=== PATIENT | female | born 1960 ===

== ENCOUNTER → 2020-07-29 09:43 | Outpatient (BNVA) | payer MEDICAID, SELFPAY | PROVIDERS: PCP Nurse Practitioner Family; Visit Provider Student in an Organized Health Care Education/Training Program | DX: Z76.89 Persons encountering health services in other specified circumstances (principal) ==

== ENCOUNTER → 2021-05-09 09:44 | Outpatient (BNV) | payer MEDICARE, MEDICAID, SELFPAY | PROVIDERS: PCP General Practice; Visit Provider Internal Medicine Medical Oncology | DX: D64.9 Anemia, unspecified (principal) | CPT/HCPCS: 99212; 99213; 99214 ==

== ENCOUNTER → 2021-10-28 10:26 | Outpatient (BNVA) | payer MEDICARE, MEDICAID, SELFPAY | PROVIDERS: PCP General Practice; Visit Provider Nurse Practitioner Family | DX: M47.816 Spondylosis without myelopathy or radiculopathy, lumbar region (principal); M79.7 Fibromyalgia | CPT/HCPCS: 99212 ==

== ENCOUNTER → 2022-11-17 10:52 | Outpatient (BNVA) | payer MEDICARE, MEDICAID, SELFPAY | PROVIDERS: PCP General Practice; Visit Provider Nurse Practitioner Family | DX: M79.7 Fibromyalgia (principal); M47.816 Spondylosis without myelopathy or radiculopathy, lumbar region | CPT/HCPCS: 36415; 80053; 85025; 99212 ==

== ENCOUNTER 2022-11-17 11:46 | Outpatient (REF) | payer MEDICARE, MEDICAID, SELFPAY ==
[2022-11-17 13:10] LABS: MANUAL DIFF FLAG NO
[2022-11-17 13:15] LABS: Basophils Absolute Auto 0.1 X10*3/uL (0.0-0.2); Basophils Percent Auto 0.9 % (0-2); Eosinophils Absolute Auto 0.2 X10*3/uL (0.0-0.4); Hematocrit 34.9 % (37.0-47.0); Hemoglobin 10.8 g/dl (12.0-16.0); Imm Gran Abs Auto 0.05 X10*3/uL (0.00-0.03); Imm Gran Pct Auto 0.5 % (0.0-0.4); Lymphocytes Absolute Auto 2.7 X10*3/uL (1.2-4.9); Lymphocytes Percent Auto 25.1 % (20-40); Mean Corpuscular HGB Conc 30.9 g/dl (31.0-35.0); Mean Corpuscular Hemoglobin 25.8 pg (27.0-33.0); Mean Corpuscular Volume 83.5 fL (80.0-98.0); Monocytes Absolute Auto 0.7 X10*3/uL (0.1-1.2); Monocytes Percent Auto 6.7 % (2-11); Neutrophils Percent Auto 64.8 % (45-73); Platelet Count 326 X10*3/uL (160-400); Red Blood Count 4.18 X10*6/uL (4.20-5.50); Red Cell Distribution Width 12.2 % (11.0-16.0); White Blood Count 10.8 X10*3/uL (4.8-10.8)
[2022-11-17 13:52] LABS: Alanine Aminotransferase 25 U/L (0-31); Albumin Level 4.3 g/dL (3.5-5.0); Alkaline Phosphatase 77 U/L (39-117); Anion Gap 10 (12-20); Aspartate Amino Transferase 19 U/L (5-31); Bilirubin Total 0.4 mg/dL (0.0-1.0); Blood Urea Nitrogen 14 mg/dL (9-16); Calcium 9.9 mg/dL (8.4-10.2); Carbon Dioxide 31 mmol/L (22-29); Chloride 103 mmol/L (96-108); Estimated Glomerular Filt Rate > 60; Glucose Random 102 mg/dL (60-115); Potassium 4.2 mmol/L (3.3-5.1); Sodium 140 mmol/L (135-145); Total Protein 7.5 g/dL (6.5-8.0)
== END 2022-11-17 11:47 | disposition home or self-care (01) ==
LOC: HO.10HDL 11:46
PROVIDERS: Visit Provider Nurse Practitioner Family
DX: Z13.89 Encounter for screening for other disorder (principal)
CPT/HCPCS: 36415; 80053; 85025

== ENCOUNTER 2023-03-14 10:58 | Outpatient (AMB) | payer MEDICARE, MEDICAID, SELFPAY ==
--- NOTE | 2023-03-14 11:06 | A.OFFVIS_ITS ---
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 Personnel Quality Assurance Auditor Required: Yes Personnel Quality Assurance Auditor Language: Online Marketing Manager Name: Emilia [id number] [employer] Ipad Accompanied by: Self / Same As Patient Allergies aspirin [ASA] Allergy (Intermediate, Verified 03/14/23 11:09) Rash doxycycline [DOXYCYCLINE] Allergy (Intermediate, Verified 03/14/23 11:09) CHEST PAIN, RASH Medication List - Last Reconciled 03/14/23 by Salo Delgado MD ascorbic acid (vitamin C) (Vitamin C) 1 tab PO DAILY cholecalciferol (vitamin D3) (Vitamin D3) 1 cap PO DAILY dietary supplement 675 caps PO DAILY dietary supplement 790 caps PO DAILY ferrous sulfate 1 tab PO BID ibuprofen 1 tab PO TID PRN lisinopril-hydrochlorothiazide 20-25 mg 1 tab PO DAILY omeprazole 20 mg PO DAILY HPI HPI Comments History of Present Illness Details [age] year female who is referred to us for palpitations. She has background history of iron deficiency anemia and has been on iron supplements and vitamin-C. She has been experiencing palpitations specially when she is going up stairs. She also gets some shortness of breath. No chest discomfort. She is saying that she get these symptoms approximately 2 to 3 times a week. Today she climbed up couple of flights of stairs to reach the office and had palpitations. Blood pressure control is good. She has known history hypertension is currently taking lisinopril and hydrochlorothiazide combination. She has not had any TSH testing in the last couple of years. has dementia and also underwent bypass surgery and she is under lot of stress too. [facility] Medical History Fibromyalgia Hair loss Lumbar spondylosis Surgical History History of lumpectomy of left breast Hx of carpal tunnel repair Hx of cholecystectomy Family History Mother HTN (hypertension) Brother Prostate cancer Daughter Diabetes Asthma HTN (hypertension) Social History Household Members: Spouse and Children Housing: House Are you a primary pet care technician to a significant other at home: No Do you presently have visiting nurse or other home services: No Alcohol intake: never Patient Tobacco Use Status: Never used Tobacco service: No Current occupational status: disabled Review of Systems Const Denies chills, Denies daytime sleepiness, Denies fatigue, Denies fever(s), Denies frequent falls, Denies night sweats, Denies snoring, Denies weakness, Denies weight gain and Denies weight loss Eyes Denies loss of vision ENT Denies dizziness and Denies hearing loss Card Denies chest pain, Denies chest pain with activity, Denies syncope, Denies rapid heart rate, Denies edema, Denies claudication, Denies leg edema, Denies lightheadedness, Denies palpitations, Denies dyspnea, Denies dyspnea on exertion and Denies orthopnea Resp Denies cough, Denies excessive phlegm production, Denies dyspnea, Denies dyspnea on exertion, Denies snoring and Denies wheezing GI Denies abdominal pain, Denies hematochezia, Denies change in bowel habits, Denies change in stool character, Denies heartburn, Denies nausea and Denies vomiting Denies hematuria, Denies urinary frequency and Denies dysuria Musc Denies arthralgias, Denies muscle weakness, Denies numbness and Denies tingling Skin/Breast Denies nail changes and Denies rash Neuro Denies Abnormal speech present, Denies dizziness, Denies syncope, Denies frequent falls, Denies loss of vision, Denies memory loss, Denies numbness, Denies tingling and Denies weakness Psych Denies depression and Denies memory loss Endo Denies fatigue and Denies palpitations Aller/Immun Denies wheezing Physical Exam Vital Signs: Last Vital Signs Pulse 62 03/14/23 11:07 BP 124/74 03/14/23 11:07 BMI result Body Mass Index 34.5 GENERAL APPEARANCE: in no acute distress, pleasant. NECK: no carotid bruit, no jugular venous distention. SKIN: no suspicious lesions, warm and dry. HEART: no murmurs, regular rate and rhythm. LUNGS: clear to auscultation bilaterally. ABDOMEN: soft, nontender. EXTREMITIES: no edema. PERIPHERAL PULSES: equal. NEUROLOGIC: No gross deficits, AAO X 3 Neuro Speech: No Abnormal speech present Office Procedures EKG Details: Normal sinus rhythm 62 beats per minute, left axis deviation, left ventricular hypertrophy, QTC 432 milliseconds. [id number], Complete Assessment & Plan Assessment & Plan (1) Palpitations: Code(s): R00.2 - Palpitations (2) Essential hypertension: Code(s): I10 - Essential (primary) hypertension Plan Pleasant 62 year female with hypertension and palpitations. Blood pressure control is good on the current regimen. She should have once a year basic metabolic panel and fasting lipid panel. She has iron deficiency anemia and has been on iron supplements and vitamin-C. Palpitations can be related to anemia, other possibilities are significant stress in her life due to her 's illness. She has not had any TSH monitoring recently. We will check for hyperthyroidism. I will arrange a 7 day Holter monitor for her. We will also inject echocardiogram to rule out any structural heart issues. Follow-up with us in few months. Thank you for allowing me to participate in the care of your patient. Please feel free to contact me if you have any questions. Orders: Orders CA echo transthoracic complete Today R00.2 - Palpitations TSH reflex Free T4 Today R00.2 - Palpitations ECG 7 day holter monitor Today R00.2 - Palpitations Coding Level of Care Code New Pt Level 4 (85844) Diagnoses Palpitations R00.2 Essential hypertension I10 CPT Codes EKG - CPT: 47627-[id number], Complete ([id number])
[2023-03-14 11:07] VITALS: BP 124/74; PULSE 62; BMI 34.5
== END 2023-03-14 11:30 | disposition home or self-care (01) ==
LOC: HO.HCSM 10:58
PROVIDERS: PCP General Practice; Visit Provider Internal Medicine Cardiovascular Disease
DX: R00.2 Palpitations (principal); I10 Essential (primary) hypertension
CPT/HCPCS: 93010; 99204

== ENCOUNTER → 2023-03-14 10:58 | Outpatient (BNVA) | payer MEDICARE, MEDICAID, SELFPAY | PROVIDERS: PCP General Practice; Visit Provider Internal Medicine Cardiovascular Disease | DX: R00.2 Palpitations (principal); I10 Essential (primary) hypertension | CPT/HCPCS: 36415; 84443; 93005; 99202 ==

== ENCOUNTER 2023-03-14 11:46 | Outpatient (REF) | payer MEDICARE, MEDICAID, SELFPAY ==
[2023-03-14 14:33] LABS: TSH reflex Free T4 1.86 uIU/mL (0.32-4.0)
== END 2023-03-14 11:47 | disposition home or self-care (01) ==
LOC: HO.HHCL 11:46
PROVIDERS: Visit Provider Internal Medicine Cardiovascular Disease
DX: Z13.89 Encounter for screening for other disorder (principal)
CPT/HCPCS: 36415; 84443

== ENCOUNTER → 2023-04-12 12:52 | Outpatient (REF) | payer MEDICARE, MEDICAID, SELFPAY ==
--- NOTE | 2023-04-12 12:54 | CA_ITS ---
Transthoracic Echocardiogram Patient (Last, First, Middle): Lkashmi Salguero, Gender: Female Date of : 1960 Age: 62 Procedure Date: 04/12/2023 Procedure Type: Transthoracic Echocardiogram Location: OP Height: 160.02 cm Weight: 89.36 kg BSA: 1.92 m2 Heart Rate: bpm BP: 128 / 76 mmHg Courtesy Car Driver: RONAN Referring MD: Salo Delgado MD Environmental Conservation Officer: Salo Delgado MD Symptoms: R00.2 - Palpitations Study Quality: Fair ECG Rhythm: Sinus Conclusions: - The left ventricular systolic function is normal. The visually estimated ejection fraction is between 55-60%. - No obvious valvular pathology seen on this study. Findings Procedure Information The patient declines contrast. Left Ventricle Normal left ventricular cavity size. There is mildly increased left ventricular wall thickness. The left ventricular systolic function is normal. The visually estimated ejection fraction is between 55-60%. There is no evidence of regional wall motion abnormalities. Diastolic function is normal for age. Right Ventricle Normal right ventricular cavity size and systolic function. Atria Both atria are normal in size. Aortic Valve There is a normal trileaflet aortic valve. There is no aortic valve stenosis. There is no aortic valve regurgitation. Mitral Valve The mitral valve appears normal. There is no mitral valve regurgitation. There is no mitral valve stenosis. Pulmonic Valve The pulmonic valve is likely normal. Tricuspid Valve Normal tricuspid valve structure. There is no tricuspid valve regurgitation. Tricuspid regurgitation envelope is inadequate for calculation of right ventricular systolic pressure. Great Vessels The asc aorta is normal in size. Venous The inferior vena cava was not well visualized. Pericardium/Pleural There is no evidence of pericardial effusion. Prior Study Comparison No significant change compared to prior study dated: 11/16/2009. Recommendations, Care & Conclusions No obvious valvular pathology seen on this study. Measurements 2D Linear Measurements IVSd: 0.96 0.6-0.9/0.6-1.0 cm LVIDd: 4.90 3.9-5.3/4.2-5.9 cm LVIDd Index: 2.55 2.4-3.2/2.2-3.1 cm/m2 LVIDs: 3.71 2.0-3.6 cm LVPWd: 1.16 0.7-1.1 cm LA Diam: 4.00 2.7-3.8/3.0-4.0 cm LAIDs Index: 2.08 1.5-2.3 cm/m2 LV Mass: 236.82 67-162/88-224 g LV Mass Index: 123.34 43-95/49-115 g/m2 LVOT Diam: 2.10 3.0+(-)1.3 cm Mitral Valve MV Pk E: 0.76 MV PK A: 0.89 MV Decel Time: 327.00 E/A: 0.90 E'Lateral: 10.90 E'Medial: 6.31 E/E' Med: 12.10 E/E' Lat: 7.00 PHT: 96.00 MVA PHT: 2.29 Decel [place]: 2.33 Aortic Valve AoV Pk Lul: 1.30 AoV Mn Lul: 0.90 AoV VTI: 0.31 AoV Pk Grad: 7.00 Aov Mn Grad: 4.00 MACK Cont.VTI: 2.48 LVOT LVOT Pk Lul: 0.95 LVOT Mn Lul: 0.63 LVOT VTI: 0.22 LVOT Pk Grad: 4.00 LVOT Mn Grad: 2.00 LVOT Diam: 2.10 LVOT Area: 3.46 Diastolic Function MV Pk E: 0.76 MV Pk A: 0.89 E/A: 0.90 E'Medial: 6.31 E/E' Med: 12.10 E' Laterial: 10.90 E/E' Lat: 7.00 Great Vessels Aorta Sinus of Valsalva: 3.27 2.0-3.[address] [place]: 2.10 1.7-3.4 cm Ao Asc: 3.00 2.1-3.4 cm Updated in Other Vendor System with Status of Final Prosper Macias MD electronically signed on 04/14/2023 10:06:09 AM with status of Final
--- NOTE | 2023-04-12 12:54 | HM_ITS ---
* Total monitoring time about 7 days. * Underlying rhythm is sinus. Average ventricular rate 72/Min. Range 43 to 121/Min. * Occasional supraventricular ectopy with a burden of 0.4%. Brief runs noted. Longest 27 beats. * Occasional ventricular ectopy. Foley of 0.25%. Two short runs. Longest 9 beats- cannot exclude supraventricular rhythm with aberrancy. * No significant pauses or AV blocks. * Palpitations in diary correlates with supraventricular ectopy. MTDD
[2023-04-12 14:05] LABS: MANUAL DIFF FLAG NO
[2023-04-12 14:50] LABS: Basophils Absolute Auto 0.1 X10*3/uL (0.0-0.2); Basophils Percent Auto 0.9 % (0-2); Eosinophils Absolute Auto 0.3 X10*3/uL (0.0-0.4); Eosinophils Percent Auto 2.5 % (0-4); Hematocrit 35.8 % (37.0-47.0); Hemoglobin 11.1 g/dl (12.0-16.0); Imm Gran Abs Auto 0.05 X10*3/uL (0.00-0.03); Imm Gran Pct Auto 0.4 % (0.0-0.4); Lymphocytes Absolute Auto 2.8 X10*3/uL (1.2-4.9); Lymphocytes Percent Auto 24.7 % (20-40); Mean Corpuscular Hemoglobin 26.1 pg (27.0-33.0); Mean Corpuscular Volume 84.2 fL (80.0-98.0); Mean Platelet Volume 12.2 fL (9.4-12.3); Monocytes Absolute Auto 0.8 X10*3/uL (0.1-1.2); Neutrophils Absolute Auto 7.2 x10*3/uL (2.0-8.3); Neutrophils Percent Auto 64.5 % (45-73); Platelet Count 353 X10*3/uL (160-400); Red Blood Count 4.25 X10*6/uL (4.20-5.50); Red Cell Distribution Width 12.4 % (11.0-16.0); White Blood Count 11.2 X10*3/uL (4.8-10.8)
[2023-04-12 16:04] LABS: Anion Gap 11 (12-20); Blood Urea Nitrogen 13 mg/dL (9-16); Calcium 10.4 mg/dL (8.4-10.2); Carbon Dioxide 31 mmol/L (22-29); Chloride 102 mmol/L (96-108); Cholesterol 181 mg/dL (<200); Estimated Glomerular Filt Rate 56; Glucose Random 101 mg/dL (60-115); HDL Cholesterol 43 mg/dL (>40); LDL Cholesterol Calculated 119 mg/dL (<100); Potassium 3.9 mmol/L (3.3-5.1); Sodium 140 mmol/L (135-145); Triglycerides 98 mg/dL (<150)
== END ==
LOC: HO.CARD 12:52
PROVIDERS: PCP General Practice; Visit Provider Internal Medicine Cardiovascular Disease
DX: R00.2 Palpitations (principal); Z13.89 Encounter for screening for other disorder
CPT/HCPCS: 36415; 80048; 80061; 85025; 93242; 93306

== ENCOUNTER → 2023-04-12 12:54 | Outpatient (BNV) | payer MEDICARE, MEDICAID, SELFPAY | PROVIDERS: PCP General Practice; Visit Provider Internal Medicine | DX: I47.1 Supraventricular tachycardia (principal) | CPT/HCPCS: 93244; 93306 ==

== ENCOUNTER 2023-06-25 12:45 | Outpatient (AMB) | payer MEDICARE, MEDICAID, SELFPAY ==
--- NOTE | 2023-06-25 12:47 | MHC.OFFVIS ---
Intake Vital Signs 06/25/23 12:54 Height 5 ft 3 in Weight 194 lb 0.108 oz BMI 34.4 BP 118/62 Blood Pressure Location Lt brachial Position Sitting Pulse 68 Pulse Source Palpation Intake Visit Reasons: 3 month follow up after testing Intake Note: Lakshmi is a 62 year old female who presents today for a follow up appointment. Patient reports she is doing well. She states that her metropolol is making her a bit tired. Allergies aspirin [ASA] Allergy (Intermediate, Verified 05/21/23 15:05) Rash doxycycline [DOXYCYCLINE] Allergy (Intermediate, Verified 05/21/23 15:05) CHEST PAIN, RASH Medication List - Last Reconciled 06/25/23 by Salo Delgado MD ascorbic acid (vitamin C) (Vitamin C) 1 tab PO DAILY cholecalciferol (vitamin D3) (Vitamin D3) 1 cap PO DAILY dietary supplement 675 caps PO DAILY dietary supplement 790 caps PO DAILY ferrous sulfate 1 tab PO BID ibuprofen 1 tab PO TID PRN lisinopril-hydrochlorothiazide 20-25 mg 1 tab PO DAILY metoprolol succinate ER (Toprol XL) 25 mg PO DAILY omeprazole 20 mg PO DAILY HPI HPI Comments History of Present Illness Details [age] year female who is referred to us for palpitations. She has background history of iron deficiency anemia and has been on iron supplements and vitamin-C. She has been experiencing palpitations specially when she is going up stairs. She also gets some shortness of breath. No chest discomfort. She is saying that she get these symptoms approximately 2 to 3 times a week. Today she climbed up couple of flights of stairs to reach the office and had palpitations. Blood pressure control is good. She has known history hypertension is currently taking lisinopril and hydrochlorothiazide combination. She has not had any TSH testing in the last couple of years. has dementia and also underwent bypass surgery and she is under lot of stress too. 06/25/23: She returns for f/u. She is saying that she feels fatigued after taking metoprolol. She also has iron deficiency anemia and is getting iron infusions and following with Hematology. Continues to get some palpitations off and on. No chest discomfort shortness of breath. [facility] Medical History Fibromyalgia Hair loss Lumbar spondylosis Surgical History History of lumpectomy of left breast Hx of carpal tunnel repair Hx of cholecystectomy Family History Mother HTN (hypertension) Brother Prostate cancer Daughter Diabetes Asthma HTN (hypertension) Social History Household Members: Spouse and Children Housing: House Are you a primary child care associate teacher to a significant other at home: No Do you presently have visiting nurse or other home services: No Alcohol intake: never Patient Tobacco Use Status: Never used Tobacco service: No Current occupational status: disabled Physical Exam Vital Signs: Last Vital Signs Pulse 68 06/25/23 12:54 BP 118/62 06/25/23 12:54 BMI result Body Mass Index 34.4 GENERAL APPEARANCE: in no acute distress, pleasant. NECK: no carotid bruit, no jugular venous distention. SKIN: no suspicious lesions, warm and dry. HEART: no murmurs, regular rate and rhythm. LUNGS: clear to auscultation bilaterally. ABDOMEN: soft, nontender. EXTREMITIES: no edema. PERIPHERAL PULSES: equal. NEUROLOGIC: No gross deficits, AAO X 3 Assessment & Plan Assessment & Plan (1) Essential hypertension: Code(s): I10 - Essential (primary) hypertension (2) Palpitations: Code(s): R00.2 - Palpitations Plan Pleasant 62-year-old female who is here for follow-up. She is on metoprolol XL 25 mg daily and lisinopril hydrochlorothiazide combination 20-25 mg. Blood pressure control is good. She still complaining of some palpitations. Holter monitor did not show any significant arrhythmia. My plan was to increase her Toprol-XL but she is complaining of some fatigue currently so I would hold off on increasing Toprol-XL. As her anemia improves we will reassess her to see for symptoms of fatigue are improving. If her symptoms improved then we can consider titrating Toprol-XL further. Thank you for allowing me to participate in the care of your patient. Please feel free to contact me if you have any questions. Coding Level of Care Code Est Pt Level 3 (82195) Diagnoses Essential hypertension I10 Palpitations R00.2
[2023-06-25 12:54] VITALS: BP 118/62; PULSE 68; BMI 34.4
== END 2023-06-25 13:18 | disposition home or self-care (01) ==
PROVIDERS: PCP General Practice; Visit Provider Internal Medicine Cardiovascular Disease
DX: I10 Essential (primary) hypertension (principal); R00.2 Palpitations
CPT/HCPCS: 99213

== ENCOUNTER → 2023-06-25 12:45 | Outpatient (BNVA) | payer MEDICARE, MEDICAID, SELFPAY | PROVIDERS: PCP General Practice; Visit Provider Internal Medicine Cardiovascular Disease | DX: I10 Essential (primary) hypertension (principal); R00.2 Palpitations; Z79.899 Other long term (current) drug therapy | CPT/HCPCS: 99212 ==

== ENCOUNTER 2023-09-24 19:33 | Outpatient (REF) | payer OTHER, SELFPAY ==
[2023-09-27 00:08] LABS: C. trachomatis RNA TMA NOT DETECTED (NOT DETECTED); Candida glabrata RNA NOT DETECTED (NOT DETECTED); Candida species RNA NOT DETECTED (NOT DETECTED); N. gonorrhoeae RNA TMA NOT DETECTED (NOT DETECTED); Trichomonas vaginalis RNA NOT DETECTED (NOT DETECTED)
== END 2023-09-24 19:34 | disposition home or self-care (01) ==
LOC: HO.HHCLNP 19:33
PROVIDERS: Visit Provider General Practice
DX: N89.8 Other specified noninflammatory disorders of vagina (principal)
CPT/HCPCS: 36415; 81513; 87481; 87491; 87591; 87661

== ENCOUNTER 2023-10-29 13:06 | Outpatient (AMB) | payer OTHER, SELFPAY ==
[2023-10-29 13:12] VITALS: BP 120/62; PULSE 58; BMI 33.7
--- NOTE | 2023-10-29 13:12 | MHC.OFFVIS ---
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 Allergies aspirin [ASA] Allergy (Intermediate, Verified 10/29/23 13:15) Rash doxycycline [DOXYCYCLINE] Allergy (Intermediate, Verified 10/29/23 13:15) CHEST PAIN, RASH Medication List - Last Reconciled 10/29/23 by Rose Lopez NP-C ascorbic acid (vitamin C) (Vitamin C) 1 tab PO DAILY cholecalciferol (vitamin D3) (Vitamin D3) 1 cap PO DAILY ferrous sulfate 1 tab PO BID ibuprofen 1 tab PO TID PRN lisinopril-hydrochlorothiazide 20-25 mg 1 tab PO DAILY metoprolol succinate ER (Toprol XL) 25 mg PO DAILY omeprazole 20 mg PO DAILY HPI 4 mth KM HPI Details Lakshmi is a 63-year-old female past medical history of hypertension, heart palpitations, brief SVT runs who presents for follow-up Today she reports that she continues to notice heart palpitations mostly when she is climbing stairs to her 2nd floor apartment. She states the episodes do not last long. She has no sustained rapid or irregular heartbeats. No dizziness, presyncope, syncope, falls. No chest discomfort at rest or with activity. No shortness of breath, PND, orthopnea or edema. Taking all meds as directed. She does no routine exercise. Under high stress recently. States her just got home from the hospital today and they want her to sign paperwork for hospice. She states she is not ready to do that yet. [facility] Medical History Hair loss Fibromyalgia Lumbar spondylosis Surgical History Hx of carpal tunnel repair Hx of cholecystectomy History of lumpectomy of left breast Family History Mother HTN (hypertension) Brother Prostate cancer Daughter Diabetes Asthma HTN (hypertension) Social History Household Members: Spouse and Children Housing: House Are you a primary healthcare administrator to a significant other at home: No Do you presently have visiting nurse or other home services: No Alcohol intake: never Patient Tobacco Use Status: Never used Tobacco service: No Current occupational status: disabled Review of Systems Const All systems reviewed & are unremarkable except as noted in HPI and below ENT Denies dizziness Card Denies chest pain, Denies chest pain at rest, Denies chest pain with activity, Reports rapid heart rate, Denies pedal edema, Denies edema, Denies leg edema, Denies lightheadedness, Denies palpitations, Denies dyspnea, Denies dyspnea on exertion and Denies orthopnea Resp Denies cough, Denies dyspnea and Denies dyspnea on exertion GI Denies hematochezia and Denies change in stool character Musc Denies abnormal gait, Denies limited range of motion, Denies muscle cramps, Denies muscle weakness, Denies numbness, Denies radiating pain into limb, Denies stiffness and Denies tingling Neuro Denies abnormal gait, Denies dizziness, Denies numbness and Denies tingling Endo Denies palpitations Physical Exam Vital Signs: Last Vital Signs Pulse 58 10/29/23 13:12 BP 120/62 10/29/23 13:12 BMI result Body Mass Index 33.7 Const General: cooperative, healthy appearing, comfortable and no acute distress Orientation/consciousness: patient oriented x3 Neck Neck: Yes normal visual inspection Resp Effort & Inspection: normal respiratory effort Auscultation: clear to auscultation bilaterally, no crackles, no rales, no rhonchi and no wheezes Cardio Jugular venous distension: no JVD Rate: regular rate Rhythm: regular rhythm Heart sounds: S1 normal heart sound present, S2 normal heart sound present, no murmurs and no rubs Neuro General: patient oriented x3 Extrem General: Yes normal to inspection and No no pedal edema Psych Appearance: grossly normal Mental Status: mental status grossly normal Speech and movement: Normal speech and movement present Assessment & Plan Assessment & Plan (1) Palpitations: Code(s): R00.2 - Palpitations Plan: Reports of heart palpitations, mostly when climbing stairs to her 2nd floor apartment. A Holter monitor was done 04/12/2023 for 7 days shows sinus rhythm with average heart rate 72, heart rate range 43 to 121, occasional SVE with brief runs up to 27 beats, occasional VE with longest run 9 beats. No presyncope, syncope, falls. She does continue to report heart palpitations with stair climbing. Is not bothered by heart palpitations at other times. Will continue on metoprolol at current dose of 25 mg daily. Her resting heart rate is 58. Not able to safely increase metoprolol at this time. If she has a day with extra heart palpitations she could take an additional half tablet. Avoid caffeinated beverages. Reviewed good hydration, adequate rest, exercise, stress reduction activities. Cardiology follow-up in 6 months, sooner if needed (2) Atrial tachycardia: Code(s): I47.19 - Other supraventricular tachycardia Plan: Brief runs as above (3) Essential hypertension: Code(s): I10 - Essential (primary) hypertension Plan: Well controlled at this time Plan Time spent on chart review, documentation, interview and assessment Coding Level of Care Code Est Pt Level 3 (07638) Diagnoses Palpitations R00.2 Atrial tachycardia I47.19 Essential hypertension I10 Time Spent (min) 24
== END 2023-10-29 13:37 | disposition home or self-care (01) ==
PROVIDERS: PCP General Practice; Visit Provider Nurse Practitioner Family
DX: R00.2 Palpitations (principal); I47.19 Other supraventricular tachycardia; I10 Essential (primary) hypertension
CPT/HCPCS: 99213

== ENCOUNTER → 2023-10-29 13:06 | Outpatient (BNVA) | payer OTHER, SELFPAY | PROVIDERS: PCP General Practice; Visit Provider Nurse Practitioner Family | DX: R00.2 Palpitations (principal); I47.19 Other supraventricular tachycardia; I10 Essential (primary) hypertension | CPT/HCPCS: 99212 ==

== ENCOUNTER 2023-11-20 13:33 | Outpatient (AMB) | payer OTHER, MEDICAID, SELFPAY ==
--- NOTE | 2023-11-20 13:41 | MHC.OFFVIS ---
Intake Vital Signs 11/20/23 13:50 Height 5 ft 3 in Weight 190 lb 4.143 oz BMI 33.7 BP 100/70 Blood Pressure Location Rt brachial Position Sitting Pulse 71 Pulse Source Pulse Oximeter Pulse Oximetry (%) 97 Oxygen Delivery Method Room Air Intake Visit Reasons: fibromyaliga/CM Intake Note: Patient last seen 11/17/22 by Jennifer, presents today for yearly follow up. Photogrammetric Stereo Compiler Required: No Accompanied by: Self / Same As Patient Allergies aspirin [ASA] Allergy (Intermediate, Verified 11/20/23 13:50) Rash doxycycline [DOXYCYCLINE] Allergy (Intermediate, Verified 11/20/23 13:50) CHEST PAIN, RASH HPI HPI Comments History of Present Illness Details Ms. Jose M Mckeon presents for follow-up of lumbar spondylosis and fibromyalgia. Last visit October 2022 with Sammi. Her complaints continues to be much about the same, total body pain. Her chronic low back pain is somewhat stable. She uses ibuprofen and Flexeril that she finds helpful. Her bilateral hip bursae is bothering her and prevents her from getting a good night's sleep. 11/17/2022 Sammi Mckeon presents for follow-up of lumbar spondylosis and fibromyalgia. Last visit October 2021. Patient reports she has been feeling tired lately. She denies any joint pain or swelling. States that she is sleeping well. Denies depression. She manages her fibromyalgia symptoms currently with prn Motrin. She has chronic low back pain that has been stable. She denies numbness or bladder involvement. She admits to history of bilateral carpal tunnel surgery on the right and injections on the left. She reports intermittent numbness in both hands that is not bothersome to her at this time. She denies any concerns today. Follows with Hematology for chronic anemia. [facility] Medical History (Updated 11/20/23 @ 14:32 by BAUDILIO Velazquez) Trochanteric bursitis, left hip Trochanteric bursitis, right hip Osteoarthritis involving multiple joints on both sides of body Hair loss Fibromyalgia Lumbar spondylosis Surgical History Hx of carpal tunnel repair Hx of cholecystectomy History of lumpectomy of left breast Family History Mother HTN (hypertension) Brother Prostate cancer Daughter Diabetes Asthma HTN (hypertension) Social History Household Members: Spouse and Children Housing: House Are you a primary acute care registered nurse to a significant other at home: No Do you presently have visiting nurse or other home services: No Alcohol intake: never Patient Tobacco Use Status: Never used Tobacco service: No Current occupational status: disabled Review of Systems Const All systems reviewed & are unremarkable except as noted in HPI and below Physical Exam Vital Signs: Last Vital Signs Pulse 71 11/20/23 13:50 BP 100/70 11/20/23 13:50 Pulse Ox 97 11/20/23 13:50 Oxygen Delivery Method Room Air 11/20/23 13:50 BMI result Body Mass Index 33.7 APPEARANCE: Patient in no acute distress EYES: no redness, eyelids normal EARS: External ear normal NOSE/SINUS: Airflow through both nares, no nasal discharge, no bleeding THROAT: Oral mucosa moist, no ulcerations NECK: No thyromegaly or masses, no adenopathy, trachea midline. HEART: Regular rhythm, S1-S2 heard, no murmurs, rubs or gallops. LUNG: Clear to auscultation, respiratory rate regular nonlabored. ABD: Normal bowel sounds, abdomen soft, nontender. EXTREMITIES: No edema, no calf tenderness, normal peripheral pulses. NEURO: Oriented and alert x3. No focal weakness. Gait normal. SKIN: No inflammatory or neoplastic lesions. Normal color and turgor JOINT EXAM:? Cervical Spine: Full range of motion without pain; no tenderness. Thoracic Spine:? No scoliosis.? No tenderness on palpation. Lumbar Spine:? Alignment normal.? Full range of motion, slight pain in the lumbar spine reported with flexion with slight tenderness to palpation. Hands: Normal pain-free range of motion without tenderness, swelling, increased warmth or erythema. Able to make a full fist and has a good account manager education strength. Wrists:? Normal pain-free range of motion without tenderness, swelling, increased warmth or erythema. Elbows: Normal pain-free range of motion without tenderness, swelling, increased warmth or erythema. Widespread diffuse tenderness to palpation down the left forearm. Shoulders:? Full range of motion without pain. No tenderness, weakness, swelling, increased warmth or erythema. Hips: Full range of motion without pain. Hip bursa:? Moderate tenderness. Knees: Normal pain-free range of motion without tenderness, swelling, increased warmth or erythema.? There is no effusion or crepitation. Widespread diffuse tenderness to palpation down both shins more so on the left. Ankles:? Normal pain-free range of motion without tenderness, swelling, increased warmth or erythema. Feet: Normal pain-free range of motion without tenderness, swelling, increased warmth or erythema. Tender points: No tenderness to digital palpation at the occiput, trapezius, second rib, lateral epicondyle, knees, greater trochanter and gluteal area bilaterally. Office Procedures Joint Injection/Drain Joint Injection/Drain Details: Bilateral Trochanteric Bursa injections Primary Site: other (Right Trochanteric Bursa) Secondary Site: other (Left Trochanteric Bursa) Prep: site was prepped using aseptic technique Injected: 60 mg of, Kenalog, with 1 mL of and 1% plain lidocaine Approach Used: posterolateral Procedure: The patient tolerated the procedure well Coding 40884 - Glenohumeral/Tronchanteric Bursa/Intraarticular Procedure code (CPT) selection complete Assessment & Plan Assessment & Plan (1) Lumbar spondylosis: Code(s): M47.816 - Spondylosis without myelopathy or radiculopathy, lumbar region (2) Fibromyalgia: Code(s): M79.7 - Fibromyalgia (3) Trochanteric bursitis, left hip: Code(s): M70.62 - Trochanteric bursitis, left hip (4) Trochanteric bursitis, right hip: Code(s): M70.61 - Trochanteric bursitis, right hip (5) Osteoarthritis involving multiple joints on both sides of body: Code(s): M15.9 - Polyosteoarthritis, unspecified Plan #Bilateral Trochanteric Bursitis: Very tender on palpation. Injected today with corticosteroids. Patient tolerated the procedure well. I also gave her a printout of some exercises to do at home that can help hip bursitis. We discussed that she should not engage in any strenuous hip activity for the next few days. She can apply cold compresses to the area if there is any tenderness or redness #Lumbar Pain:Slight tenderness to palpation of lumbar spine and some discomfort with flexion on exam today. Overall low back pain is well controlled. Continue prn Ativan, topicals, heat and stretching. #Fibromyalgia/OA multiple sites: Patient has some areas of widespread diffuse tenderness on exam, overall her fibromyalgia appears stable. She also has OA to lower back and knees. She is managing her symptoms with prn ibuprofen. Will update NSAID monitoring blood work and renew prescription for ibuprofen 800 mg b.i.d.. Discussed with patient to be judicious with ibuprofen, take with food, look out for signs and symptoms of bleeding. Encouraged patient to incorporate light daily activity as tolerated. Advised patient to continue follow-up with hematology for chronic anemia. Thirty minutes spent reviewing history, evaluating patient and documenting. Follow-up in 3 months Orders: Orders C Reactive Protein 11/20/23 M15.9 - Polyosteoarthritis, unspecified Erythrocyte Sedimentation Rate 11/20/23 M15.9 - Polyosteoarthritis, unspecified AMB Joint Injection/Aspiration 11/20/23 M70.61 - Trochanteric bursitis, right hip, M70.62 - Trochanteric bursitis, left hip Medications: New ibuprofen 800 mg PO BID PRN 180 tabs 0RF pain M79.7 - Fibromyalgia Coding Level of Care Code Est Pt Level 4 (59346) Diagnoses Lumbar spondylosis M47.816 Fibromyalgia M79.7 Trochanteric bursitis, left hip M70.62 Trochanteric bursitis, right hip M70.61 Osteoarthritis involving multiple joints on both sides of body M15.9 CPT Codes Coding - Joint 7: 56911 - Glenohumeral/Tronchanteric Bursa/Intraarticular ([id number])
[2023-11-20 13:50] VITALS: BP 100/70; PULSE 71; O2SAT 97; BMI 33.7
== END 2023-11-20 14:34 | disposition home or self-care (01) ==
PROVIDERS: PCP General Practice; Visit Provider Nurse Practitioner Family
DX: M47.816 Spondylosis without myelopathy or radiculopathy, lumbar region (principal); M79.7 Fibromyalgia; M70.62 Trochanteric bursitis, left hip; M70.61 Trochanteric bursitis, right hip; M15.9 Polyosteoarthritis, unspecified
CPT/HCPCS: 20610; 99213

== ENCOUNTER → 2023-11-20 13:33 | Outpatient (BNVA) | payer OTHER, SELFPAY | PROVIDERS: PCP General Practice; Visit Provider Nurse Practitioner Family | DX: M79.7 Fibromyalgia (principal); M70.62 Trochanteric bursitis, left hip; M70.61 Trochanteric bursitis, right hip; M15.9 Polyosteoarthritis, unspecified; M47.816 Spondylosis without myelopathy or radiculopathy, lumbar region | CPT/HCPCS: 20610; 99212 ==

== ENCOUNTER 2024-02-18 10:03 | Outpatient (REF) | payer OTHER, SELFPAY ==
--- NOTE | ~2024-02-18 | MM_ITS ---
EXAMINATION: MM SCREENING DIGITAL BREAST TOMOSYNTHESIS, BILATERAL CLINICAL INFORMATION: Screening. Asymptomatic. COMPARISON: Mammography: This study is compared with prior exams dating back to 2016. TECHNIQUE: Digital breast tomosynthesis is performed in both the craniocaudal and mediolateral oblique views along with computer-aided detection (CAD). Synthesized 2D images are generated from the tomosynthesis. FINDINGS: There are scattered areas of fibroglandular density (ACR BI-RADS breast composition Category b). In the upper outer quadrant of the right breast, there are grouped calcifications. There is suggestion of their association with a low density mass. This could represent an involuting fibroadenoma. Additional mammographic and targeted sonographic imaging of this finding is advised. There are 2 tissue markers in the upper outer quadrant of the right breast from prior benign percutaneous biopsies. In the left breast, there are no significant masses, abnormal calcifications, or other abnormalities. There are bilateral coarse calcifications, some which are circumscribed benign masses in represent involuting fibroadenomata. MM/MM tomosynthesis screening BI IMPRESSION: Grouped calcifications in the upper-outer quadrant warrant additional mammographic imaging with magnification. There is a low-density asymmetry associated with this finding. This could represent an involuting fibroadenoma. Targeted sonography is also recommended given that this could be associated with a mass. Benign findings left breast. ASSESSMENT: BI-RADS BI-RADS 0 - Incomplete: Needs additional Imaging. RECOMMENDATION: Additional views of the right breast. Targeted sonography of the right breast. Radiology department staff will contact the patient for additional imaging. Additional Imaging required This examination should not preclude the clinical evaluation of a suspicious palpable abnormality. This patient's information was entered into a reminder system with a target due date for their next mammogram.
== END 2024-02-18 10:04 | disposition home or self-care (01) ==
LOC: HO.MAMMO 10:03
PROVIDERS: PCP General Practice; Visit Provider General Practice
DX: Z12.31 Encounter for screening mammogram for malignant neoplasm of breast (principal)
CPT/HCPCS: 77063; 77067

== ENCOUNTER → 2024-02-18 10:30 | Outpatient (BNV) | payer OTHER, SELFPAY | PROVIDERS: PCP General Practice; Visit Provider Radiology Diagnostic Radiology | DX: Z12.31 Encounter for screening mammogram for malignant neoplasm of breast (principal) | CPT/HCPCS: 77063; 77067 ==

== ENCOUNTER 2024-03-26 10:55 | Outpatient (REF) | payer OTHER, SELFPAY ==
[2024-03-26 14:15] LABS: Microalbumin Urine < 5.0 mg/L
[2024-03-27 08:03] LABS: HIV AB/AG Nonreactive (Nonreactive); HIV Num 1 0.05 S/CO (0.00-0.99); ~Hepatitis C Antibody Nonreactive (Nonreactive)
== END 2024-03-26 10:56 | disposition home or self-care (01) ==
LOC: HO.HHCL 10:55
PROVIDERS: Visit Provider General Practice
DX: E11.9 Type 2 diabetes mellitus without complications (principal)
CPT/HCPCS: 36415; 82043; 82570; 86803; 87389

== ENCOUNTER 2024-04-23 14:28 | Outpatient (REF) | payer OTHER, SELFPAY ==
--- NOTE | ~2024-04-23 | US_ITS ---
EXAMINATION: MM DIAGNOSTIC DIGITAL BREAST TOMOSYNTHESIS, RIGHT US BREAST LIMITED, RIGHT MAMMOGRAPHY: CLINICAL INFORMATION: Diagnostic, for follow-up grouped calcifications upper outer right breast mid to posterior one third with underlying 8mm masslike density. COMPARISON: Mammography: 02/18/2024 screening, 11/12/2018, 10/24/2017, and 11/04/2014. TECHNIQUE: Digital breast tomosynthesis is performed in the following views: 2-D magnification right CC use x2 and right ML view x1. FINDINGS: There are scattered areas of fibroglandular density (ACR BI-RADS breast composition Category b). Calcifications in the upper outer right breast approximately 10:00 axis, mid to posterior one third, are loosely grouped, coarse in appearance, without significant pleomorphism. There are no branching, casting, or linear forms. These conform to an underlying mass like density, most suggestive of a degenerating fibroadenoma. This will be evaluated with ultrasound. These calcifications are probably benign. There are at least 3 additional oval circumscribed masses, some with similar type dystrophic calcifications, and 2 which have been previously biopsied in the upper outer 11:00 axis, yielding benign fibroadenomas. ULTRASOUND: CLINICAL INFORMATION: As above. COMPARISON: None relevant. TECHNIQUE: Targeted sonographic evaluation was performed using a high frequency linear transducer. Attention was given to the upper outer quadrant of the right breast to include the area of concern. Selected archived documentation. FINDINGS: RIGHT BREAST: Within the 11:00 axis right breast, there are 2 immediately adjacent abutting circumscribed oval hypoechoic masses with good through transmission, with visible biopsy clips abutting the inferior margins, consistent with the known biopsied fibroadenomas. The larger measures 1.1 x 0.4 cm, and the smaller measures 1.0 x 0.4 cm. These are benign. Assessment; coronal access right breast 8 cm from the nipple, there is an oval hypoechoic circumscribed mass with good through transmission, internal calcifications, measuring 0.9 x 0.8 x 0.3 cm, correlating well with the index calcified density. This is most likely a also a benign fibroadenoma. US/US breast RT limited mamm only IMPRESSION: There are no findings suspicious for malignancy in the right breast. 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 No definite need for follow-up ultrasound. Other benign findings in the right breast as discussed. OVERALL ASSESSMENT: Mammography: BI-RADS 3 - Probably benign finding(s) - 6 month follow-up suggested Ultrasound: BI-RADS 3 - Probably benign finding(s) - 6 month follow-up suggested RECOMMENDATION: 6 Month F/U This patient's information was entered into a reminder system with a target due date for their next mammogram. Electronically signed by: Yasir Alvarado MD 04/23/2024 04:03 PM EDT
== END 2024-04-23 14:29 | disposition home or self-care (01) ==
LOC: HO.MAMMO 14:28
PROVIDERS: PCP General Practice; Visit Provider General Practice
DX: R92.1 Mammographic calcification found on diagnostic imaging of breast (principal)
CPT/HCPCS: 76642; 77065

== ENCOUNTER → 2024-04-23 15:00 | Outpatient (BNV) | payer OTHER, SELFPAY | PROVIDERS: PCP General Practice; Visit Provider Radiology Diagnostic Radiology | DX: R92.1 Mammographic calcification found on diagnostic imaging of breast (principal) | CPT/HCPCS: 76642; 77065; G0279 ==

== ENCOUNTER 2024-05-05 10:57 | Outpatient (AMB) | payer OTHER, SELFPAY ==
[2024-05-05 11:10] VITALS: BP 124/62; PULSE 69; BMI 32.8
--- NOTE | 2024-05-05 11:10 | A.OFFVIS_ITS ---
Vital Signs 05/05/24 11:10 Height 5 ft 3 in Weight 185 lb 3.013 oz BMI 32.8 BP 124/62 Blood Pressure Location Lt brachial Position Sitting Pulse 69 Pulse Source Monitor Intake Visit Reasons: 6 month follow up Intake Note: 6 mth f/up Sign Hanger Supervisor Required: Yes Sign Hanger Supervisor Language: Arc And Gas Welder Name: [email or web address] Accompanied by: Self / Same As Patient Allergies aspirin [ASA] Allergy (Intermediate, Verified 11/20/23 13:50) Rash doxycycline [DOXYCYCLINE] Allergy (Intermediate, Verified 11/20/23 13:50) CHEST PAIN, RASH Medication List - Last Reconciled 05/05/24 by Salo Delgado MD ascorbic acid (vitamin C) (Vitamin C) 1 tab PO DAILY cholecalciferol (vitamin D3) (Vitamin D3) 1 cap PO DAILY ferrous sulfate 1 tab PO BID ibuprofen 800 mg PO BID PRN lisinopril-hydrochlorothiazide 20-25 mg 1 tab PO DAILY metformin ER 500 mg PO DAILY metoprolol succinate ER (Toprol XL) 25 mg PO DAILY omeprazole 20 mg PO DAILY HPI Comments Details: 63-year-old female who is referred to us for palpitations. She has background history of iron deficiency anemia and has been on iron supplements and vitamin- C. She has been experiencing palpitations specially when she is going up stairs. She also gets some shortness of breath. No chest discomfort. She is saying that she get these symptoms approximately 2 to 3 times a week. Today she climbed up couple of flights of stairs to reach the office and had pal pitations. Blood pressure control is good. She has known history hypertension is currently taking lisinopril and hydrochlorothiazide combination. She has not had any TSH testing in the last couple of years. has dementia and also underwent bypass surgery and she is under lot of stress too. 06/25/23: She returns for f/u. She is saying that she feels fatigued after taking metoprolol. She also has iron deficiency anemia and is getting iron infusions and following with Hematology. Continues to get some palpitations off and on. No chest discomfort shortness of breath. 05/05/2024: She is here for follow-up. She is doing well. No chest pains or shortness of breath. Denying palpitations and follow-up. Blood pressure is well controlled. Her last LDL cholesterol was 119 in 04/08/2023, total cholesterol 181, triglyceride 98 and HDL 43. I have advised her to repeat a fasting lipid panel. Being a diabetic she should be on statin therapy-based on her LDL levels we will start her on appropriate dose. [facility] Medical History (Updated 05/05/24 @ 11:35 by Salo Delgado MD) Abscess of appendix Trochanteric bursitis, left hip Trochanteric bursitis, right hip Osteoarthritis involving multiple joints on both sides of body Hair loss Fibromyalgia Lumbar spondylosis Surgical History Hx of carpal tunnel repair Hx of cholecystectomy History of lumpectomy of left breast Family History Mother HTN (hypertension) Brother Prostate cancer Daughter Diabetes Asthma HTN (hypertension) Social History Household Members: Spouse and Children Housing: House Are you a primary caretaker to a significant other at home: No Do you presently have visiting nurse or other home services: No Alcohol intake: never Patient Tobacco Use Status: Never used Tobacco service: No Current occupational status: disabled Review of Systems Const Denies chills, Denies fatigue, Denies fever(s), Denies frequent falls, Denies weakness, Denies weight gain and Denies weight loss ENT Denies dizziness Card Denies chest pain, Denies leg edema, Denies lightheadedness, Denies palpitations, Denies dyspnea and Denies dyspnea on exertion Resp Denies cough, Denies dyspnea and Denies dyspnea on exertion GI Denies hematochezia Musc Denies abnormal gait, Denies muscle weakness, Denies numbness, Denies radiating pain into limb and Denies tingling Neuro Denies abnormal gait, Denies dizziness, Denies frequent falls, Denies numbness, Denies tingling and Denies weakness Endo Denies fatigue and Denies palpitations Physical Exam Vital Signs: Last Vital Signs Pulse 69 05/05/24 11:10 BP 124/62 05/05/24 11:10 BMI result Body Mass Index 32.8 GENERAL APPEARANCE: in no acute distress, pleasant. NECK: no carotid bruit, no jugular venous distention. SKIN: no suspicious lesions, warm and dry. HEART: no murmurs, regular rate and rhythm. LUNGS: clear to auscultation bilaterally. ABDOMEN: soft, nontender. EXTREMITIES: no edema. PERIPHERAL PULSES: equal. NEUROLOGIC: No gross deficits, AAO X 3 Office Procedures EKG Details: Sinus rhythm 69 beats per minute, left axis deviation, left ventricular hypertrophy with secondary T-wave changes, QTC 473 milliseconds. [id number], Complete Assessment & Plan Assessment & Plan (1) Essential hypertension: Code(s): I10 - Essential (primary) hypertension Category: Medical (2) Hyperlipidemia: Code(s): E78.5 - Hyperlipidemia, unspecified Category: Medical Plan Pleasant 63 year female who is here for follow-up. She has background history of hypertension and palpitations. She was anemic and with improvement in anemia palpitations have improved. No chest discomfort. Blood pressure is well controlled. Her LDL cholesterol was 119 in 04/08/2023. She is currently not on statin therapy. I have advised her to repeat lipid panel and based on that we will start her on statin therapy. As she does the blood workup we will start her on medication. If she does not do the blood workup and is seen in the primary care physician office in the meantime then she should be started on statins and I think she should be started on at least atorvastatin 40 mg daily. Thank you for allowing me to participate in the care of your patient. Please feel free to contact me if you have any questions. Orders: Orders Lipid Panel Today E78.5 - Hyperlipidemia, unspecified Coding Level of Care Code Est Pt Level 4 (77278) Diagnoses Essential hypertension I10 Hyperlipidemia E78.5 CPT Codes EKG - CPT: 85584-[id number], Complete ([id number])
== END 2024-05-05 11:36 | disposition home or self-care (01) ==
PROVIDERS: PCP General Practice; Visit Provider Internal Medicine Cardiovascular Disease
DX: I10 Essential (primary) hypertension (principal); E78.5 Hyperlipidemia, unspecified
CPT/HCPCS: 93010; 99214

== ENCOUNTER → 2024-05-05 10:57 | Outpatient (BNVA) | payer OTHER, SELFPAY | PROVIDERS: PCP General Practice; Visit Provider Internal Medicine Cardiovascular Disease | DX: I10 Essential (primary) hypertension (principal); E78.5 Hyperlipidemia, unspecified | CPT/HCPCS: 93005; 99212 ==

== ENCOUNTER 2024-05-06 12:03 | Outpatient (REF) | payer OTHER, SELFPAY ==
[2024-05-06 13:05] LABS: Alanine Aminotransferase 18 U/L (0-31); Albumin Level 4.3 g/dL (3.5-5.0); Alkaline Phosphatase 74 U/L (39-117); Anion Gap 11 (12-20); Aspartate Amino Transferase 17 U/L (5-31); Bilirubin Total 0.5 mg/dL (0.0-1.0); Blood Urea Nitrogen 10 mg/dL (9-16); Calcium 10.3 mg/dL (8.4-10.2); Carbon Dioxide 29 mmol/L (22-29); Chloride 104 mmol/L (96-108); Estimated Glomerular Filt Rate 58; Glucose Random 117 mg/dL (60-115); Potassium 3.9 mmol/L (3.3-5.1); Sodium 140 mmol/L (135-145); Total Protein 7.8 g/dL (6.5-8.0)
[2024-05-06 13:17] LABS: Erythrocyte Sedimentation Rate 25 MM/HR (0-20)
== END 2024-05-06 12:04 | disposition home or self-care (01) ==
LOC: HO.LAB 12:03
PROVIDERS: Nurse Practitioner Family; PCP General Practice; Visit Provider Internal Medicine Cardiovascular Disease
DX: E11.9 Type 2 diabetes mellitus without complications (principal); M15.9 Polyosteoarthritis, unspecified
CPT/HCPCS: 36415; 80053; 85652; 86140

== ENCOUNTER 2024-06-25 11:15 | Outpatient (AMB) | payer OTHER, SELFPAY ==
--- NOTE | 2024-06-25 11:33 | A.OFFVIS_ITS ---
Vital Signs 06/25/24 11:38 Height 5 ft 3 in Weight 189 lb 2.506 oz BMI 33.5 BP 124/62 Blood Pressure Location Rt brachial Position Sitting Pulse 62 Pulse Source Pulse Oximeter Pulse Oximetry (%) 95 Oxygen Delivery Method Room Air Intake Visit Reasons: FM/lm Intake Note: Patient presents for FM. Import Coordination And Production Head Required: Yes Import Coordination And Production Head Language: Forestry Laborer Services: Import Coordination And Production Head Present Import Coordination And Production Head Name: Son Welsh Information Interpreted: non-clinical & clinical Allergies aspirin [ASA] Allergy (Intermediate, Verified 06/25/24 11:37) Rash doxycycline [DOXYCYCLINE] Allergy (Intermediate, Verified 06/25/24 11:37) CHEST PAIN, RASH Medication List - Last Reconciled 06/25/24 by Jude Bearden MD ascorbic acid (vitamin C) (Vitamin C) 1 tab PO DAILY cholecalciferol (vitamin D3) (Vitamin D3) 1 cap PO DAILY ferrous sulfate 1 tab PO BID ibuprofen 800 mg PO BID PRN lisinopril-hydrochlorothiazide 20-25 mg 1 tab PO DAILY metformin ER 500 mg PO DAILY metoprolol succinate ER (Toprol XL) 25 mg PO DAILY omeprazole 20 mg PO DAILY HPI Comments Details: 63-year-old female with fibromyalgia returns for follow-up. She states that for the last 3 weeks she has been having pain in the back of her right foot. Worse in the morning or in the middle of the night. She states that she has been more active recently going up and down the stairs. She was taking care of a sick family member. She was evaluated [facility] and advised to put her foot in warm water. It has not help much. She also takes ibuprofen 800 mg when needed with little improvement. [facility] Medical History Abscess of appendix Trochanteric bursitis, left hip Trochanteric bursitis, right hip Osteoarthritis involving multiple joints on both sides of body Hair loss Fibromyalgia Lumbar spondylosis Surgical History Hx of carpal tunnel repair Hx of cholecystectomy History of lumpectomy of left breast Family History Mother HTN (hypertension) Brother Prostate cancer Daughter Diabetes Asthma HTN (hypertension) Social History Household Members: Spouse and Children Housing: House Are you a primary rn care manager to a significant other at home: No Do you presently have visiting nurse or other home services: No Alcohol intake: never Patient Tobacco Use Status: Never used Tobacco service: No Current occupational status: disabled Review of Systems [facility] Reports arthralgias and Reports stiffness Physical Exam Vital Signs: Last Vital Signs Pulse 62 06/25/24 11:38 BP 124/62 06/25/24 11:38 Pulse Ox 95 06/25/24 11:38 Oxygen Delivery Method Room Air 06/25/24 11:38 BMI result Body Mass Index 33.5 Const General: cooperative, healthy appearing and comfortable Nutritional Appearance: obese Orientation/consciousness: patient oriented x3 Limitations: no limitations HEENT Head: Yes normocephalic and Yes atraumatic Mouth: moist mucous membranes Resp Effort & Inspection: normal respiratory effort and able to speak in complete sentences Skin General skin exam: no rashes or lesions noted Neuro General: patient oriented x3 Extrem Other: Mild osteoarthritic changes of both hands with no active synovitis Few fibromyalgia tender points Tenderness upon squeezing the back of her right foot. Assessment & Plan Assessment & Plan (1) Plantar fasciitis, right: Code(s): M72.2 - Plantar fascial fibromatosis Category: Medical Plan: 63-year-old female with fibromyalgia presents for evaluation of right heel pain. Ongoing for the last 3 weeks, in the context of increased activity. I think this is likely plantar fasciitis. I provided patient with a printout of home exercises. Referred patient to Podiatry. Follow-up with rheumatology as needed Plan I spent 15 minutes reviewing patient's chart, evaluating patient, placing orders, counseling patient and documenting in the chart Orders: Referrals Podiatry Referral M72.2 - Plantar fascial fibromatosis Medications: Discontinued ibuprofen Discontinued Reason: Doctor's Order 800 mg PO BID PRN 180 tabs 0RF pain M79.7 - Fibromyalgia Coding Level of Care Code Est Pt Level 3 (21098) Diagnoses Plantar fasciitis, right M72.2
[2024-06-25 11:38] VITALS: BP 124/62; PULSE 62; O2SAT 95; BMI 33.5
== END 2024-06-25 12:05 | disposition home or self-care (01) ==
LOC: HO.RHE 11:16
PROVIDERS: PCP General Practice; Visit Provider Student in an Organized Health Care Education/Training Program
DX: M72.2 Plantar fascial fibromatosis (principal)
CPT/HCPCS: 99213

== ENCOUNTER → 2024-06-25 11:15 | Outpatient (BNVA) | payer OTHER, SELFPAY | PROVIDERS: PCP General Practice; Visit Provider Student in an Organized Health Care Education/Training Program | DX: M72.2 Plantar fascial fibromatosis (principal); M79.7 Fibromyalgia | CPT/HCPCS: 99212 ==

== ENCOUNTER 2024-09-19 12:19 | Outpatient (REF) | payer OTHER, SELFPAY ==
--- NOTE | ~2024-09-19 | XR_ITS ---
EXAMINATION: XR SHOULDER, LEFT CLINICAL INFORMATION: pain COMPARISON: No priors TECHNIQUE: AP external rotation, Grashey, scapular Y, and axillary views of the left shoulder. FINDINGS: No acute cortical disruption or malalignment. No lytic or blastic lesions. Subchondral cyst formation in the greater tuberosity of the left humerus. XR/XR shoulder LT min 2V IMPRESSION: Mild osteoarthrosis, greater tuberosity left humerus. Electronically signed by: Tam Campo MD 09/19/2024 01:09 PM ELBERT OSEI
--- OUTSIDE RECORDS SUMMARY | 2024-09-19 12:47 | XMS_ITS | Encounter Summary ---
Author Organization [employer] [facility] Address [address] [place] [address] [address] [place] [address] Care Team Providers Care Cabinet Mounter Name Role Phone Rubi Weston MD Primary Care Provider [phone] Reason for Visit * Reason Onset Date Comments Appointment Request 03/05/2024 Encounter Details Date Type Department Care Team ([facility] st Contact Info) Description 03/05/2024 Telephone [facility] MEDICINE [address] [place] [address] Rubi Weston MD [address] [place], [place] [phone] Appointment Request Social History Tobacco Use Types Packs/Day Years Used Date Smoking Tobacco: Never Passive Smoke Exposure: Never Smokeless Tobacco: Never Alcohol Use Standard Drinks/Week Comments Never 0 (1 standard drink = 0.6 oz pur e alcohol) Housing Stability Answer Date Recorded What is your housing situation today? I have elaine turner 06/09/[address] you li ve. Do you have problems with any of the following? None of the above 06/09/2023 Food Insecurity Answer Date Recorded Within the past 12 months, y ou worried that your food would run out before you got money to buy more: Never True 06/09/2023 Within the past 12 months,th e food you bought just didn't last and you didn't have enough money to get more: Never True Transportation Answer Date Recorded In the past 12 months, has l ack of transportation kept you from medical appts, meetings, work or from getting things needed for daily living? No 01/18/2024 Utilities Answer Date Recorded In the past 12 months, has t he electric, gas, oil or water [employer] threatened to shut off services in your home? No 06/09/2023 Depression Answer Date Recorded Patient Health Questionnaire-2 Score 0 04/11/2023 Comments Unknown Sex and Gender Information Value Date Recorded Sex Assigned at Female 06/19/2022 10:14 AM EDT Legal Sex Female 10:14 AM EDT Gender Identity Female 06/19/2022 10:14 AM EDT Sexual Orientation Straight 06/19/2022 10 :14 AM EDT documented as of this encounter Miscellaneous Notes * Telephone Encounter - Hiren Sulaiman - 03/05/2024 2:32 PM EDT Tc from pt calling in regards to 01/27 appt stated pcp advised pt to follow up in a month but pt stated she has not received a call or appt notice. Please contact pt at [phone]. documented in this encounter Plan of Treatment Not on file documented as of this encounter Visit Diagnoses Not on filedocumented in this encounter Care Teams Cabinet Mounter Relationship Specialty Start Date End Date Rubi Weston MD [address] [place] [id number] PCP - General Family Medicine 09/28/20 documented as of this encounter
--- OUTSIDE RECORDS SUMMARY | 2024-09-19 12:47 | XMS_ITS | Encounter Summary ---
Author Organization [employer] [facility] Address [address] [place] [address] [address] [place] [address] Care Team Providers Care Professional Skater Name Role Phone Rubi Weston MD Primary Care Provider [phone] Reason for Visit * Reason Onset Date Comments chart prep 09/18/2024 Encounter Details Date Type Department Care Team ([facility] st Contact Info) Description 09/18/[address] [facility] MEDICINE [address] [place] [address] Rubi Weston MD [address] [place], [place] [phone] chart prep Social History Tobacco Use Types Packs/Day Years [...] t he electric, gas, oil or water [employer] threatened to shut off services in your [...] encounter Miscellaneous Notes * Telephone Encounter - Yola Duong [place] - 09/18/2024 12:57 PM EST Chart Prep Labs: not applicable Images: not applicable Vaccines due: yes Referrals: pending appt ( dr post/) Screenings: eye exam Overdue care gaps: A1C, Glucose, PHQ-9, Oral Health documented in this encounter Plan of Treatment Not on file documented as of this encounter Visit Diagnoses Not on filedocumented in this encounter Care Teams Professional Skater Relationship Specialty Start Date End Date Rubi Weston MD [address] [place] [address] PCP - General Family Medicine 09/28/20 documented as of this encounter
--- OUTSIDE RECORDS SUMMARY | 2024-09-19 12:47 | XMS_ITS | Encounter Summary ---
Author Organization [facility] Address [address] [facility] [place] [address] [place] [address] Care Team Providers Care Cashier Host/Hostess Name Role Phone Rubi Weston MD Primary Care Provider [phone] Encounter Details Date Type Department Care Team (Latest Contact Info) Description 09/19/2024 Travel Social History Tobacco Use Types Packs/Day Years Used Date Smoking Tobacco: Never Passive Smoke Exposure: Never Smokeless Tobacco: Never Alcohol Use Standard Drinks/Week Comments Never 0 (1 standard drink = 0.6 oz pur e alcohol) Housing Stability Answer Date Recorded What is your housing situation today? I have elainebrandee turner 06/09/[address] you [...] t he electric, gas, oil or water company threatened to shut off services in your home? No 06/09/2023 Depression Answer Date Recorded Patient Health Questionnaire-2 Score 0 04/11/2023 Comments Unknown Sex and Gender Information Value Date Recorded Sex Assigned at Female 06/19/2022 10:14 AM EDT Legal Sex Female 10:14 AM EDT Gender Identity Female 06/19/2022 10:14 AM EDT Sexual Orientation Straight 06/19/2022 10 :14 AM EDT documented as of this encounter Plan of Treatment Not on file documented as of this encounter Visit Diagnoses Not on filedocumented in this encounter Care Teams Cashier Host/Hostess Relationship Specialty Start Date End Date Rubi Weston MD [address] [place] [address] PCP - General Family Medicine 09/28/20 documented as of this encounter
--- OUTSIDE RECORDS SUMMARY | 2024-09-19 12:47 | XMS_ITS | Clinical Summary ---
Author Organization [employer] Address [address] [place] [address] [address] [place] [address] Care Team Providers Care Field Service Manager Name Role Phone Rubi Weston MD Primary Care Provider [phone] Allergies Active Allergy Reactions Criticality Noted Date Comments Aspirin Rash Low 08/30/2010 Doxycycline 08/30/2010 Other reaction(s): nausea: vomiting, migraine Medications lidocaine (Lidoderm) 5 % patchIndicati ons:Fibromyos itis Apply 1 patch topically in the morning. 30 patch 1 08/16/20 22 Active Blood Glucose Monitoring Suppl (FreeStyle [place] Lite) w/Device kit Use to test blood sugar bid dx dm 1 kit 04/25/20 23 Active Sharps Container (Sharps Sod Cutter) misc 1 Units if needed in the morning and at bedtime (sharps). Dispose used sharps in container. 1 each 3 04/25/20 23 Active clotrimazole (Lotrimin) 1 % cream APPLY CREAM TOPICALLY TWICE DAILY 12/04/19 24 Active metFORMIN XR (Glucophage-X R) 500 MG 24 hr tablet Take 1 tablet (500 mg) by mouth with evening meal. Do not crush, chew, or split. 90 tablet 3 01/28/20 24 025 Active Additional Information Patient taking differently:500 mg OralDaily PRN, Do not crush, chew, or split. , Reported on 04/01/2024 fish oil ([place]-3) 500 MG capsule Take 1 capsule (500 mg) by mouth Once per day. 90 capsule 3 03/26/20 24 Active lisinopril-hy droCHLOROthia zide 20-25 MG tablet Take 1 tablet by mouth Once per day. 90 tablet 3 03/26/20 24 Active metoprolol succinate XL (Toprol-XL) 25 MG 24 hr tablet Take 1 tablet (25 mg) by mouth Once per day. 90 tablet 3 03/26/20 24 Active cholecalcifer ol VITAMIN D (Vitamin D-3) 50 MCG (1999 UT) capsule Take 1 capsule (50 mcg) by mouth Once per day. 90 capsule 3 03/26/20 24 Active urea (Carmol) 10 % creamIndicati ons:Type 2 diabetes mellitus without complication, without long-term current use of insulin ([facility]) Apply topically if needed for dry skin (feet and hands). 453 g 2 03/26/20 24 025 Active cyclobenzapri ne (Flexeril) 5 MG tablet Take 5 mg by mouth if needed each day for muscle spasms. Active Alcohol Swabs (Alcohol Pads) 70 % pads Use as directed on skin 100 each 04/01/20 Active FreeStyle lancets 1 each by Other route 2 times daily. Use bid, dx type 2 diabetes 60 each 04/01/20 24 Active glucose blood (FREESTYLE LITE) test strip Use bid. Dx diabetes 60 each 04/01/20 24 Active ferrous sulfate 325 (65 Fe) MG EC tablet TAKE 1 TABLET BY MOUTH ONCE DAILY BREAKFAST. DO NOT CRUSH, CHEW OR SPLIT. 90 tablet 1 08/12/20 24 Active Ascorbic Acid (vitamin C) 500 MG tablet TAKE 1 TABLET BY MOUTH ONCE DAILY WITH IRON 90 tablet 1 08/12/20 24 Active ibuprofen 800 MG tablet Take 1 tablet (800 mg) by mouth if needed in the morning and at bedtime for moderate pain. 60 tablet 3 09/19/19 25 Active ibuprofen 800 MG tablet Take 800 mg by mouth if needed in the morning and at bedtime. 11/20/19 24 025 Discontinued(Re order (will not trigger notification to Pharmacy)) Active Problems Problem Noted Date Diagnosed Date History of laparoscopic appendectomy 03/21/2024 Assessment & Plan (03/26/2024 11:05 AM EDT): Healing well Red flags discussed for return to ER Vaginal itching 09/24/2023 Palpitation 04/25/2023 Assessment & Plan (09/26/2023 12:19 PM EST): Continue f/u with cardiology On Bblocker low dose, which is helping Assessment & Plan (04/25/2023 3:03 PM EDT): Normal exam today. Wearing holtor monitor Continue new metorpolol XL from cardiology. Type 2 diabetes mellitus wit hout complication, without long-term current use of insulin 04/25/2023 Assessment & Plan (03/26/2024 11:04 AM EDT): Continue Metformin 500mg XR daily Current A1c: 5.6 BMP: Lab Results Component Value Date CREATININE 1.01 04/12/2023 EGFR 56 04/12/2023 Microalbumin: today Foot Exam: normal today except for dry skin Eye Exam: Due next year Lipid panel: ASCVD: The 10-year ASCVD risk score (Ishan MENDEZ, et al., 2019) is: 10.4% Values used to calculate the score: Age: 63 years Sex: Female Is Non- : No Diabetic: Yes Tobacco smoker: No Systolic Blood Pressure: 124 mmHg Is BP treated: Yes HDL Cholesterol: 43 mg/dL Total Cholesterol: 181 mg/dL Statin: No, declines due to risk of dementia. Will take fish oil ASA: No MALLORY/ARB: Yes Encouraged regular aerobic exercise for improved glycemic control Encouraged daily foot checks Encouraged lean protein snacks and to avoid foods high in sugar and simple carbohydrates Treatment Goals: A1c goal: <7% FBG goal: <130 2 hour post prandial goal: <180 Assessment & Plan (01/28/2024 8:26 AM EDT): Continue Metformin 500mg XR daily Current A1c: 5. BMP: Microalbumin: Foot Exam: Complete at follow up Eye Exam: Due next year Lipid panel: ASCVD: Calculate pending updated labs Statin: No ASA: No MALLORY/ARB: Yes Encouraged regular aerobic exercise for improved glycemic control Encouraged daily foot checks Encouraged lean protein snacks and to avoid foods high in sugar and simple carbohydrates Treatment Goals: A1c goal: <7% FBG goal: <130 2 hour post prandial goal: <180 Assessment & Plan (09/26/2023 12:18 PM EST): Continue Metformin 500mg XR daily Current A1c: 5. BMP: Microalbumin: Foot Exam: Complete at follow up Eye Exam: Due next year Lipid panel: ASCVD: Calculate pending updated labs Statin: No ASA: No MALLORY/ARB: Yes Encouraged regular aerobic exercise for improved glycemic control Encouraged daily foot checks Encouraged lean protein snacks and to avoid foods high in sugar and simple carbohydrates Treatment Goals: A1c goal: <7% FBG goal: <130 2 hour post prandial goal: <180 Assessment & Plan (05/22/2023 1:40 PM EDT): Continue Metformin 500mg XR daily Current A1c: 5.9 BMP: Microalbumin: Foot Exam: Complete at follow up Eye Exam: Due next year Lipid panel: ASCVD: Calculate pending updated labs Statin: No ASA: No MALLORY/ARB: Yes Encouraged regular aerobic exercise for improved glycemic control Encouraged daily foot checks Encouraged lean protein snacks and to avoid foods high in sugar and simple carbohydrates Treatment Goals: A1c goal: <7% FBG goal: <130 2 hour post prandial goal: <180 Assessment & Plan (04/25/2023 3:25 PM EDT): Dx 04/25/2023 based on A1c of 6.9% and symptimatic home blood sugar of 300. -Will start Metformin ER 500mg daily. -Diabetic supplies given. -Will follow up with PCP. -We reveiwed what normal fasting and post prandial blood sugars are. -Dietary counciling given. -Pt will discuss with pharmacy how to use glucose monitor. Atypical lobular hyperplasia of breast 2 Primary osteoarthritis of left hip 01/02/2019 Assessment & Plan (01/28/2024 8:25 AM EDT): Trial Duloxetine 20mg to see if this helps her pain On daily Tylenol Muscle relaxer use prn Assessment & Plan (09/26/2023 12:19 PM EST): Trial Duloxetine 20mg to see if this helps her pain On daily Tylenol Muscle relaxer use prn Assessment & Plan (04/13/2023 8:16 AM EDT): Lidocaine patches Abscess of buttock 01/15/2018 Essential hypertension 07/27/2015 Assessment & Plan (03/26/2024 11:03 AM EDT): Maintenance: Lisinopril/HCTZ 20/25 BMP: eGFR 59 (03/2023) Lipid Panel: Lab Results Component Value Date LDLCHOL 103 (H) 03/30/2022 ASCVD Risk: Calculate pending updated labs EKG: Obtain baseline at f/u - Aerobic exercise to reduce BP. Initial goal of 30 min walk 3-5x/week. Increase as tolerated. - low-sodium diet (goal: <2g/day) and heart healthy diet such as DASH to reduce BP and prevent ASCVD. - Home BP monitoring 1-2 x day with goal of <140/90. - Seek immediate medical attention for chest pain, palpitations, SOB, syncope, or sudden changes in mental status. - Do not change or discontinue current prescriptions without first consulting health care provider Assessment & Plan (01/28/2024 8:25 AM EDT): Maintenance: Lisinopril/HCTZ 20/25 BMP: eGFR 59 (03/2023) Lipid Panel: Lab Results Component Value Date LDLCHOL 103 (H) 03/30/2022 ASCVD Risk: Calculate pending updated labs EKG: Obtain baseline at f/u - Aerobic exercise to reduce BP. Initial goal of 30 min walk 3-5x/week. Increase as tolerated. - low-sodium diet (goal: <2g/day) and heart healthy diet such as DASH to reduce BP and prevent ASCVD. - Home BP monitoring 1-2 x day with goal of <140/90. - Seek immediate medical attention for chest pain, palpitations, SOB, syncope, or sudden changes in mental status. - Do not change or discontinue current prescriptions without first consulting health care provider Assessment & Plan (09/26/2023 12:18 PM EST): Maintenance: Lisinopril/HCTZ 20/25 BMP: eGFR 59 (03/2023) Lipid Panel: Lab Results Component Value Date LDLCHOL 103 (H) 03/30/2022 ASCVD Risk: Calculate pending updated labs EKG: Obtain baseline at f/u - Aerobic exercise to reduce BP. Initial goal of 30 min walk 3-5x/week. Increase as tolerated. - low-sodium diet (goal: <2g/day) and heart healthy diet such as DASH to reduce BP and prevent ASCVD. - Home BP monitoring 1-2 x day with goal of <140/90. - Seek immediate medical attention for chest pain, palpitations, SOB, syncope, or sudden changes in mental status. - Do not change or discontinue current prescriptions without first consulting health care provider Assessment & Plan (04/13/2023 8:16 AM EDT): Maintenance: Amlodipine 2.5mg, Lisinopril/HCTZ 20/25 BMP: due Lipid Panel: due ASCVD Risk: Calculate pending updated labs EKG: Obtain baseline at f/u - Aerobic exercise to reduce BP. Initial goal of 30 min walk 3-5x/week. Increase as tolerated. - low-sodium diet (goal: <2g/day) and heart healthy diet such as DASH to reduce BP and prevent ASCVD. - Home BP monitoring 1-2 x day with goal of <140/90. - Seek immediate medical attention for chest pain, palpitations, SOB, syncope, or sudden changes in mental status. - Do not change or discontinue current prescriptions without first consulting health care provider Fibromyalgia 07/27/2015 Assessment & Plan (01/28/2024 8:25 AM EDT): [facility] & Plan (04/13/2023 8:15 AM EDT): Flexeril refills ordered Iron deficiency anemia 07/27/2015 Assessment & Plan (01/28/2024 8:27 AM EDT): On periodic ferrous sulfate Lab Results Component Value Date HGB 11.1 (L) 04/12/2023 HGB 10.8 (L) 11/17/2022 HGB 10.9 (L) 03/30/2022 HGB 10.2 (L) 02/16/2021 HGB 10.1 (L) 02/11/2021 HGB 10.8 (L) 09/30/2020 Obesity 07/27/2015 Encounters Date Type Department Care Team Description 09/19/2024 11:30 AM EST Office Visit [facility] [address] [place] [id number] Rubi Weston MD Other iron deficiency anemia (Primary Dx); Type 2 diabetes mellitus without complication, without long-term current use of insulin ([facility]); Acute pain of left shoulder 09/19/2024 Travel 09/18/2024 Telephone [facility] [address] [place] [id number] Rubi Weston MD chart prep 08/11/[address] [phone] Rubi Weston MD 08/11/[address] [phone] Martha Clement MA rs appt 08/11/[address] [phone] Ruth Williamson MA Provider Out 07/31/2024 Patient Outreach [address] [phone] Rubi Weston MD Pre-visit Planning ([facility] screening completed on 01/18/2024) from Last 3 Months Immunizations Name Administration Dates Next Due Hep B, adult 11/16/2009,10/22/2007,02/28/2007 Influenza injectable quadriv alent IIV4 with preservative 05/17/2017,10/24/2016,07/27/2015 Influenza injectable quadriv alent preservative free 05/21/2023,05/27/2019,10/03/2018,10/13 Influenza, IIV3, injectable 07/28/2005, 1,06/06/1999 Influenza, Split (incl. raysa fied surface antigen) 06/05/2013,05/13/2012 Pneumococcal Polysaccharide PPSV23 07/05/2001 TD (adult), 2 Lf tetanus tox oid, preservative free, adsorbed 08/20/1988 Tdap 03/12/2012 Social History Tobacco Use Types Packs/Day Years Used Date Smoking Tobacco: Never Passive Smoke Exposure: Never Smokeless Tobacco: Never Tobacco Cessation:Counseling Given: Not Answered Alcohol Use Standard Drinks/Week Comments Never 0 [...] Orientation Straight 06/19/2022 10 :14 AM EDT Last Filed Vital Signs Vital Sign Reading Time Taken Comments Blood Pressure 142/69 09/19/2024 11:47 AM EST Pulse 89 09/19/2024 11:47 AM EST Temperature 36.2 ??C (97.2 ??F) 09/19/2024 1 1:47 AM EST Respiratory Rate 16 09/19/2024 11:4 7 AM EST Oxygen Saturation 98% 09/19/2024 11: 47 AM EST Inhaled Oxygen Concentration - - Weight 85.6 kg (188 lb 12.8 oz) 025 11:47 AM EST Height 160 cm (5' 3 ) 09/19/2024 11:47 AM EST Body Mass Index 33.44 09/19/2024 11:47 AM EST Plan of Treatment Health Maintenance Due Date Last Done Comments CT Colonography 1960 Colonoscopy 1961 FIT 1961 FOBT 1960 Sigmoidoscopy 1960 Eye Exam 1971 Alcohol/Substance Use Screening 1973 Pneumococcal Vaccine: 50+ Years (2 of 2 - PCV) 07/05/2002 07/05/2001 Zoster Vaccines (1 of 2) 2011 DTaP/Tdap/Td Vaccines (2 - Td or Tdap) 03/12/2022 03/12/2012, 08/20/1988 Depression Screening 04/11/2024 04/11/2023, 04/11/20 23 Lipid Panel 04/12/2024 04/12/2023, 03/20, 09/30/2020 COVID-19 Vaccine ( season) 2024 Influenza Vaccine (#1) 2024 , 05/27/2019, 10/03/2018, Additional history exists Diagnostic Breast Imaging 10/21/2024 04/23/2024, 11/2023 SDOH Screening 01/17/2025 01/18/2024 Diabetes: Hemoglobin A1C 03/19/2025 025, 03/26/2024, 01/28/2024, Additional history exists Diabetes: Urine Protein Screening 03/26/2025 03/26/2024, 09/30/2020 Colorectal Cancer Screening 04/11/2025 FIT DNA/Cologuard 04/11/2025 04/11/2022 Diabetes: Foot Exam 05/28/2025 05/28/2024, 05/28/2024, 05/28/2024, Additional history exists Tobacco Screening 09/19/2025 09/19/2024 Cervical Cancer Screening 11/12/2025 HPV/Cotest 11/12/2025 11/12/2020 Pap Smear 11/12/2025 11/12/2020 RSV Patients and Patients Aged 60 years or older (1 - 1-dose 75+ series) 2036 Hepatitis B Vaccines Completed 11/16/2009, 10/22/2007, 02/28/2007 HIV Screening Completed 03/26/2024 Hepatitis C Screening Completed 03/26/2024 HIB Vaccines Aged Out No longer eligi ble based on patient's age to complete this topic HPV Vaccines Aged Out No longer eligi ble based on patient's age to complete this topic Hepatitis A Vaccines Aged Out No long er eligible based on patient's age to complete this topic IPV Vaccines Aged Out No longer eligi ble based on patient's age to complete this topic Meningococcal Vaccine Aged Out No sherri jose eligible based on patient's age to complete this topic RSV under 20 months Aged Out No longe r eligible based on patient's age to complete this topic Rotavirus Vaccines Aged Out No longer eligible based on patient's age to complete this topic Procedures Procedure Name Priority Date/Time Associated Diagnosis Comments POCT GLYCATED HEMOGLOBIN, TOTAL Routine 09/19/2024 11:48 AM EST Type 2 diabetes mellitus without complication, without long-term current use of insulin (CMS/HCC) POCT GLUCOSE Routine 09/19/2024 11:48 AM EST Type 2 diabetes mellitus without complication, without long-term current use of insulin (CMS/HCC) BI MAMMOGRAM ADDITIONAL VIEWS RIGHT Routine 04/23/2024 2:45 PM EDT HEPATITIS C AB W/REFL TO HCV RNA, QN, PCR Routine 03/26/2024 11:05 AM EDT Type 2 diabetes mellitus without complication, without long-term current use of insulin (CMS/HCC) HIV 1/2 ANTIGEN/ANTIBODY, FOURTH GENERATION W/RFL Routine 03/26/2024 11:05 AM EDT Type 2 diabetes mellitus without complication, without long-term current use of insulin (CMS/HCC) ALBUMIN, RANDOM URINE W/CREATININE Routine 03/26/2024 11:05 AM EDT Type 2 diabetes mellitus without complication, without long-term current use of insulin (CMS/HCC) LIPID PANEL, STANDARD Routine 04/12/2023 2:03 PM EDT Essential hypertension HPV MRNA E6/E7 Routine 11/12/2020 3:01 PM EDT THINPREP PAP Routine 11/12/2020 3:01 PM EDT from Last 3 Months or Most Recently Relevant to Health Maintenance Results * POCT HGB A1C (09/19/2024 11:48 AM EST) Hemoglobin A1C 5.8 4.0 - 6.0 % QC Media Lot # [id number] Lot# Expiration Date , Blood 09/19/2024 11:4 8 AM EST us Rubi Weston MD POINT OF CARE TEST ENTER/EDIT ORDERABLES Final Result * POCT Glucose (09/19/2024 11:48 AM EST) Glucose Blood, POC 127 60 - 200 mg/dL QC Media Lot # [id number] Lot# Expiration Date 172,025 Blood Capillary blood specimen / Unknown 09/19/2024 11:48 AM EST us Rubi Weston MD POINT OF CARE TEST ENTER/EDIT ORDERABLES Final Result * BI Mammogram Additional Views Right (04/23/2024 2:45 PM EDT) Anatomical Region Laterality Modality Breast Right Mammography 04/23/2024 2:45 PM EDT Narrative 04/23/2024 4:06 PM EDT ? [facility] [place] ? [address] [facility] ?[place] [address] ? Mammography Report ? Signed ? Patient: Colon,Lakshmi ?MR#: [id number] ? : 1960 ?Acct:[id number] ? Age/Sex: 63 / F ?ADM Date: 09/04/24 ? Loc: HO.MAMMO ? Attending Dr: Rubi Weston MD ? Ordering Physician: Rubi Weston ?Results: 3.6MProba ?? yuriy Benign Finding - Short 6 M F/U Suggested ? Date of Service: 04/23/24 ?Follow Up: 6 Month F/U ? Procedure(s): MM added views RT ?? Accession Number(s): [id number] ? cc: Rubi Weston ? EXAMINATION: ?? MM DIAGNOSTIC DIGITAL BREAST TOMOSYNTHESIS, RIGHT ?? US BREAST LIMITED, RIGHT ? MAMMOGRAPHY: ?? CLINICAL INFORMATION: ? Diagnostic, for follow-up grouped calcifications upper outer right ?? breast mid to posterior one third with underlying 8mm masslike density. ? COMPARISON: ?? Mammography: 02/18/2024 screening, 11/12/2018, 10/24/2017, and 11/04/2014. ? TECHNIQUE: ?? Digital breast tomosynthesis is performed in the following views: 2-D ?? magnification right CC use x2 and right ML view x1. ? FINDINGS: ?? There are scattered areas of fibroglandular density (ACR BI-RADS breast ?? composition Category b). ? Calcifications in the upper outer right breast approximately 10:00 ?? axis, mid to posterior one third, are loosely grouped, coarse in ?? appearance, without significant pleomorphism. There are no branching, ?? casting, or linear forms. These conform to an underlying mass like ?? density, most suggestive of a degenerating fibroadenoma. This will be ?? evaluated with ultrasound. These calcifications are probably benign. ? There are at least 3 additional oval circumscribed masses, some with ?? similar type dystrophic calcifications, and 2 which have been ?? previously biopsied in the upper outer 11:00 axis, yielding benign ?? fibroadenomas. ? ULTRASOUND: ?? CLINICAL INFORMATION: ?? As above. ? COMPARISON: ?? None relevant. ? TECHNIQUE: ?? Targeted sonographic evaluation was performed using a high frequency ?? linear transducer. ??Attention was given to the upper outer quadrant of ?? the right breast to include the area of concern. Selected archived ?? documentation. ? FINDINGS: ? RIGHT BREAST: ? Within the 11:00 axis right breast, there are 2 immediately adjacent ?? abutting circumscribed oval hypoechoic masses with good through ?? transmission, with visible biopsy clips abutting the inferior margins, ?? consistent with the known biopsied fibroadenomas. The larger measures ?? 1.1 x 0.4 cm, and the smaller measures 1.0 x 0.4 cm. These are benign. ? Assessment; coronal access right breast 8 cm from the nipple, there is ?? an oval hypoechoic circumscribed mass with good through transmission, ?? internal calcifications, measuring 0.9 x 0.8 x 0.3 cm, correlating well ?? with the index calcified density. This is most likely a also a benign ?? fibroadenoma. ? MM/MM added views RT ?? IMPRESSION: ?? There are no findings suspicious for malignancy in the right breast. ? Calcifications with underlying mass in the 10:00 axis, 8 cm from the ?? nipple, right breast, are probably benign related to a degenerating ?? fibroadenoma, and SIX-MONTH FOLLOW-UP MAGNIFICATION VIEWS is ?? recommended to ensure stability and appropriate evolution. No definite ?? need for follow-up ultrasound. ? Other benign findings in the right breast as discussed. ? OVERALL ASSESSMENT: ?? Mammography: BI-RADS 3 - Probably benign finding(s) - 6 month follow-up ?? suggested ?? Ultrasound: BI-RADS 3 - Probably benign finding(s) - 6 month follow-up ?? suggested ? RECOMMENDATION: ?? 6 Month F/U ? This patient's information was entered into a reminder system with a ?? target due date for their next mammogram. ? Electronically signed by: ??Yasir Alvarado MD ??04/23/2024 04:03 PM EDT RP ? Dictated By: ?Yasir Alvarado MD ? Signed By: ?<Electronically signed by Yasir Alvarado MD in OV> ?04/23/24 1603 ? DD/ 1445 ? TD/TT: 04/23/24 1455 ? Summer Nanny: ? Procedure Note Donotuseinterpreter, Image - [facility] [address] [place] [address] Mammography Report Signed Patient: Lamont Salguero#: [id number] : 1960cct:[id number] Age/Sex: 63 / FADM Date: 04/23/24 Loc: HO.MAMMO Attending Dr: Rubi Weston MD Ordering Physician: Michel Westonults: 3.6MProba yuriy Benign Finding - Short 6 M F/U Suggested Date of Service: 04/23/24Follow Up: 6 Month F/U Procedure(s): MM added views RT Accession Number(s): [id number] cc: Rubi Weston EXAMINATION: MM DIAGNOSTIC DIGITAL BREAST TOMOSYNTHESIS, RIGHT US BREAST LIMITED, RIGHT MAMMOGRAPHY: CLINICAL INFORMATION: Diagnostic, for follow-up grouped calcifications upper outer right breast mid to posterior one third with underlying 8mm masslike density. COMPARISON: Mammography: 02/18/2024 screening, 11/12/2018, 10/24/2017, and 11/04/2014. TECHNIQUE: Digital breast tomosynthesis is performed in the following views: 2-D magnification right CC use x2 and right ML view x1. FINDINGS: There are scattered areas of fibroglandular density (ACR BI-RADS breast composition Category b). Calcifications in the upper outer right breast approximately 10:00 axis, mid to posterior one third, are loosely grouped, coarse in appearance, without significant pleomorphism. There are no branching, casting, or linear forms. These conform to an underlying mass like density, most suggestive of a degenerating fibroadenoma. This will be evaluated with ultrasound. These calcifications are probably benign. There are at least 3 additional oval circumscribed masses, some with similar type dystrophic calcifications, and 2 which have been previously biopsied in the upper outer 11:00 axis, yielding benign fibroadenomas. ULTRASOUND: CLINICAL INFORMATION: As above. COMPARISON: None relevant. TECHNIQUE: Targeted sonographic evaluation was performed using a high frequency linear transducer. Attention was given to the upper outer quadrant of the right breast to include the area of concern. Selected archived documentation. FINDINGS: RIGHT BREAST: Within the 11:00 axis right breast, there are 2 immediately adjacent abutting circumscribed oval hypoechoic masses with good through transmission, with visible biopsy clips abutting the inferior margins, consistent with the known biopsied fibroadenomas. The larger measures 1.1 x 0.4 cm, and the smaller measures 1.0 x 0.4 cm. These are benign. Assessment; coronal access right breast 8 cm from the nipple, there is an oval hypoechoic circumscribed mass with good through transmission, internal calcifications, measuring 0.9 x 0.8 x 0.3 cm, correlating well with the index calcified density. This is most likely a also a benign fibroadenoma. MM/MM added views RT IMPRESSION: There are no findings suspicious for malignancy in the right breast. 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 No definite need for follow-up ultrasound. Other benign findings in the right breast as discussed. OVERALL ASSESSMENT: Mammography: BI-RADS 3 - Probably benign finding(s) - 6 month follow-up suggested Ultrasound: BI-RADS 3 - Probably benign finding(s) - 6 month follow-up suggested RECOMMENDATION: 6 Month F/U This patient's information was entered into a reminder system with a target due date for their next mammogram. Electronically signed by: Yasir Alvarado MD 04/23/2024 04:03 PM EDT Dictated By: Yasir Alvarado MD Signed By: <Electronically signed by Yasir Alvarado MD in OV> 04/23/24 1601 DD/ 1445 TD/TT: 04/23/24 1455 Summer Nanny: us Rubi Weston MD IMG BI PROCEDURES Final Result * Albumin, Random Urine W/Creatinine (03/26/2024 11:05 AM EDT) Creatinine, Urine 82.20 mg/dL [facility] Microalbumin Urine <5.0 mg/L H [facility] Microalbum Creatinine Ratio Ur TNP <30 ug/mg cr [facility] Comment:Unable to calculate albumin/creatinine ratio due to lowmicroalbumin or creatinine result. Urine (Urine, Random) 03/26/2024 11:05 AM EDT 03/26/2024 12:54 PM EDT Rubi Weston MD LAB URINE ORDERABLES Final Res ult Performing Organization Address [facility]/ZIP Co de Phone Number [facility] [address] [place] [phone] * Hepatitis C Antibody with Reflex to HCV, RNA, Quantitative, Real-Time PCR (03/26/2024 11:05 AM EDT) Pathologist [facility] Hepatitis C Antibody Nonreactive Nonreactive [facility] Comment:Antibodies to HCV no t detected; does not exclude early acuteHCV infection. Blood Venous blood specimen / Unknown 03/26/2024 11:05 AM EDT 03/26/2024 1:09 PM EDT Rubi Weston MD LAB BLOOD ORDERABLES Final Res ult Performing Organization Address [facility] Co de Phone Number [facility] [address] [place] [phone] * HIV-1/2 Antigen and Antibodies, Fourth Generation, with Reflexes (03/26/2024 11:05 AM EDT) Pathologist [facility] HIV AB/AG Nonreactive Nonreactive [facility] Comment:HIV-1 p24 Ag and/or HIV-1/HIV-2 Ab not detected.A test result that is nonreactive does not exclude thepossibility of exposure to or infection with HIV-1 and/orHIV-2. Nonreactive results in this assay for individualswith prior exposure to HIV-1 and/or HIV-2 may be due toantigen and antibody levels that are below the limit ofdetection of this assay.The [employer] HIV Ag/Ab Combo assay result andsupplemental assay results should be interpreted inconjunction with the patient's clinical presentation,history and other laboratory results. If the results areinconsistent with clinical evidence, additional testing issuggested to confirm the result. Blood Venous blood specimen / Unknown 03/26/2024 11:05 AM EDT 03/26/2024 1:09 PM EDT us Rubi Weston MD LAB BLOOD ORDERABLES Final Res ult [facility] [address] [place] [phone] * (ABNORMAL) Lipid Panel, Standard (04/12/2023 2:03 PM EDT) Triglycerides 98 <150 mg/dL [facility] Comment:Desirable Triglyceri de: less than 150 mg/dLBorderline High Triglyceride 150-199 mg/dLHigh Triglyceride: 200-499 mg/dLVery High Triglyceride: greater than or equal to 5OO mg/dL Cholesterol 181 <200 mg/dL [facility] Comment:Desirable Cholestero l: less than 200 mg/dLBorderline High Cholesterol: 200-239 mg/dLHigh Cholesterol: greater than 239 mg/dL LDL Cholesterol Calculated 119(H) <100 mg/dL [facility] Comment:Desirable LDL: less than 100 mg/dLNear Optimal/Above Optimal LDL: 110- 129 mg/dLBorderline High LDL: 130-159 mg/dLHigh LDL: 160-189 mg/dLVery High LDL: greater than or equal to 190 mg/dL HDL Cholesterol 43 >40 mg/dL [facility] Comment:Desirable HDL: great er than 40 mg/dL Note: This HDL assay may give artificially low results in patients with liver disease. Blood Venous blood specimen / Unknown 04/12/2023 2:03 PM EDT 04/12/2023 2:03 PM EDT Rubi Weston MD LAB BLOOD ORDERABLES Final Res ult Performing Organization Address [facility] Co de Phone Number [facility] [address] [place] [phone] * THINPREP PAP (11/12/2020 3:01 PM EDT) Clinical Information: None given [facility] COMMENT SEE [facility]MENT [facility] Comment: EXPLANATORY NOTE: ? The Pap is a screening test for cervical cancer. It is ?? not a diagnostic test and is subject to false negative ?? and false positive results. It is most reliable when a ?? satisfactory sample, regularly obtained, is submitted ?? with relevant clinical findings and history, and when ?? the Pap result is evaluated along with historic and ?? current clinical information. ?? Senior Network Architect: SEE COMMENT [facility] Comment: JXM, CT(ASCP) CT screening location: [address] ??[phone] Interpretation/Res ult: SEE COMMENT [facility] Comment: Negative for intraepithelial lesion or malignancy. Atrophic pattern; predominantly parabasal cells LMP: NONE GIVEN [facility] Prev. BX: NONE [facility]IVEN [facility] Prev. PAP: NONE GIVEN [facility] SOURCE: None given [facility] Statement Of Adequacy: SATISFACTORY FOR EVALUATION [facility] 11/12/2020 3:01 PM EDT Rubi Weston MD LAB PATHOLOGY ORDERABLES Final Result Performing Organization Address City/[facility]/ZIP Co de Phone Number [facility] [address] * HPV mRNA E6/E7 (11/12/2020 3:01 PM EDT) HPV nRNA E6/E7 Not Detected Not Detected [facility] Comment: Methodology: Buzzsaw Operator Helper-Mediated Amplification This assay detects E6/E7 viral messenger RNA (mRNA) from 14 high-risk HPV types (16,18,31,33,35,39,45,51,52,56,58,59,66,68). ? The analytical performance characteristics of this assay have been determined by [employer]. The modifications have not been cleared or approved by the FDA. This assay has been validated pursuant to the CLIA regulations and is used for clinical purposes. ?? For additional information, please refer to http://education.eeGeo/faq/OLR178w9 (This link if provided for information/ educational purposes only.) 11/12/2020 3:01 PM EDT us Rubi Weston MD LAB BLOOD ORDERABLES Final Res ult [facility] Anywhere [address] from Last 3 Months or Most Recently Relevant to Health Maintenance Insurance [facility] Care Teams Field Service Manager Relationship Specialty Start Date End Date Rubi Weston MD [address] [place] [address] [place] [address] PCP - General Family Medicine 09/28/20
--- OUTSIDE RECORDS SUMMARY | 2024-09-19 12:47 | XMS_ITS | Clinical Summary ---
Author Organization [address] [facility] Address [address] [place] [address] Phone Care Team Providers Care Addictions Counselor Name Role Phone Unavailable Primary Care Provider Unavailabl e Social History Tobacco Use Types Packs/Day Years Used Date Smoking Tobacco: Never Assessed Sex and Gender Information Value Date Recorded Sex Assigned at Not on file Gender Identity Not on file Sexual Orientation Not on file Plan of Treatment Upcoming Encounters Date Type Department Care Team ([facility] Contact Info) Description 10/06/2024 1:30 PM EST Office Visit Orthopedic Surgery [place] [address] [phone] Meño Wilcox DPM [address] [phone] Health Maintenance Due Date Last Done Comments Breast Cancer Screening 1961 DTaP,Tdap,and Td Vaccines (1 - Tdap) 1980 Cervical Cancer Screening: P ap Smear 1982 Zoster Vaccines (1 of 2) 2011 COVID-19 Vaccine ( - 2023-2 5 season) 2024 Influenza Vaccine (#1) 2024 Colorectal Cancer Screening: Colonoscopy 06/27/2024 Depression Screening 06/27/2024 HIV Screening 06/27/2024 Hepatitis C Screening 06/27/2024 Social Influencers of Health Screening 06/27/2024 RSV Immunization Patients 60 + Years Old (1 - 1-dose 75+ series) 2036 HIB Vaccines Aged Out No longer eligi ble based on patient's age to complete this topic HPV Vaccines Aged Out No longer eligi ble based on patient's age to complete this topic Hepatitis A Vaccines Aged Out No long er eligible based on patient's age to complete this topic Hepatitis B Vaccines Aged Out No long er eligible based on patient's age to complete this topic IPV Vaccines Aged Out No longer eligi ble based on patient's age to complete this topic MMR Vaccines Aged Out No longer eligi ble based on patient's age to complete this topic Meningococcal ACWY Vaccine Aged Out N o longer eligible based on patient's age to complete this topic Pneumococcal Vaccine: Pediat rics (0 to 5 Years) and At-Risk Patients (6 to 64 Years) Aged Out No longer eligible b ased on patient's age to complete this topic RSV Immunization Patients Un shon 20 months Aged Out No longer eligible b ased on patient's age to complete this topic Varicella Vaccines Aged Out No longer eligible based on patient's age to complete this topic
--- OUTSIDE RECORDS SUMMARY | 2024-09-19 12:47 | XMS_ITS | Encounter Summary ---
Author Organization [employer] [facility] Address [address] [place] [address] [address] [place] [address] Care Team Providers Care Self Sealing Fuel Tank Repairer Name Role Phone Rubi Weston MD Primary Care Provider [phone] Reason for Visit * Reason Onset Date Comments Results 04/25/2023 Encounter Details Date Type Department Care Team ([facility] st Contact Info) Description 04/25/2023 Telephone [facility] [address] [place], [place] [phone] Rubi Weston MD [address] [place], [place] [phone] Results Social History Tobacco Use Types Packs/Day Years Used Date Smoking Tobacco: Never Passive Smoke Exposure: Never Smokeless Tobacco: Never Alcohol Use Standard Drinks/Week Comments Never 0 (1 standard drink = 0.6 oz pur e alcohol) Depression Answer Date Recorded Patient Health Questionnaire-2 Score 0 04/11/2023 Comments Unknown Sex and Gender Information Value Date Recorded Sex Assigned at Female 06/19/2022 10:14 AM EDT Legal Sex Female 10:14 AM EDT Gender Identity Female 06/19/2022 10:14 AM EDT Sexual Orientation Straight 06/19/2022 10 :14 AM EDT documented as of this encounter Miscellaneous Notes * Telephone Encounter - Na Antonio RN - 04/26/2023 10:36 AM EDT T/C to pt. For below message, pt. States she already see And no questions or concerns right now. Advised to give call back on [phone] if any questions or concerns. * Telephone Encounter - Soumya Harden - 04/25/2023 9:25 AM EDT Tc from pt requesting a call in regards to recent lab results. Please contact pt at [phone] documented in this encounter Plan of Treatment Not on file documented as of this encounter Visit Diagnoses Not on filedocumented in this encounter Care Teams Self Sealing Fuel Tank Repairer Relationship Specialty Start Date End Date Rubi Weston MD [address] [place] [address] PCP - General Family Medicine 09/28/20 documented as of this encounter
--- OUTSIDE RECORDS SUMMARY | 2024-09-19 12:47 | XMS_ITS | Data Portability ---
Author Organization [employer] [facility] - [facility] Address [address] [place] [phone] Care Team Providers Care Grinder Brake Lining Name Role Phone [facility] Primary Care Provider [phone] HIM CCA OTHER Assessment Encounter Date Assessment Date Assessment LastModified by Organization Details LastModified Time 07/24/2024 07/24/2024 I provided real -time medical direction via phone for this encounter, and was available for additional phone based assistance as needed. I have reviewed and agree with the Assessment and Plan as documented by the Hot Bread Baker. We discussed the diagnostic uncertainty of home visits and the risk associated with this. I felt this to be an acceptable and reasonable amount of risk given the benefit of avoiding an ED visit. The patient given the opportunity to ask questions. Advised if develops CP/severe SOB/turning blue/uncontrolle d n/v/d AMS/ syncope/ hi fever unresponsive to APAP to call 911- she verbalized understanding of instructions to the medic [email or web address] Not available 07/24/2024 13:00:12 Plan of Treatment Reminders Order Date Submit Date Provider Last Modified By Organization Details Last Modified Time Details Appointments None recorded. Lab rapid SARS CoV 2 Ag, QL IA, respiratory specimen 2023 024 [email or web address] 0 [facility], [address] [place] [address], [phone], 4 13:10:11 rapid flu (A+B) 2023 [email or web address], [phone], 4 13:10:11 rapid strep group A, throat 2023 024 [email or web address], [phone], 4 13:10:11 glucose, fingerstick , blood 2023 024 [email or web address] 0 Main - [facility], [address] [place] [address], [phone], 13:10:40 Referral None recorded. Procedures None recorded. Surgeries None recorded. Imaging None recorded. Medication Orders fluticasone propionate 50 mcg/actuati on nasal spray,suspe nsion [address] [facility], [address] [facility], [place], [address], 13:10:19 benzonatate 200 mg capsule [address] [facility], [address] [facility], [place], [address], 13:10:20 Patient TargetsNo targets recorded. Patient InstructionsNo instructions recorded. Reason for Referral None Reported. Results Created Date Observation Date Name Description Value Unit Range Abnormal Flag Note LastModifiedBy Organization Detail LastModifiedTime 07/24/20 24 07/24/2024 gluco se, finge rstic k, blood Blood Glucose: mg/dl 189 Not Available [address], [phone], 07/24/2024 13:10:26 07/24/20 24 07/24/2024 rapid strep group A, throa t Strep negati ve Not Available Main - [facility] ed [address] [place] [address], [phone], 07/24/2024 13:04:14 07/24/20 24 07/24/2024 rapid flu (A+B) Flu negati ve Not Available Main - [facility] ed [address] [place] [address], [phone], 07/24/2024 13:04:13 07/24/20 24 07/24/2024 rapid SARS CoV 2 Ag, QL IA, respi rator y speci men rapid SARS CoV 2 Ag, QL IA, respiratory specimen negati ve Not Available Main - [facility] ed [address] [facility], [place], [phone], 07/24/2024 13:04:12 Result Notes None recorded. Medical Equipment None Reported. Allergies No known drug allergies Medications Name Sig Start Date Stop Date Status Note LastModified by Organization Details LastModified Time vitamin d3 (tone) 50mcg cap TAKE 1 CAPSULE BY MOUTH ONCE DAILY active Not Available Not Available No t Available BD Alcohol Swabs USE DIRECTED ON SKIN active Not Available Not Available No t Available acetaminophen 325 mg tablet TAKE 3 TABLETS BY MOUTH EVERY 6 HOURS. (LIMIT 4000MG OF TYLENOL/AC ETAMINOPHE N PER DAY) active Not Available Not Available N ot Available Vitamin C 500 mg tablet TAKE 1 TABLET BY MOUTH ONCE DAILY WITH IRON active Not Available Not Available No t Available cetirizine 10 mg tablet active Not Available Not Available No t Available ibuprofen 800 mg tablet TAKE 1 TABLET BY MOUTH TWICE DAILY NEEDED FOR PAIN active Not Available Not Available No t Available benzonatate 200 mg capsule Take 1 capsule 3 times a day by oral route as needed, for cough. 2023 active Not Available Not Available Not Avai lable FreeStyle Lancets 28 gauge USE 1 LANCET TO CHECK GLUCOSE TWICE DAILY DIRECTED active Not Available Not Available No t Available sulfamethoxaz ole 800 mg-trimethopr im 160 mg tablet TAKE 1 TABLET BY MOUTH TWICE DAILY FOR 7 DAYS active Not Available Not Available No t Available cephalexin 500 mg capsule TAKE 1 CAPSULE BY MOUTH TWICE DAILY FOR 7 DAYS active Not Available Not Available No t Available simvastatin 20 mg tablet TAKE 1 TABLET BY MOUTH AT BEDTIME active Not Available Not Available No t Available lisinopril 20 mg-hydrochlor othiazide 25 mg tablet TAKE 1 TABLET BY MOUTH ONCE DAILY active Not Available Not Available No t Available hydrocortison e 2.5 % topical cream active Not Available Not Availabl e Not Available metoprolol succinate ER 25 mg tablet,extend ed release 24 hr TAKE 1 TABLET BY MOUTH ONCE DAILY active Not Available Not Available No t Available ferrous sulfate 325 mg (65 mg iron) tablet,delaye d release TAKE 1 TABLET BY MOUTH ONCE DAILY BREAKFAST. DO NOT CRUSH, CHEW OR SPLIT. active Not Available Not Available No t Available fluticasone propionate 50 mcg/actuation nasal spray,suspens ion 1 spray each nostril twice a day for 10 days active Not Available Not Available No t Available metformin ER 500 mg tablet,extend ed release 24 hr TAKE 1 TABLET BY MOUTH ONCE DAILY THE EVENING MEAL. DO NOT CRUSH, CHEW OR SPLIT. active Not Available Not Available No t Available clotrimazole 1 % topical cream APPLY CREAM TOPICALLY TWICE DAILY active Not Available Not Available No t Available oxycodone 5 mg tablet TAKE 1 TABLET BY MOUTH EVERY 6 HOURS NEEDED FOR MODERATE PAIN active Not Available Not Available No t Available cyclobenzapri ne 5 mg tablet TAKE 1 TABLET BY MOUTH THREE TIMES DAILY FOR 20 DAYS active Not Available Not Available No t Available duloxetine 20 mg capsule,delay ed release TAKE 1 CAPSULE BY MOUTH ONCE DAILY IN THE MORNING FOR BONE PAIN active Not Available Not Available No t Available FreeStyle Lite Strips USE 1 STRIP TO CHECK GLUCOSE TWICE DAILY active Not Available Not Available No t Available Vitals Date Recorded Oxygen saturation Oxygen saturation in Arterial blood by Pulse oximetry Heart rate Body weight Body temperature Respiratory rate Systolic blood pressure Diastolic blood pressure Provider Name and Address Organization Details Last Updated DateTime 4 98 % 98 % 84 /min 16442.5 6 g 97.8 [degF] 16 /min 118 mm[Hg] 76 mm[Hg] Not Available [facility] - production 4 12:49:50 Social History None recorded. Functional Status None recorded. Mental Status None recorded. Family History Nothing Reported. Medical History No medical history recorded. Gynecological HistoryNo gynecological history recorded. Obstetrics History GPAL:G 0 P 0 0 0 0 Past Encounters Encounter ID Performer Location Encounter Start Date Encounter Closed Date Diagnosis/Indication Diagnosis SNOMED-CT Code Diagnosis ICD10 Code Diagnosis Note [id number] Mini Wick MD Main - [facility] [address] [place] [phone] 07/24/2024 12:49:41 07/24/2024 13:56:10 Upper respiratory infection 80329951 J06.9 Likely viral, patient is afebrile with no clinical indication s for antibiotic s-blood sugar is minimally elevated postprandi al/advised patient to check it regularly which she has not been. She is aware she can call us for another visit if needed-she verbalized understand ing Patient has cetirizine but has not been taking it-advised to take 10 mg daily. Will add fluticason e to help with nasal congestion / also offered benzonatat e for cough which she accepted- she is aware it is not covered/d/ w patient good rx card-to help defray costs-Red flags reviewed Health Concerns Section Related Observation LastModified by Organization Detai ls LastModified Time None Recorded Concern Status LastModified by Organization Details LastModified Time None Recorded Advance Directives Directive None Recorded Payers Encounter Date Sequence Insurance Name Policy Number Policy Mancilla Covered Member ID Mancilla Member ID Guarantor Name 07/24/2024 1 [facility] - DOS ON OR AFTER 2022 - DUAL ELIGIBLE - JAIL OPTIONS AND ONE CARE (MEDICARE REPLACEMENT/ADV ANTAGE - HMO) Lakshmi Colon [id number] Lakshmi Colon Notes Date Note Type Note Provider Name and Address Organization Details Recorded Time 07/24/2024 text/html CRC Nurse Triage Notes (Demetra Orellana): Reason For Request: Pt reporting cold like symptoms which started 07/22/24>cough, sore throat, fever/chills on the night of 07/23/24>notes some tiredness>denies body aches Chief Complaints: Common cold symptoms, Fever/chills, Weakness PMH: Hypertension, Diabetes Mellitus Type 2, Appendectomy, Fibromyalgia, Depression, Anxiety Disorder Comments: Patient calling in to place a referral, identified via name and . ALLERGIES- she states to an abx, but unsure the name, nothing listed in eCW. Patient with cold symptoms since 07/22 and started with a fever 103 last night. Patient has a sore throat, cough with yellow phlegm, mild shortness of breath, fever/chills/shakes, fatigued and body aches. She denies chest pain, no headache or dizziness, no n/v/d. She would like to be evaluated. Hot Bread Baker Organization Information for [employer] Business Legal Name: [facility] Address: [address] [place] [address], [place] [address], Senior Solutions Architect: Ayo Adair MD CLIA No.: [id number] Hot Bread Baker POC Test Results from [employer] Rapid COVID antigen (12:42:48) COVID: - Attachments uploaded as part of this test result can be found under Documents section. Rapid influenza antigen (12:42:53) Flu: - Attachments uploaded as part of this test result can be found under Documents section. Rapid strep test (12:43:07) Strep: - Attachments uploaded as part of this test result can be found under Documents section. .................... .................... .................... .................... .................... .................... .................... . Hot Bread Baker Note From Serg Padilla: Pt co cold like symptoms for past 2 days to include NC, runny nose, cough with mild production yellow in color, headache tiredness and chills, pt st sore throat yesterday and today sts neg sore throat. Pt sts has not tried OTC meds for symptoms yet. Pt sts eating and drinking appropriately. Pt denies CP, SOB, abdominal pain, NVD. Baseline vitals assessed, WNL, Afebrile, lungs clear bilaterally, Covid flu and strep swab negative. Throat and membranes moist, neg white spots or redness. Pt had good skin color and turgor. [facility] [place] contacted and RX for Flonase and Benzonate called in for draft roller picker. Pt aware benzonatate may not be covered with insurance. Pt advised to drink fluids and rest. Pt advised to monitor symptoms and of worsen to call back or contact PCP. Pt education on signs indicating the ER. Pt signed hard copy consent and was uploaded. .................... .................... .................... .................... .................... .................... .................... . [facility] Consulted: Mini Wick .................... .................... .................... .................... .................... .................... .................... . Disposition: Fulfilled Mini Wick MD [address] [place] [address],[address] [facility], [place], [address], [employer] 07/24/2024 13:45:37 OBGyn Episode No OBEpisode recorded.
--- OUTSIDE RECORDS SUMMARY | 2024-09-19 12:47 | XMS_ITS | Encounter Summary ---
Author Organization [employer] Address [address] [place] [address] [address] [place] [address] Care Team Providers Care Electronic Intelligence Officer Name Role Phone Rubi Weston MD Primary Care Provider Encounter Details Date Type Department Care Team (Late st Contact Info) Description 03/19/2024 Orders Only [facility] MEDICINE [address] [place], [place] [phone] Rubi Weston MD [address] [place], [place] [phone] Social History Tobacco Use Types Packs/Day Years [...] on filedocumented in this encounter Care Teams Electronic Intelligence Officer Relationship Specialty Start Date End Date Rubi Weston MD [address] [place] [address] PCP - General Family Medicine 09/28/20 documented as of this encounter
--- OUTSIDE RECORDS SUMMARY | 2024-09-19 12:47 | XMS_ITS | Encounter Summary ---
Author Organization [employer] [facility] Address [address] [place] [address] [address] [place] [address] Care Team Providers Care Security Analyst Name Role Phone Rubi Weston MD Primary Care Provider [phone] Encounter Details Date Type Department Care Team ([facility] st Contact Info) Description 05/30/2024 Telephone [facility] MEDICINE [address] [place], [place] [phone] Rubi Weston MD [address] [place], [place] [phone] Social History Tobacco Use Types Packs/Day Years [...] on filedocumented in this encounter Care Teams Security Analyst Relationship Specialty Start Date End Date Rubi Weston MD [address] [place] [address] PCP - General Family Medicine 09/28/20 documented as of this encounter
--- OUTSIDE RECORDS SUMMARY | 2024-09-19 12:47 | XMS_ITS | Encounter Summary ---
Author Organization [facility] Address [address] [place] [address] [address] [place] [address] Care Team Providers Care Heating Engineer Name Role Phone Rubi Weston MD Primary Care Provider [phone] Reason for Visit * Reason Comments Diabetes Encounter Details Date Type Department Care Team (Late st Contact Info) Description 09/19/2024 11:30 AM EST Office Visit [facility] MED[facility]INE [address] [place] [address] Rubi Weston MD [address] [place], [place] [phone] Other iron deficiency anemia (Primary Dx); Type 2 diabetes mellitus without complication, without long-term current use of insulin (CMS/HCC); Acute pain of left shoulder Social History Tobacco Use Types Packs/Day Years [...] AM EDT documented as of this encounter Last Filed Vital Signs Vital Sign Reading [...] Mass Index 33.44 09/19/2024 11:47 AM EST documented in this encounter Plan of Treatment Scheduled Orders Name Type Priority Associated Diagnoses Orde r Schedule CBC auto differential Lab Routine Other iron deficiency anemia Expected: 09/19/2024 (Approximate), Expires: 09/19/2025 Lipid Panel, Standard Lab Routine Type 2 diabetes mellitus without complication, without long-term current use of insulin ([facility]) Expected: 09/19/2024 (Approximate), Expires: 09/19/2025 Iron And Total Iron Binding Capacity Lab Routine Other iron deficiency anemia Expected: 09/19/2024, Expires: 09/19/2025 XR Shoulder 2+ Views Left Imaging Routine Acute pain of left shoulder Expected: 09/19/2024, Expires: 09/19/2025 documented as of this encounter Procedures Procedure Name Priority Date/Time Associated Diagnosis Comments POCT GLYCATED HEMOGLOBIN, TOTAL Routine 09/19/2024 11:48 AM EST Type 2 diabetes mellitus without complication, without long-term current use of insulin ([facility]) POCT GLUCOSE Routine 09/19/2024 11:48 AM EST Type 2 diabetes mellitus without complication, without long-term current use of insulin ([facility]) documented in this encounter Results * POCT HGB A1C (09/19/2024 11:48 AM EST) Hemoglobin A1C 5.8 4.0 - 6.0 % QC Media Lot # [id number] Lot# Expiration Date Blood 09/19/2024 11:4 8 AM EST Rubi Weston MD POINT OF CARE TEST ENTER/EDIT ORDERABLES Final Result * POCT Glucose (09/19/2024 11:48 AM EST) Glucose Blood, POC 127 60 - 200 mg/dL QC Media Lot # [id number] Lot# Expiration Date ,025 Blood Capillary blood specimen / Unknown 09/19/2024 11:48 AM EST Rubi Weston MD POINT OF CARE TEST ENTER/EDIT ORDERABLES Final Result documented in this encounter Visit Diagnoses Diagnosis Other iron deficiency anemia- Primary Type 2 diabetes mellitus without complication, without long-term current use of insulin ([facility]) Acute pain of left shoulder documented in this encounter Care Teams Heating Engineer Relationship Specialty Start Date End Date Rubi Weston MD [address] [place] [address] PCP - General Family Medicine 09/28/20 documented as of this encounter
--- OUTSIDE RECORDS SUMMARY | 2024-09-19 12:47 | XMS_ITS | Encounter Summary ---
Author Organization [employer] Address [address] [place] [address] 7[address] [place] [address] Care Team Providers Care Client Relations Associate Name Role Phone Rubi Weston MD Primary Care Provider [phone] Encounter Details Date Type Department Care Team ([facility] st Contact Info) Description 03/18/2024 Telephone [facility] MEDICINE [address] [place], [place] [phone] Rubi Weston MD [address] [place], [place] [phone] Social History Tobacco Use Types Packs/Day Years [...] on filedocumented in this encounter Care Teams Client Relations Associate Relationship Specialty Start Date End Date Rubi Weston MD [address] [place] [address] PCP - General Family Medicine 09/28/20 documented as of this encounter
[2024-09-19 13:25] LABS: MANUAL DIFF FLAG NO
[2024-09-19 13:48] LABS: Basophils Absolute Auto 0.1 X10*3/uL (0.0-0.2); Basophils Percent Auto 0.8 % (0-2); Eosinophils Absolute Auto 0.2 X10*3/uL (0.0-0.4); Eosinophils Percent Auto 1.7 % (0-4); Hematocrit 35.5 % (37.0-47.0); Imm Gran Abs Auto 0.05 X10*3/uL (0.00-0.03); Imm Gran Pct Auto 0.5 % (0.0-0.4); Lymphocytes Absolute Auto 2.6 X10*3/uL (1.2-4.9); Lymphocytes Percent Auto 24.1 % (20-40); Mean Corpuscular Volume 83.9 fL (80.0-98.0); Mean Platelet Volume 11.7 fL (9.4-12.3); Monocytes Absolute Auto 0.7 X10*3/uL (0.1-1.2); Monocytes Percent Auto 6.3 % (2-11); Neutrophils Absolute Auto 7.2 x10*3/uL (2.0-8.3); Neutrophils Percent Auto 66.6 % (45-73); Platelet Count 356 X10*3/uL (160-400); Red Blood Count 4.23 X10*6/uL (4.20-5.50); Red Cell Distribution Width 12.3 % (11.0-16.0); White Blood Count 10.8 X10*3/uL (4.8-10.8)
[2024-09-19 14:06] LABS: Cholesterol 155 mg/dL (<200); HDL Cholesterol 46 mg/dL (>40); Iron 72 mcg/dL (30-160); LDL Cholesterol Calculated 95 mg/dL (<100); Percent Iron Saturation 22 % (15-50); Total Iron Binding Capacity 332 mcg/dL (228-428); Triglycerides 72 mg/dL (<150); Unsaturated Iron Binding 260 ug/dL
== END 2024-09-19 12:20 | disposition home or self-care (01) ==
LOC: HO.HHCL 12:19
PROVIDERS: Visit Provider General Practice
DX: D50.8 Other iron deficiency anemias (principal); E11.9 Type 2 diabetes mellitus without complications; M25.512 Pain in left shoulder
CPT/HCPCS: 36415; 73030; 80061; 83540; 85025

== ENCOUNTER → 2024-09-19 12:44 | Outpatient (BNV) | payer OTHER, SELFPAY | PROVIDERS: Visit Provider Radiology Diagnostic Radiology | DX: M25.512 Pain in left shoulder (principal) | CPT/HCPCS: 73030 ==

== ENCOUNTER → 2024-10-21 10:00 | Outpatient (BNV) | payer OTHER, SELFPAY | PROVIDERS: PCP General Practice; Visit Provider Internal Medicine | DX: R92.1 Mammographic calcification found on diagnostic imaging of breast (principal) | CPT/HCPCS: 77065 ==

== ENCOUNTER 2024-10-21 10:02 | Outpatient (REF) | payer OTHER, SELFPAY ==
--- NOTE | ~2024-10-21 | MM_ITS ---
EXAMINATION: MM DIAGNOSTIC DIGITAL MAMMOGRAPHY, RIGHT CLINICAL INFORMATION: 6 month follow-up right breast calcifications upper outer breast. COMPARISON: Mammography: Comparison is made with available prior examinations in PACS. TECHNIQUE: Digital mammography is performed in craniocaudal and mediolateral oblique views along with computer-aided detection (CAD). FINDINGS: There are scattered areas of fibroglandular density (ACR BI-RADS breast composition Category b). Grouped coarse heterogeneous calcifications in the upper outer breast are not significantly changed from priors on magnification views. No suspicious masses or other abnormal findings. Results are provided to the patient at time of visit by the technologist. MM/MM diagnostic mammo unilat RT IMPRESSION: Grouped calcifications in the upper outer right breast are not significantly changed from priors on magnification views. Recommend six-month follow-up with magnification views to demonstrate 1 year stability when the patient is due for bilateral mammography. ASSESSMENT: BI-RADS BI-RADS 3 - Probably benign finding(s) - 6 month follow-up suggested RECOMMENDATION: 6 Month F/U This patient's information was entered into a reminder system with a target due date for their next mammogram. Electronically signed by: Kati Fiore DO 10/21/2024 10:35 AM EST
--- OUTSIDE RECORDS SUMMARY | 2024-10-21 11:59 | XMS_ITS | Encounter Summary ---
Author Organization [facility] Address [id number] [place] [id number] Care Team Providers Care Civil Service Clerk Name Role Phone Physician, Pcp Unknown Primary Care Provider Shelly vailable Reason for Visit * Reason Comments Foot Pain VICE PRESIDENT QUALITY PLANTAR FASCITIS * Orthopedic (Routine) - Closed Specialty Diagnoses / Procedures Referred By Shahbaz t Referred To Contact Podiatry / Orthopaedic Surgery Diagnoses Plantar fascial fibromatosis Procedures AMB Referral to Podiatry. Physician, Pcp Unknown Meño Wilcox DPM [address] [address] Phone: tel: fax: Referral ID Status Reason Start Date Expiration Date V isits Requested Visits Authorized [id number] Closed Consult and Treat 06/27/2024 06/27/2025 1 1 Encounter Details Date Type Department Care Team (Late st Contact Info) Description 10/06/2024 1:30 PM EST Office Visit Orthopedic Surgery - [address] [phone] Meño Wilcox DPM [address] [address] Controlled type 2 diabetes with neuropathy (CMS/HCC) (Primary Dx); Equinus contracture of right ankle; Dermatophytosis, nail; Plantar fasciitis Social History Tobacco Use Types Packs/Day Years Used Date Smoking Tobacco: Never Assessed Comments Unknown Sex and Gender Information Value Date Recorded Sex Assigned at Not on file Legal Sex Female 1:31 PM EST Gender Identity Not on file Sexual Orientation Not on file documented as of this encounter Last Filed Vital Signs Vital Sign Reading Time Taken Comments Blood Pressure - - Pulse - - Temperature - - Respiratory Rate - - Oxygen Saturation - - Inhaled Oxygen Concentration - - Weight 65.8 kg (145 lb) 10/06/2024 1:30 PM EST Height 165.1 cm (5' 5 ) 10/06/2024 1:30 PM EST Body Mass Index 24.13 10/06/2024 1:30 PM EST documented in this encounter Progress Notes * Meño Wilcox DPM - 10/06/2024 1:30 PM ESTAssociated Order(s): Injection tendon or ligament Post-Procedure Diagnose(s): Plantar fasciitis Referring MD: Michael Last PCP visit: 09/19/2024 IDENTIFIER: @TITLE@ Colon is a 64 y.o. year old female who presents for consultation. CC: Pain in feet HPI: 64-year-old female presents office chief complaint of bilateral heel pain. Patient notes that aftersitting for long periods of time and standing she starts to get increased amounts of pain to the bottoms of her feet. Patient denies any recent trauma. Patient is wearing insoles and proper shoe gearwith no relief. Patient has not started physical therapy. Patient also notes she has had thickened misshapened nails for prolonged amounts of time and has tried multiple topicals without relief. Patient is here for evaluation treatment ROS: GENERAL: Pt denies nausea, fever, vomiting, chills, or shortness of breath. Pt in NAD. CARDIOLOGY: pt denies chest pain, palpitations LUNGS: pt denies shortness of breath MUSCULOSKELETAL: See HPI, otherwise no joint pain or swelling, back pain, or muscle pain. SKIN: see HPI, otherwise no lesions, rash or itching NEURO: No persistent headache, weakness or numbness The remainder of the review of systems is noncontributory PAST MEDICAL HISTORY: There is no problem list on file for this patient. SOCIAL HISTORY: Social History Tobacco Use Smoking status: Not on file Smokeless tobacco: Not on file Substance Use Topics Alcohol use: Not on file ACTIVE MEDICATIONS: No outpatient medications have been marked as taking for the 10/06/24 encounter (Office Visit) with Meño Wilcox DPM. ALLERGIES: @ALL@ PHYSICAL EXAM: Height 1.651 m (65 ), weight 65.8 kg (145 lb). PODIATRIC EXAMINATION: GENERAL: Patient appears well nourished, with NAD. VASCULAR: Dorsalis pedis pulses are 2/4 bilaterally and Posterior tibial pulses are 2/4 bilaterally. Capillary filling time within normal limits the digits. No pallor on elevation or rubor on dependency. Positive hair growth. No varicosities. Denies rest pain or claudication pain. NEUROLOGICAL: Sharp/dull sensation intact, protective sensation intact on Raymond. Multiple peripheral neuropathies bilaterally. ORTHOPEDIC: Good muscle strength 5/5 of all flexors and extensors. Dorsi flexion of ankle ,10 degrees, plantar flexion WNL. No muscle atrophy. Pain on palpation of the midfoot. Pain and swelling on palpation of the medial tubercle of the heels bilaterally right greater than left. Increased contracture of the posterior compartment with the knees straightened. DERMATOLOGICAL:.No masses or skin lesions noted. Normal skin temperature, normal skin turgor. Nailsare elongated dystrophic discolored x 10 with subungual debris BIOMECHANICS: STJ ROM wnl, MTJ ROM wnl, 1st MPJ ROM wnl. IMPRESSION: 1. Controlled type 2 diabetes with neuropathy (CMS/HCC) 2. Equinus contracture of right ankle 3. Dermatophytosis, nail 4. Plantar fasciitis PLAN: Pt was seen and examined, history reviewed. Patient educated on the importance of good pedal hygiene and tight blood glucose control. Patient encouraged to maintain a healthy lifestyle with a well-balanced diet. Patient should never go barefoot and wear supportive shoe gear. Patient should aim for A1c less than 7% every month. Continue with regular appointments with PMD or center medical and lab director for tight medical management Patient with findings of contracture of the posterior compartments. Patient instructed to do stretching exercises daily in order to limit the pull from the posterior compartment onto the plantar musculature. Patient instructed to continue with orthotics and shoe gear for proper alignment of the midfoot to inhibit flattening during stance [address]: (t5) Procedure Utilizing sterile instramentation the affected nail(s) and subungual tissue were removed/Biopsy of nail unit of one or more nails was achieved and the nail and tissue were subsequently placed in a specimen container and will be sent to pathology for definitive diagnosis and lab evaluationto define treatment for this condition Patient being treated for bilateral plantar fasciitis Conservative treatment options discussed and the decision made to try an corticosteroid injection today. Risks and benefits explained to patient. Injection to the area was performed after written consent was obtained. Risks and benefits discussed in detail with patient and include but are not limited to risk of infection risk of recurrence risk of steroid flare. Injection given to the bilateral heel heel of half cc 1% lidocaine half cc of Kenalog 40 Patient understands that the first three days status post injection, the site may feel sore. Patient is to ice and elevate during this time. Patient understands that the injection is to decrease inflammation and reduce flares. Patient understands that it is variable how long the injection lasts. All questions answered. Injection tendon or ligament Indications: pain Details: 25 G needle Medications: 0.5 mL lidocaine (PF) 1 %; 40 mg triamcinolone acetonide 40 mg/mL Informed Consent: Laterality: Bilateral Meño Wilcox DPM documented in this encounter Plan of Treatment Upcoming Encounters Date Type Department Care Team (Late st Contact Info) Description 10/22/2024 1:30 PM EST Office Visit Orthopedic Surgery - [place] [phone] [phone] Meño Wilcox DPM [address] [address] documented as of this encounter Procedures Procedure Name Priority Date/Time Associated Diagnosis Comments INJECTION TENDON OR LIGAMENT Routine 10/06/2024 1:30 PM EST Plantar fasciitis documented in this encounter Results * Injection tendon or ligament (10/06/2024 1:30 PM EST) Narrative Meño Wilcox DPM - 10/06/2024 1:30 PM EST Meño Wilcox DPM ? 10/06/2024 ??6:40 PM Injection tendon or ligament Indications: pain Details: 25 G needle Medications: 0.5 mL lidocaine (PF) 1 %; 40 mg triamcinolone acetonide 40 mg/mL Informed Consent: ??Laterality: ??Bilateral us Meño Wilcox DPM IN CLINIC/BEDSIDE ORDERABLE S Final Result documented in this encounter Visit Diagnoses Diagnosis Controlled type 2 diabetes with neuropathy (CMS/HCC)- Primary Type II or unspecified type diabetes mellitus with neurological manifestations, not stated as uncontrolled Equinus contracture of right ankle Dermatophytosis, nail Dermatophytosis of nail Plantar fasciitis Plantar fascial fibromatosis documented in this encounter Administered Medications Inactive Administered Medications - up to 3 most recent administrations Medication Order MAR Action Action Date Dose Rate Site lidocaine (PF) (XYLOCAINE-MPF) 1 % injection 0.5 mL 0.5 mL, injection, Once PRN Procedure, Starting on 10/06/24 at 1330, For 1 doseIndications:Plantar fasciitis Given 10/06/2024 1:30 PM EST 0.5 mL triamcinolone acetonide (KENALOG-40) 40 mg/mL injection 40 mg 40 mg, intra-articular, Once PRN Procedure, Starting on 10/06/24 at 1330, For 1 doseIndications:Plantar fasciitis Given 10/06/2024 1:30 PM EST 40 mg documented in this encounter Care Teams Civil Service Clerk Relationship Specialty Start Date End Date Physician, Pcp Unknown PCP - General 10/02/24 documented as of this encounter
--- OUTSIDE RECORDS SUMMARY | 2024-10-21 11:59 | XMS_ITS | Encounter Summary ---
Author Organization [employer] Address [address] [place] [address] 7t [place] [address] Care Team Providers Care Contact Center Specialist Name Role Phone Rubi Weston MD Primary Care Provider [phone] Encounter Details Date Type Department Care Team (Late st Contact Info) Description 03/19/2024 Orders Only [facility] MEDICINE [address] [place], [place] [phone] Rubi Weston MD [address] [place], [place] [phone] Social History Tobacco Use Types Packs/Day Years [...] on filedocumented in this encounter Care Teams Contact Center Specialist Relationship Specialty Start Date End Date Rubi Weston MD [address] [place] [address] PCP - General Family Medicine 09/28/20 documented as of this encounter
--- OUTSIDE RECORDS SUMMARY | 2024-10-21 11:59 | XMS_ITS | Encounter Summary ---
Author Organization [facility] Address [address] [place] [address] [address] [place] [address] Care Team Providers Care Machine Fancy Stitcher Name Role Phone Rubi Weston MD Primary Care Provider [phone] Reason for Visit * Reason Onset Date Comments Appointment Request 03/05/2024 Encounter Details Date Type Department Care Team ([facility] st Contact Info) Description 03/05/2024 Telephone [facility] MEDICINE [address] [place] [address] Rubi Weston MD [address] [place], [place] [phone] Appointment Request Social History Tobacco Use Types [...] t he electric, gas, oil or water [employer] threatened to shut off services in your [...] or appt notice. Please contact pt at [phone]. documented in this encounter Plan of Treatment Not on file documented as of this encounter Visit Diagnoses Not on filedocumented in this encounter Care Teams Machine Fancy Stitcher Relationship Specialty Start Date End Date Rubi Weston MD [address] [place] [phone] PCP - General Family Medicine 09/28/20 documented as of this encounter
--- OUTSIDE RECORDS SUMMARY | 2024-10-21 11:59 | XMS_ITS | Encounter Summary ---
Author Organization [employer] Address [address] [place] [address] [address]t [place] [address] Care Team Providers Care Financial Sales Professional Name Role Phone Rubi Weston MD Primary Care Provider [phone] Reason for Visit * Reason Onset Date Comments Results 09/24/2024 Encounter Details Date Type Department Care Team ([facility] st Contact Info) Description 09/24/2024 Telephone [facility] MEDICINE [address] [place], [place] [phone] Ursula Holley RN [address] [place], [place] [phone] Results Social History Tobacco Use Types Packs/Day [...] encounter Miscellaneous Notes * Telephone Encounter - Ursula Holley RN - 09/24/2024 12:45 PM EST TC placed to patient [phone] in regards to below message. Patient verbalized understanding andis agreeable for steroid injection at [facility] pharmacy. RN scheduled patient for 10/07 at 9:15am. Patient agreed to appointment date and time. Patient to f/u PRN. ----- Message from Rubi Weston MD sent at 09/24/2024 12:21 PM EST ----- Please let patient know labs show stable anemia,to continue tx with iron. Xray with mild OA of shoulder, would she like an injection of steroid at our clinic or at ortho? documented in this encounter Plan of Treatment Not on file documented as of this encounter Visit Diagnoses Not on filedocumented in this encounter Care Teams Financial Sales Professional Relationship Specialty Start Date End Date Rubi Weston MD [address] [place] [id number] PCP - General Family Medicine 09/28/20 documented as of this encounter
--- OUTSIDE RECORDS SUMMARY | 2024-10-21 11:59 | XMS_ITS | Clinical Summary ---
Author Organization [employer] [facility] Address [address] [place] [address] [address] [place] [address] Care Team Providers Care Beehive Kiln Supervisor Name Role Phone Rubi Weston MD Primary Care Provider [phone] Allergies Active Allergy Reactions Criticality Noted Date Comments Aspirin Rash Low 08/30/2010 Doxycycline 08/30/2010 Other reaction(s): nausea: vomiting, migraine Medications lidocaine (Lidoderm) 5 % patchIndications:F ibromyositis Apply 1 patch topically in the morning. 30 patch 1 08/16/20 22 Active Blood Glucose Monitoring Suppl (NaturalPath MediaStyle [place] Lite) w/Device kit Use to test blood sugar bid dx dm 1 kit 04/25/20 23 Active Sharps Container (Sharps Wax Engraver) misc 1 Units if needed in the morning and at bedtime (sharps). Dispose used sharps in container. 1 each 3 04/25/20 23 Active clotrimazole (Lotrimin) 1 % cream APPLY CREAM TOPICALLY TWICE DAILY 12/04/19 24 Active metFORMIN XR (Glucophage-XR) 500 MG 24 hr tablet Take 1 tablet (500 mg) by mouth with evening meal. Do not crush, chew, or split. 90 tablet 3 01/28/20 24 025 Active Additional Information Patient taking differently:500 mg OralDaily PRN, Do not crush, chew, or split. , Reported on 04/01/2024 fish oil (White-3) 500 MG capsule Take 1 capsule (500 mg) by mouth Once per day. 90 capsule 3 03/26/20 24 Active lisinopril-hydroCH LOROthiazide 20-25 MG tablet Take 1 tablet by mouth Once per day. 90 tablet 3 03/26/20 24 Active metoprolol succinate XL (Toprol-XL) 25 MG 24 hr tablet Take 1 tablet (25 mg) by mouth Once per day. 90 tablet 3 03/26/20 24 Active cholecalciferol VITAMIN D (Vitamin D-3) 50 MCG (1999 UT) capsule Take 1 capsule (50 mcg) by mouth Once per day. 90 capsule 3 03/26/20 24 Active urea (Carmol) 10 % creamIndications:T ype 2 diabetes mellitus without complication, without long-term current use of insulin ([facility]) Apply topically if needed for dry skin (feet and hands). 453 g 2 03/26/20 24 025 Active cyclobenzaprine (Flexeril) 5 MG tablet Take 5 mg by mouth if needed each day for muscle spasms. Active Alcohol Swabs (Alcohol Pads) 70 % pads Use as directed on skin 100 each 04/01/20 24 Active FreeStyle lancets 1 each by Other [...] 1 08/12/20 24 Active ibuprofen 800 MG tabletIndications: Primary osteoarthritis of left hip Take 1 tablet (800 mg) by mouth if needed in the morning and at bedtime for moderate pain. 60 tablet 3 09/19/19 25 Active fluticasone (Flonase) 50 MCG/ACT nasal spray USE 1 SPRAY IN EACH NOSTRIL TWICE DAILY FOR 10 DAYS 07/24/20 24 Active cholecalciferol VITAMIN D (Vitamin D-3) 50 MCG (1999 UT) capsule Take 1 capsule by mouth Once per day. 03/26/20 24 Active nitrofurantoin, macrocrystal-monoh ydrate, (Macrobid) 100 MG capsuleIndications :Urinary tract infection without hematuria, site unspecified Take 1 capsule (100 mg) by mouth 2 times daily for 5 days. 10 capsule 10/07/19 25 025 phenazopyridine (Pyridium) 100 MG tabletIndications: Urinary tract infection without hematuria, site unspecified Take 1 tablet (100 mg) by mouth if needed in the morning, at noon, and at bedtime for bladder spasms for up to 3 days. 10 tablet 10/07/19 25 025 Hospital, Clinic, or Other Facility Administered Medication Ordered Dose Route Frequency Start Date End Date Status triamcinolone acetonide (Kenalog-40) injection 40 mgIndications:Localized primary osteoarthritis of left shoulder region 40 mg IX Once 10/07/2024 Acti ve lidocaine (Xylocaine) 2 % injection 40 mgIndications:Localized primary osteoarthritis of left shoulder region 40 mg IJ Once 10/07/2024 Acti ve Active Problems Problem Noted Date Diagnosed Date [...] Plan (03/26/2024 11:03 AM EDT): Maintenance: Lisinopril/HCTZ BMP: eGFR 59 (03/2023) Lipid Panel: Lab [...] 8:25 AM EDT): Flexeril refills ordered Continue CYmbalta Assessment & Plan (04/13/2023 8:15 AM EDT): Flexeril refills ordered Iron deficiency anemia 07/27/2015 Assessment & Plan (01/28/2024 8:27 AM EDT): On periodic ferrous sulfate Lab Results Component Value Date HGB 11.1 (L) 04/12/2023 HGB 10.8 (L) 11/17/2022 HGB 10.9 (L) 03/30/2022 HGB 10.2 (L) 02/16/2021 HGB 10.1 (L) 02/11/2021 HGB 10.8 (L) 09/30/2020 Obesity 07/27/2015 Encounters Date Type Department Care Team Description 10/21/2024 Orders Only [facility] MEDICINE [address] [place] [phone] Rubi Weston MD 10/07/2024 9:15 AM EST Procedure Visit [address] [address] Rubi Weston MD Localized primary osteoarthritis of left shoulder region (Primary Dx); Urinary tract infection without hematuria, site unspecified 10/07/2024 Travel 09/24/[address] [address] Ursula Holley, RN Results 09/19/2024 11:30 AM EST Office Visit [address] [address] Rubi Weston MD Type 2 diabetes mellitus without complication, without long-term current use of insulin ([facility]) (Primary Dx); Other iron deficiency anemia; Acute pain of left shoulder; Dietary counseling; Exercise counseling; Class 1 obesity due to excess calories with serious comorbidity and body mass index (BMI) of 33.0 to 33.9 in adult; Primary osteoarthritis of left hip 09/19/2024 Travel 09/18/[address] [address] Rubi Weston MD chart prep 08/11/[address] [address] Rubi Weston MD 08/11/[address] [address] Martha Clement MA rs appt 08/11/[address] [phone] Ruth Williamson MA Provider Out 07/31/2024 Patient Outreach [address] [address] Rubi Weston MD Pre-visit Planning (MOOH screening completed on 01/18/2024) from Last 3 [...] Sign Reading Time Taken Comments Blood Pressure 140/69 10/07/2024 9:40 AM EST Pulse 72 10/07/2024 9:40 AM EST Temperature 36.3 ??C (97.4 ??F) 10/07/2024 9:40 AM ES T Respiratory Rate 16 10/07/2024 9:40 AM EST Oxygen Saturation 97% 10/07/2024 9:40 AM EST Inhaled Oxygen Concentration - - Weight 85.3 kg (188 lb) 10/07/2024 9:40 AM EST Height 160 cm (5' 3 ) 10/07/2024 9:40 AM EST Body Mass Index 33.3 10/07/2024 9:40 AM EST Plan of Treatment Health Maintenance Due Date Last Done Comments CT Colonography 1961 Colonoscopy 1961 FIT 1961 FOBT 1961 Sigmoidoscopy 1961 Eye Exam 1971 Alcohol/Substance Use Screening 1973 Pneumococcal Vaccine: 50+ Years (2 of 2 - PCV) 07/05/2002 07/05/2001 Zoster Vaccines (1 of 2) 2011 DTaP/Tdap/Td Vaccines (2 - Td or Tdap) 03/12/2022 03/12/2012, 08/20/1988 Depression Screening 04/11/2024 04/11/2023, 04/11/20 23 COVID-19 Vaccine (1 - season) 2024 Influenza Vaccine (#1) 2024 , 05/27/2019, 10/03/2018, Additional history exists Diagnostic Breast Imaging 10/21/20242024, 04/23/2024, 04/23/2024 Diabetes: Hemoglobin A1C 12/17/2024 025, 03/26/2024, 01/28/2024, Additional history exists SDOH Screening 01/17/2025 01/18/2024 Diabetes: Urine Protein Screening 03/26/2025 03/26/2024, 09/30/2020 Colorectal Cancer Screening 04/11/2025 FIT DNA/Cologuard 04/11/2025 04/11/2022 Diabetes: Foot Exam 05/28/2025 05/28/2024, 05/28/2024, 05/28/2024, Additional history exists Lipid Panel 09/19/2025 09/19/2024, 03/21, 03/30/2022, Additional history exists Tobacco Screening 10/07/2025 10/07/2024 Cervical Cancer Screening 11/12/2025 HPV/Cotest 11/12/2025 11/12/2020 [...] Procedure Name Priority Date/Time Associated Diagnosis Comments BI MAMMOGRAM DIAGNOSTIC RIGHT Routine 10/21/2024 10:10 AM EST MO ARTHROCENTESIS ASPIR&/INJ MAJOR JT/BURSA W/O US Routine 10/12/2024 10:05 AM EST Localized primary osteoarthritis of left shoulder region POCT URINALYSIS DIPSTICK Routine 10/07/2024 10:14 AM EST Urinary tract infection without hematuria, site unspecified XR SHOULDER 2+ VIEWS LEFT Routine 09/19/2024 12:44 PM EST Acute pain of left shoulder IRON AND TOTAL IRON BINDING CAPACITY Routine 09/19/2024 12:23 PM EST Other iron deficiency anemia LIPID PANEL, STANDARD Routine 09/19/2024 12:23 PM EST Type 2 diabetes mellitus without complication, without long-term current use of insulin (CMS/HCC) CBC WITH AUTO DIFFERENTIAL Routine 09/19/2024 12:23 PM EST Other iron deficiency anemia POCT GLYCATED HEMOGLOBIN, TOTAL Routine 09/19/2024 11:48 AM EST Type 2 diabetes mellitus without complication, without long-term current use of insulin (CMS/HCC) POCT GLUCOSE Routine 09/19/2024 11:48 AM EST Type 2 diabetes mellitus without complication, without long-term current use of insulin (CMS/HCC) HEPATITIS C AB W/REFL TO HCV RNA, QN, PCR Routine 03/26/2024 11:05 AM EDT Type 2 diabetes mellitus without complication, without long-term current use of insulin (CMS/HCC) HIV 1/2 ANTIGEN/ANTIBODY, FOURTH GENERATION W/RFL Routine 03/26/2024 11:05 AM EDT Type 2 diabetes mellitus without complication, without long-term current use of insulin ([facility]) ALBUMIN, RANDOM URINE W/CREATININE Routine 03/26/2024 11:05 AM EDT Type 2 diabetes mellitus without complication, without long-term current use of insulin ([facility]) HPV MRNA E6/E7 Routine 11/12/2020 3:01 PM EDT THINPREP PAP Routine 11/12/2020 3:01 PM EDT from Last 3 Months or Most Recently Relevant to Health Maintenance Results * Mammogram Diagnostic Right (10/21/2024 10:10 AM EST) Anatomical Region Laterality Modality Breast Right Mammography 10/21/2024 10:1 0 AM EST Narrative 10/21/2024 10:38 AM EST ? [facility] [place] ? [address] ?[place] [address] ? Mammography Report ? Signed ? Patient: Colon,Lakshmi ?MR#: [id number] ? : 1960 ?Acct:[id number] ? Age/Sex: 64 / F ?ADM Date: //25 ? Loc: HO.MAMMO ? Attending Dr: Rubi Weston MD ? Ordering Physician: Rubi Weston ?Results: 3.6MProba ?? yuriy Benign Finding - Short 6 M F/U Suggested ? Date of Service: 10/21/24 ?Follow Up: 6 Month F/U ? Procedure(s): MM diagnostic mammo unilat RT ?? Accession Number(s): [id number] ? cc: Rubi Weston ? EXAMINATION: ?? MM DIAGNOSTIC DIGITAL MAMMOGRAPHY, RIGHT ? CLINICAL INFORMATION: ? 6 month follow-up right breast calcifications upper outer breast. ? COMPARISON: ?? Mammography: Comparison is made with available prior examinations in ?? PACS. ? TECHNIQUE: ?? Digital mammography is performed in craniocaudal and mediolateral ?? oblique views along with computer-aided detection (CAD). ? FINDINGS: ?? There are scattered areas of fibroglandular density (ACR BI-RADS breast ?? composition Category b). ?? Grouped coarse heterogeneous calcifications in the upper outer breast ?? are not significantly changed from priors on magnification views. ?? No suspicious masses or other abnormal findings. ? Results are provided to the patient at time of visit by the ?? technologist. ? MM/MM diagnostic mammo unilat RT ?? IMPRESSION: ?? Grouped calcifications in the upper outer right breast are not ?? significantly changed from priors on magnification views. ?? Recommend six-month follow-up with magnification views to demonstrate 1 ?? year stability when the patient is due for bilateral mammography. ? ASSESSMENT: ? BI-RADS BI-RADS 3 - Probably benign finding(s) - 6 month follow-up ?? suggested ? RECOMMENDATION: ?? 6 Month F/U ? This patient's information was entered into a reminder system with a ?? target due date for their next mammogram. ? Electronically signed by: ??Kati Fiore DO ??10/21/2024 10:35 AM EST ?? RP ? Dictated By: ?Kati Fiore DO ? Signed By: ?<Electronically signed by Kati Fiore, DO in OV> ? 10/21/24 1035 ? DD/ 1010 ? TD/TT: 10/21/24 1025 ? Interventional Physician: ? Procedure Note Donotuseinterpreter, Image - 10/21/2024 [facility] [address] [place] [address] Mammography Report Signed Patient: Lamont Salguero#: [id number] : 1Acct:[id number] Age/Sex: 64 / FADM Date: 10/21/24 Loc: HO.MAMMO Attending Dr: Rubi Weston MD Ordering Physician: Michel Westonults: 3.6MProba yuriy Benign Finding - Short 6 M F/U Suggested Date of Service: 10/21/24Follow Up: 6 Month F/U Procedure(s): MM diagnostic mammo unilat RT Accession Number(s): [id number] cc: Rubi Weston EXAMINATION: MM DIAGNOSTIC DIGITAL MAMMOGRAPHY, RIGHT CLINICAL INFORMATION: 6 month follow-up right breast calcifications upper outer breast. COMPARISON: Mammography: Comparison is made with available prior examinations in PACS. TECHNIQUE: Digital mammography is performed in craniocaudal and mediolateral oblique views along with computer-aided detection (CAD). FINDINGS: There are scattered areas of fibroglandular density (ACR BI-RADS breast composition Category b). Grouped coarse heterogeneous calcifications in the upper outer breast are not significantly changed from priors on magnification views. No suspicious masses or other abnormal findings. Results are provided to the patient at time of visit by the technologist. MM/MM diagnostic mammo unilat RT IMPRESSION: Grouped calcifications in the upper outer right breast are not significantly changed from priors on magnification views. Recommend six-month follow-up with magnification views to demonstrate 1 year stability when the patient is due for bilateral mammography. ASSESSMENT: BI-RADS BI-RADS 3 - Probably benign finding(s) - 6 month follow-up suggested RECOMMENDATION: 6 Month F/U This patient's information was entered into a reminder system with a target due date for their next mammogram. Electronically signed by: Kati Fiore DO 10/21/2024 10:35 AM EST Dictated By: Kati Fiore DO Signed By: <Electronically signed by Kati Fiore DO in OV> 10/21/24 1035 DD/ 1010 TD/TT: 10/21/24 1025 Interventional Physician: us Rubi Weston MD IMG BI PROCEDURES Final Result * MO ARTHROCENTESIS ASPIR&/INJ MAJOR JT/BURSA W/O US (10/12/2024 10:05 AM EST) Narrative Rubi Weston MD - 10/12/2024 10:05 AM EST Rubi Weston MD ? 10/12/2024 10:12 AM Arthrocentesis Date/Time: 10/12/2024 10:05 AM Performed by: Rubi Weston MD Authorized by: Rubi Weston MD ?? Consent: ??Consent obtained: ??Written ??Consent given by: ??Patient ??Risks, benefits, and alternatives were discussed: yes ?Risks discussed: ??Bleeding and infection ??Alternatives discussed: ??No treatment, delayed treatment, alternative treatment and observation [place] protocol: ??Procedure explained and questions answered to patient or proxy's satisfaction: yes ?Relevant documents present and verified: yes ?Test results available: yes ?Imaging studies available: yes ?Site/side marked: yes ?Immediately prior to procedure, a time out was called: yes ?Patient identity confirmed: ??Verbally with patient Location: ??Location: ??Shoulder ??Shoulder: ??L glenohumeral Anesthesia: ??Anesthesia method: ??None Procedure details: ??Needle gauge: ??22 G ??Ultrasound guidance: no ?Approach: ??Lateral ??Steroid injected: yes ?? Post-procedure details: ??Dressing: ??Adhesive bandage ??Procedure completion: ??Tolerated well, no immediate complications Comments: ?? Injected 40mg Kenalog and 2cc of xylocaine 2% without epi into the L subacromial space with lateral approach, this approach was taken due to findings of glenohumeral arthritis. Rubi Weston MD IN CLINIC/BEDSIDE ORDERABLES F inal Result * (ABNORMAL) POCT Urinalysis (10/07/2024 10:14 AM EST) Color, UA Yellow Clarity, UA Cloudy Glucose, UA Negative Bilirubin, UA Negative Ketones, UA Negative Spec Grav, UA 1.020 Blood, UA Positive(A) Negative, None Detected Comment:trace-intact pH, UA 5.5 Protein, UA 1+ 70+ Comment:30mg/dl Urobilinogen, UA 0.2 Leukocytes, UA Trace Negative, Rare, Trace Comment:small Nitrite, UA Positive(A) Negative, None Detected Appearance, UA cloudy QC Media Lot # [id number] Lot# Expiration Date [id number] Urine 10/07/2024 10:1 4 AM EST Rubi Weston MD POINT OF CARE TEST ENTER/EDIT ORDERABLES Final Result * XR Shoulder 2+ Views Left (09/19/2024 12:44 PM EST) Anatomical Region Laterality Modality Upper Extremities, Shoulder Left Radi ographic Imaging 09/19/2024 12:4 4 PM EST Narrative 09/19/2024 1:12 PM EST ? [facility] ?[address] ?[place] [address] ?XRay Report ? Signed ? Patient: Colon,Lakshmi ?MR#: [id number] ? : 1960 ?Acct:[id number] ? Age/Sex: 64 / F ?ADM Date: 09/19/24 ? Loc: HO.HHCL ? Attending Dr: Rubi Weston MD ? Ordering Physician: Rubi Weston ?? Date of Service: 09/19/24 ?? Procedure(s): XR shoulder LT min 2V ?? Accession Number(s): [id number] ? cc: Rubi Weston ? EXAMINATION: ?? XR SHOULDER, LEFT ? CLINICAL INFORMATION: ?? pain ? COMPARISON: ?? No priors ? TECHNIQUE: ?? AP external rotation, Grashey, scapular Y, and axillary views of the ?? left shoulder. ? FINDINGS: ?? No acute cortical disruption or malalignment. No lytic or blastic ?? lesions. Subchondral cyst formation in the greater tuberosity of the ?? left humerus. ? XR/XR shoulder LT min 2V ?? IMPRESSION: ?? Mild osteoarthrosis, greater tuberosity left humerus. ? Electronically signed by: ??Tam Campo MD ??09/19/2024 01:09 PM ?? EST RP ? Dictated By: ?Tam Rosado MD ? Signed By: ?<Electronically signed by Tam Oropeza MD in OV> ? 09/19/24 1309 ? DD/ 1244 ? TD/TT: 09/19/24 1251 ? Interventional Physician: ? Procedure Note Donotuseinterpreter, Image - 09/19/2024 [place] [address] XRay Report Signed Patient: Lamont Salguero#: [id number] : 1960cct:[id number] Age/Sex: 64 / FADM Date: 09/19/24 Loc: HO.[facility] Attending Dr: Rubi Weston MD Ordering Physician: Rubi Weston Date of Service: 09/19/24 Procedure(s): XR shoulder LT min 2V Accession Number(s): [id number] cc: Rubi Weston EXAMINATION: XR SHOULDER, LEFT CLINICAL INFORMATION: pain COMPARISON: No priors TECHNIQUE: AP external rotation, Grashey, scapular Y, and axillary views of the left shoulder. FINDINGS: No acute cortical disruption or malalignment. No lytic or blastic lesions. Subchondral cyst formation in the greater tuberosity of the left humerus. XR/XR shoulder LT min 2V IMPRESSION: Mild osteoarthrosis, greater tuberosity left humerus. Electronically signed by: Tam Campo MD 09/19/2024 01:09 PM EST Dictated By: Tam Rosado MD Signed By: <Electronically signed by Tam Oropeza MDin OV> 09/19/24 1309 DD/ 1244 TD/TT: 09/19/24 1251 Interventional Physician: Rubi Weston MD IMG XR PROCEDURES Final Result * (ABNORMAL) CBC auto differential (09/19/2024 12:23 PM EST) White Blood Count 10.8 4.8 - 10.8 X10*3/uL [facility] Red Blood Count 4.23 4.20 - 5.50 X10*6/uL [facility] Hemoglobin 11.0(L) 12.0 - 16.0 g/dl [facility] Hematocrit 35.5(L) 37.0 - 47.0 % [facility] Mean Corpuscular Volume 83.9 80.0 - 98.0 fL [facility] Mean Corpuscular Hemoglobin 26.0(L) 27.0 - 33.0 pg [facility] Mean Corpuscular HGB Conc 31.0 31.0 - 35.0 g/dl [facility] Red Cell Distribution Width 12.3 11.0 - 16.0 % [facility] Platelet Count 356 160 - 400 X10*3/uL [facility] Mean Platelet Volume 11.7 9.4 - 12.3 fL [facility] Neutrophils Percent Auto 66.6 45 - 73 % [facility] Imm Gran Pct Auto 0.5(H) 0.0 - 0.4 % [facility] Lymphocytes Percent Auto 24.1 20 - 40 % [facility] Monocytes Percent Auto 6.3 2 - 11 % [facility] Eosinophils Percent Auto 1.7 0 - 4 % [facility] Basophils Percent Auto 0.8 0 - 2 % [facility] NRBC Pct Auto 0.0 0.0 - 0.2 /100WBC [facility] Neutrophils Absolute Auto 7.2 2.0 - 8.3 x10*3/uL [facility] Imm Gran Abs Auto 0.05(H) 0.00 - 0.03 X10*3/uL [facility] Lymphocytes Absolute Auto 2.6 1.2 - 4.9 X10*3/uL [facility] Monocytes Absolute Auto 0.7 0.1 - 1.2 X10*3/uL [facility] Eosinophils Absolute Auto 0.2 0.0 - 0.4 X10*3/uL [facility] Basophils Absolute Auto 0.1 0.0 - 0.2 X10*3/uL [facility] NRBC Abs Auto 0.000 0.0 - 0.012 X10*3/uL [facility] Blood Venous blood specimen / Unknown 09/19/2024 12:23 PM EST 09/19/2024 1:19 PM EST Rubi Weston MD LAB BLOOD ORDERABLES Final Res ult Performing Organization Address [facility] Co de Phone Number [facility] [address] [place] [phone] * Iron And Total Iron Binding Capacity (09/19/2024 12:23 PM EST) Iron 72 30 - 160 mcg/dL [facility] Total Iron Binding Capacity 332 228 - 428 mcg/dL [facility] Percent Iron Saturation 22 15 - 50 % [facility] Unsaturated Iron Binding 260 ug/dL [facility] Blood Venous blood specimen / Unknown 09/19/2024 12:23 PM EST 09/19/2024 1:29 PM EST Rubi Weston MD LAB BLOOD ORDERABLES Final Res ult Performing Organization Address [facility] Co ar Phone Number [facility] [address] [place] [phone] * Lipid Panel, Standard (09/19/2024 12:23 PM EST) Triglycerides 72 <150 mg/dL [facility] Comment:Desirable Triglyceri de: less than 150 mg/dLBorderline High Triglyceride 150-199 mg/dLHigh Triglyceride: 200-499 mg/dLVery High Triglyceride: greater than or equal to 5OO mg/dL Cholesterol 155 <200 mg/dL [facility] Comment:Desirable Cholestero l: less than 200 mg/dLBorderline High Cholesterol: 200-239 mg/dLHigh Cholesterol: greater than 239 mg/dL LDL Cholesterol Calculated 95 <100 mg/dL [facility] Comment:Desirable LDL: less than 100 mg/dLNear Optimal/Above Optimal LDL: 110- 129 mg/dLBorderline High LDL: 130-159 mg/dLHigh LDL: 160-189 mg/dLVery High LDL: greater than or equal to 190 mg/dL HDL Cholesterol 46 >40 mg/dL [facility] Comment:Desirable HDL: great er than 40 mg/dL Note: This HDL assay may give artificially low results in patients with liver disease. Blood Venous blood specimen / Unknown 09/19/2024 12:23 PM EST 09/19/2024 1:29 PM EST Rubi Weston MD LAB BLOOD ORDERABLES Final Res ult [facility] [address] [place] [phone] * POCT HGB A1C (09/19/2024 11:48 AM [...] CARE TEST ENTER/EDIT ORDERABLES Final Result * Albumin, Random Urine W/Creatinine (03/26/2024 11:05 AM EDT) Creatinine, Urine 82.20 mg/dL [facility] Microalbumin Urine <5.0 mg/L H [facility] Microalbum Creatinine Ratio Ur TNP <30 ug/mg cr [facility] Comment:Unable to calculate albumin/creatinine ratio due to lowmicroalbumin or creatinine result. Urine (Urine, Random) 03/26/2024 11:05 AM EDT 03/26/2024 12:54 PM EDT Rubi Weston MD LAB URINE ORDERABLES Final Res ult Performing Organization Address [facility] Co de Phone Number [facility] [address] [place] [phone] * Hepatitis C Antibody with Reflex to HCV, RNA, Quantitative, Real-Time PCR (03/26/2024 11:05 AM EDT) Hepatitis C Antibody Nonreactive Nonreactive [facility] Comment:Antibodies to HCV no t detected; does not exclude early acuteHCV infection. Blood Venous blood specimen / Unknown 03/26/2024 11:05 AM EDT 03/26/2024 1:09 PM EDT Rubi Weston MD LAB BLOOD ORDERABLES Final Res ult Performing Organization Address [facility] Co de Phone Number [facility] [address] [place] [phone] * HIV-1/2 Antigen and Antibodies, Fourth Generation, with Reflexes (03/26/2024 11:05 AM EDT) HIV AB/AG Nonreactive Nonreactive [facility] Comment:HIV-1 p24 Ag and/or HIV-1/HIV-2 Ab not detected.A test result that is nonreactive does not exclude thepossibility of exposure to or infection with HIV-1 and/orHIV-2. Nonreactive results in this assay for individualswith prior exposure to HIV-1 and/or HIV-2 may be due toantigen and antibody levels that are below the limit ofdetection of this assay.The [employer] HIV Ag/Ab Combo assay result andsupplemental assay results should be interpreted inconjunction with the patient's clinical presentation,history and other laboratory results. If the results areinconsistent with clinical evidence, additional testing issuggested to confirm the result. Blood Venous blood specimen / Unknown 03/26/2024 11:05 AM EDT 03/26/2024 1:09 PM EDT Rubi Weston MD LAB BLOOD ORDERABLES Final Res ult Performing Organization Address City/[facility]/ZIP Co de Phone Number [facility] [address] [place] [address] [phone] * THINPREP PAP (11/12/2020 3:01 PM [...] historic and ?? current clinical information. ?? Regrinder Operator: SEE COMMENT [employer] Comment: JXM, CT(ASCP) CT screening location: [address] ??[address] Interpretation/Res ult: [facility] Comment: Negative for intraepithelial lesion or malignancy. Atrophic pattern; predominantly parabasal cells LMP: NONE [facility]IVEN [facility] Prev. BX: NONE [facility]IVEN [facility] Prev. PAP: NONE GIVEN [facility] SOURCE: None given [facility] Statement Of Adequacy: SATISFACTORY FOR EVALUATION [facility] 11/12/2020 3:01 PM EDT Rubi Weston MD LAB PATHOLOGY ORDERABLES Final Result Performing Organization Address [facility]/ZIP Co de Phone Number [facility] [address] * HPV mRNA E6/E7 (11/12/2020 3:01 PM EDT) HPV nRNA E6/E7 Not Detected Not Detected [facility] Comment: Methodology: Supervisor Beet End-Mediated Amplification This assay detects E6/E7 viral messenger RNA (mRNA) from 14 high-risk HPV types (16,18,31,33,35,39,45,51,52,56,58,59,66,68). ? The analytical performance characteristics of this assay have been determined by [employer]. The modifications have not been cleared or approved by the FDA. This assay has been validated pursuant to the CLIA regulations and is used for clinical purposes. ?? For additional information, please refer to http://education.[employer]/faq/QRL346w6 (This link if provided for information/ educational purposes only.) 11/12/2020 3:01 PM EDT us Rubi Weston MD LAB BLOOD ORDERABLES Final Res ult [facility] [address] from Last 3 Months or Most Recently Relevant to Health Maintenance [place] [address] [place] [address] - [employer] Care Teams Beehive Kiln Supervisor Relationship Specialty Start Date End Date Rubi Weston MD [address] [place] [phone] PCP - General Family Medicine 09/28/20
--- OUTSIDE RECORDS SUMMARY | 2024-10-21 11:59 | XMS_ITS | Encounter Summary ---
Author Organization [employer] Address [address] [place] [address] [address] [place] [address] Care Team Providers Care Assistant Professor Of Sociology Name Role Phone Rubi Weston MD Primary Care Provider [phone] Encounter Details Date Type Department Care Team ([facility] st Contact Info) Description 03/18/2024 Telephone [facility] [address] [place], [place] [phone] Rubi Weston MD [address] [place], [place] [phone] Social History Tobacco Use Types Packs/Day Years [...] on filedocumented in this encounter Care Teams Assistant Professor Of Sociology Relationship Specialty Start Date End Date Rubi Weston MD [address] [place] [address] PCP - General Family Medicine 09/28/20 documented as of this encounter
--- OUTSIDE RECORDS SUMMARY | 2024-10-21 11:59 | XMS_ITS | Encounter Summary ---
Author Organization [employer] Address [address] [place] [address] [address] [place] [address] Care Team Providers Care Marionette Performer Name Role Phone Rubi Weston MD Primary Care Provider [phone] Encounter Details Date Type Department Care Team (Late st Contact Info) Description 10/21/2024 Orders Only [facility] [address] [place], [place] [phone] Rubi Weston MD [address] [place], [place] [phone] Social History Tobacco Use Types Packs/Day Years [...] on file documented as of this encounter Procedures Procedure Name Priority Date/Time Associated Diagnosis Comments BI MAMMOGRAM DIAGNOSTIC RIGHT Routine 10/21/2024 10:10 AM EST documented in this encounter Results * Mammogram Diagnostic Right (10/21/2024 10:10 AM EST) Anatomical Region Laterality Modality Breast Right Mammography 10/21/2024 10:1 0 AM EST Narrative 10/21/2024 10:38 AM EST ? [facility] ? [address] ?[place] [address] ? Mammography Report ? Signed ? Patient: Colon,Lakshmi ?MR#: [id number] ? : 1960 ?Acct:[id number] ? Age/Sex: 64 / F ?ADM Date: 10/21/ ? Loc: HO.MAMMO ? Attending Dr: Rubi Weston MD ? Ordering Physician: Rubi Weston ?Results: 3.6MProba ?? yuriy Benign Finding - Short 6 M F/U Suggested ? Date of Service: 10/21/24 ?Follow Up: 6 Month F/U ? Procedure(s): MM diagnostic mammo unilat RT ?? Accession Number(s): [id number] ? cc: Rubi Weston ? EXAMINATION: ?? [...] DD/ 1010 ? TD/TT: 10/21/24 1025 ? Java Portal Developer: ? Procedure Note Brennen, Image - 10/21/2024 [facility] [address] [place] [address] [place] [address] Mammography Report Signed Patient: Lamont Salguero#: [id number] : 1960cct:[id number] Age/Sex: 64 / FADM Date: 10/21/24 Loc: HO.MAMMO Attending Dr: Rubi Weston MD Ordering Physician: Michel Westonults: 3.6MProba yuriy Benign Finding - Short 6 M F/U Suggested Date of Service: 10/21/24Follow Up: 6 Month F/U Procedure(s): MM diagnostic mammo unilat RT Accession Number(s): [id number] cc: Rubi Weston EXAMINATION: MM DIAGNOSTIC DIGITAL [...] 10/21/24 1035 DD/ 1010 TD/TT: 10/21/24 1025 Java Portal Developer: Rubi Weston MD IMG BI PROCEDURES Final Result documented in this encounter Visit Diagnoses Not on filedocumented in this encounter Care Teams Marionette Performer Relationship Specialty Start Date End Date Rubi Weston MD [address] [place] [address] PCP - General Family Medicine 09/28/20 documented as of this encounter
--- OUTSIDE RECORDS SUMMARY | 2024-10-21 11:59 | XMS_ITS | Encounter Summary ---
Author Organization [employer] [facility] Address [address] [place] [address] [address] [place] [address] Care Team Providers Care Clinic Specialist Name Role Phone Sangeetha Weston MD Primary Care Provider [phone] Encounter Details Date Type Department Care Team (Latest Contact Info) Description 10/07/2024 9:15 AM EST Procedure Visit [facility] [address] [place], [place] [phone] Sangeetha Weston MD [address] [place], [place] [phone] Localized primary osteoarthritis of left shoulder region (Primary Dx); Urinary tract infection without hematuria, site unspecified Social History Tobacco Use Types Packs/Day Years [...] Mass Index 33.3 10/07/2024 9:40 AM EST documented in this encounter Progress Notes * Sangeetha Weston MD - 10/07/2024 9:15 AM ESTAssociated Order(s): Arthrocentesis Post-Procedure Diagnose(s): 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 year old female who presents for procedure . Denies recent illness, ER visit, or hospitalization. Acute Concerns: She is having dysuria x 3 days, neg N/V/fever/low back pain, UA positive for nitrites and LE. This is incidental to her L shoulder pain, which her Xray was read at mild OA of greater tuberosity of the humerus. Arthrocentesis Date/Time: 10/12/2024 10:05 AM Performed by: Sangeetha Weston MD Authorized by: Sangeetha Wetson MD Consent: Consent obtained: Written Consent given by: Patient Risks, benefits, and alternatives were discussed: yes Risks discussed: Bleeding and infection Alternatives discussed: No treatment, delayed treatment, alternative treatment and observation [place] protocol: Procedure explained and questions answered to patient or proxy's satisfaction: yes Relevant documents present and verified: yes Test results available: yes Imaging studies available: yes Site/side marked: yes Immediately prior to procedure, a time out was called: yes Patient identity confirmed: Verbally with patient Location: Location: Shoulder Shoulder: L glenohumeral Anesthesia: Anesthesia method: None Procedure details: Needle gauge: 22 G Ultrasound guidance: no Approach: Lateral Steroid injected: yes Post-procedure details: Dressing: Adhesive bandage Procedure completion: Tolerated well, no immediate complications Comments: Injected 40mg Kenalog and 2cc of xylocaine 2% without epi into the L subacromial space with lateralapproach, this approach was taken due to findings of glenohumeral arthritis. FINDINGS: No acute cortical disruption or malalignment. No lytic or blastic lesions. Subchondral cyst formation in the greater tuberosity of the left humerus. XR/XR shoulder LT min 2V IMPRESSION: Mild osteoarthrosis, greater tuberosity left humerus. Interim Updates: Grief 10/2023 Has therapist that she talks to every week DM2 Diagnosed 04/2023 A1C 5.8 Taking Metformin 500mg XR at night Today A1C is 5.8 [place]- next year at [place] No polyuria, polydipsia, weight loss, nerve pain Lab Results Component Value Date EGFR 58 05/06/2024 HTN <140/90 at home Associated symptoms include anxiety, and irregular heartbeat and shortness of breath. Negatives include no chest pain, fever, syncope, vomiting or weakness. Taking Lisinopril/hydrochlorothiazide 20-25 and Metoprolol 25mg XL 02/[address] Delgado 7 day Holter monitor-- sinus rhtym with average HR 72. We will also inject echocardiogram to rule out any structural heart issues. The 10-year ASCVD risk score (Ishan MENDEZ, et al., 2019) is: 13% Values used to calculate the score: Age: 64 years Sex: Female Is Non- : No Diabetic: Yes Tobacco smoker: No Systolic Blood Pressure: 142 mmHg Is BP treated: Yes HDL Cholesterol: 46 mg/dL Total Cholesterol: 155 mg/dL declines taking statin due to potential risk of developing dementia L hip OA 11/2023 saw Rheum, trochanteric bursitis Uses muscle relaxer prn Trial Cymbalta 20mg Iron deficiency anemia On ferrous sulfate and Vit C, runs 06/18 normally Lab Results Component Value Date HGB 11.0 (L) 09/19/2024 HGB 10.9 (A) 01/28/2024 HGB 11.1 (L) 04/12/2023 HGB 10.8 (L) 11/17/2022 HGB 10.9 (L) 03/30/2022 HGB 10.2 (L) 02/16/2021 HGB 10.1 (L) 02/11/2021 Health maintenance Pap- last 10/2020 Colon- Cologuard 04/2022 NEG Mammo -02/2024, with need for f/u imaging Imms-due for Td and zoster, PCV DEXA at 66 Patient Active Problem List Diagnosis Abscess of buttock Atypical lobular hyperplasia of breast Essential hypertension Fibromyalgia Iron deficiency anemia Obesity Primary osteoarthritis of left hip Palpitation Type 2 diabetes mellitus without complication, without long-term current use of insulin ([facility]) Vaginal itching History of laparoscopic appendectomy History reviewed. No pertinent surgical history. No family history on file. Social History Social History Narrative Not on file Review of Systems Constitutional: Negative. Respiratory: Negative. Cardiovascular: Negative. Gastrointestinal: Negative. Genitourinary: Positive for dysuria and urgency. Musculoskeletal: Positive for arthralgias. OBJECTIVE: Vitals: 10/07/24 0940 BP: (!) 140/69 BP Location: Left arm Patient Position: Sitting BP Cuff Size: Adult Pulse: 72 Resp: 16 Temp: 97.4 ??F (36.3 ??C) TempSrc: Temporal SpO2: 97% Weight: 188 lb (85.3 kg) Height: 5' 3 (1.6 m) Physical Exam Vitals reviewed. Constitutional: Appearance: Normal appearance. HENT: Head: Normocephalic and atraumatic. Cardiovascular: Rate and Rhythm: Normal rate and regular rhythm. Pulses: Normal pulses. Heart sounds: Normal heart sounds. Abdominal: General: There is no distension. Palpations: Abdomen is soft. Tenderness: There is no abdominal tenderness. There is no right CVA tenderness or left CVA tenderness. Musculoskeletal: General: Tenderness present. Skin: General: Skin is warm and dry. Neurological: Mental Status: She is alert. Psychiatric: Mood and Affect: Mood normal. Behavior: Behavior normal. ASSESSMENT/PLAN Problem List Items Addressed This Visit None Visit Diagnoses Localized primary osteoarthritis of left shoulder region - Primary Relevant Medications triamcinolone acetonide (Kenalog-40) injection 40 mg lidocaine (Xylocaine) 2 % injection 40 mg Other Relevant Orders Arthrocentesis (Completed) Urinary tract infection without hematuria, site unspecified Relevant Orders POCT Urinalysis (Completed) Follow Up: per recall or sooner prn Allergies Allergen Reactions Doxycycline Other reaction(s): nausea: vomiting, migraine Aspirin Rash Current Outpatient Medications: Alcohol Swabs (Alcohol Pads) 70 % pads, Use as directed on skin, Disp: 100 each, Rfl: 11 Ascorbic Acid (vitamin C) 500 MG tablet, TAKE 1 TABLET BY MOUTH ONCE DAILY WITH IRON, Disp: 90 tablet, Rfl: 1 Blood Glucose Monitoring Suppl (FreeStyle [place] Lite) w/Device kit, Use to test blood sugar bid dx dm, Disp: 1 kit, Rfl: 0 cholecalciferol VITAMIN D (Vitamin D-3) 50 MCG (1999 UT) capsule, Take 1 capsule (50 mcg) by mouth Once per day., Disp: 90 capsule, Rfl: 3 cholecalciferol VITAMIN D (Vitamin D-3) 50 MCG (1999 UT) capsule, Take 1 capsule by mouth Once per day., Disp: , Rfl: clotrimazole (Lotrimin) 1 % cream, APPLY CREAM TOPICALLY TWICE DAILY, Disp: , Rfl: cyclobenzaprine (Flexeril) 5 MG tablet, Take 5 mg by mouth if needed each day for muscle spasms., Disp: , Rfl: ferrous sulfate 325 (65 Fe) MG EC tablet, TAKE 1 TABLET BY MOUTH ONCE DAILY BREAKFAST. DO NOT CRUSH, CHEW OR SPLIT., Disp: 90 tablet, Rfl: 1 fish oil ([place]-3) 500 MG capsule, Take 1 capsule (500 mg) by mouth Once per day., Disp: 90 capsule, Rfl: 3 fluticasone (Flonase) 50 MCG/ACT nasal spray, USE 1 SPRAY IN EACH NOSTRIL TWICE DAILY FOR 10 DAYS, Disp: , Rfl: FreeStyle lancets, 1 each by Other route 2 times daily. Use bid, dx type 2 diabetes, Disp: 60 each,Rfl: 11 glucose blood (FREESTYLE LITE) test strip, Use bid. Dx diabetes, Disp: 60 each, Rfl: 11 ibuprofen 800 MG tablet, Take 1 tablet (800 mg) by mouth if needed in the morning and at bedtime for moderate pain., Disp: 60 tablet, Rfl: 3 lidocaine (Lidoderm) 5 % patch, Apply 1 patch topically in the morning., Disp: 30 patch, Rfl: 1 lisinopril-hydroCHLOROthiazide 20-25 MG tablet, Take 1 tablet by mouth Once per day., Disp: 90 tablet, Rfl: 3 metFORMIN XR (Glucophage-XR) 500 MG 24 hr tablet, Take 1 tablet (500 mg) by mouth with evening meal. Do not crush, chew, or split. (Patient taking differently: Take 500 mg by mouth if needed each day. Do not crush, chew, or split.), Disp: 90 tablet, Rfl: 3 metoprolol succinate XL (Toprol-XL) 25 MG 24 hr tablet, Take 1 tablet (25 mg) by mouth Once per day., Disp: 90 tablet, Rfl: 3 Sharps Container (Sharps Tufting Supervisor) misc, 1 Units if needed in the morning and at bedtime (sharps).Dispose used sharps in container., Disp: 1 each, Rfl: 3 urea (Carmol) 10 % cream, Apply topically if needed for dry skin (feet and hands)., Disp: 453 g, Rfl: 2 Current Facility-Administered Medications: lidocaine (Xylocaine) 2 % injection 40 mg, 2 mL, Injection, Once, Sangeetha Weston MD triamcinolone acetonide (Kenalog-40) injection 40 mg, 40 mg, Intra-articular, Once, Sangeetha Weston MD Uzbek Translation: Provided by [facility] staff member SOPHY Thomas documented in this encounter Miscellaneous Notes * Addendum Note - Sangeetha Weston MD - 10/07/2024 9:15 AM ESTAddended by: SANGEETHA WESTON on: 10/15/2024 09:54 AM Modules accepted: Orders documented in this encounter Plan of Treatment Not on file documented as of this encounter Procedures Procedure Name Priority Date/Time Associated Diagnosis Comments MS ARTHROCENTESIS ASPIR&/INJ MAJOR JT/BURSA W/O US Routine 10/12/2024 10:05 AM EST Localized primary osteoarthritis of left shoulder region POCT URINALYSIS DIPSTICK Routine 10/07/2024 10:14 AM EST Urinary tract infection without hematuria, site unspecified documented in this encounter Results * MS ARTHROCENTESIS ASPIR&/INJ MAJOR JT/BURSA W/O US (10/12/2024 10:05 AM EST) Narrative Sangeetha Weston MD - 10/12/2024 10:05 AM EST Sangeetha Weston MD ? 10/12/2024 10:12 AM Arthrocentesis Date/Time: 10/12/2024 10:05 AM Performed by: Sangeetha Weston MD Authorized by: Sangeetha Weston MD ?? Consent: ??Consent obtained: ??Written ??Consent given by: ??Patient ??Risks, benefits, and alternatives were discussed: yes ?Risks discussed: ??Bleeding and infection ??Alternatives discussed: ??No treatment, delayed treatment, alternative treatment and observation [place] protocol: ??Procedure explained and questions answered to [...] taken due to findings of glenohumeral arthritis. Sangeetha Weston MD IN CLINIC/BEDSIDE ORDERABLES F inal [...] Media Lot # [id number] Lot# Expiration Date [id number] Urine 10/07/2024 10:1 4 AM EST Sangeetha Weston MD POINT OF CARE TEST ENTER/EDIT ORDERABLES Final Result documented in this encounter Visit Diagnoses Diagnosis Localized primary osteoarthritis of left shoulder region- Primary Urinary tract infection without hematuria, site unspecified documented in this encounter Care Teams Clinic Specialist Relationship Specialty Start Date End Date Sangeetha Weston MD [address] [place] [address] PCP - General Family Medicine 09/28/20 documented as of this encounter
--- OUTSIDE RECORDS SUMMARY | 2024-10-21 11:59 | XMS_ITS | Encounter Summary ---
Author Organization [employer] [facility] Address [address] [place] [address] [address] [place] [address] Care Team Providers Care Senior It Security Analyst Name Role Phone Rubi Weston MD Primary Care Provider [phone] Reason for Visit * Reason Onset Date Comments Results 04/25/2023 Encounter Details Date Type Department Care Team (Late st Contact Info) Description 04/25/2023 Telephone [facility] [address] [place], [place] [phone] Rubi Weston MD [address] [place], [place] [phone] Results Social History Tobacco Use Types Packs/Day [...] now. Advised to give call back on [phone] if any questions or concerns. * Telephone Encounter - Soumya Harden - 04/25/2023 9:25 AM EDT Tc from pt requesting a call in regards to recent lab results. Please contact pt at [phone] documented in this encounter Plan of Treatment Not on file documented as of this encounter Visit Diagnoses Not on filedocumented in this encounter Care Teams Senior It Security Analyst Relationship Specialty Start Date End Date Rubi Weston MD [address] [place] [address] PCP - General Family Medicine 09/28/20 documented as of this encounter
--- OUTSIDE RECORDS SUMMARY | 2024-10-21 11:59 | XMS_ITS | Encounter Summary ---
Author Organization [employer] [facility] Address [address] [facility] [address] [place] [address] Care Team Providers Care Lipstick Molder Name Role Phone Rubi Weston MD Primary Care Provider [phone] Encounter Details Date Type Department Care Team (Latest Contact Info) Description 10/07/2024 Travel Social History Tobacco Use Types Packs/Day [...] on filedocumented in this encounter Care Teams Lipstick Molder Relationship Specialty Start Date End Date Rubi Weston MD [address] [place] [address] PCP - General Family Medicine 09/28/20 documented as of this encounter
--- OUTSIDE RECORDS SUMMARY | 2024-10-21 11:59 | XMS_ITS | Clinical Summary ---
Author Organization [address] [place] [address] Address [address] [place] [address] Phone Care Team Providers Care Warhead Maintenance Specialist Name Role Phone Physician, Pcp Unknown Primary Care Provider Shelly vailable Allergies No known active allergies Medications Hospital, Clinic, or Other Facility Administered Medication Ordered Dose Route Frequency Start Date End Date Status lidocaine (PF) (XYLOCAINE-MPF) 1 % injection 0.5 mLIndications:Planta r fasciitis .5 mL inj Once PRN Procedure 10/06/2024 10/06/2024 Ended triamcinolone acetonide (KENALOG-40) 40 mg/mL injection 40 mgIndications:Planta r fasciitis 40 mg IAtc Once PRN Procedure 10/06/2024 10/06/2024 Ended Encounters Date Type Department Care Team Description 10/17/2024 Telephone Orthopedic Surgery [facility] [address] [phone] Meño Wilcox DPM 10/06/2024 1:30 PM EST Office Visit Orthopedic Surgery [facility] [address] [phone] Meño Wilcox DPM Controlled type 2 diabetes with neuropathy (CMS/HCC) (Primary Dx); Equinus contracture of right ankle; Dermatophytosis, nail; Plantar fasciitis from Last 3 Months Social History Tobacco Use Types Packs/Day Years Used Date Smoking Tobacco: Never Assessed Comments Unknown Sex and Gender Information Value Date Recorded Sex Assigned at Not on file Legal Sex Female 1:31 PM EST Gender Identity Not on file Sexual Orientation Not on file Last Filed Vital Signs Vital Sign Reading Time Taken Comments Blood Pressure - - Pulse - - Temperature - - Respiratory Rate - - Oxygen Saturation - - Inhaled Oxygen Concentration - - Weight 65.8 kg (145 lb) 10/06/2024 1:30 PM EST Height 165.1 cm (5' 5 ) 10/06/2024 1:30 PM EST Body Mass Index 24.13 10/06/2024 1:30 PM EST Plan of Treatment Upcoming Encounters Date Type Department Care Team (Late st Contact Info) Description 10/22/2024 1:30 PM EST Office Visit Orthopedic Surgery - [place] 250 175 [facility] 250 [place] [phone] Meño Wilcox, MICKEY [address] [facility] 250 [place] [address] Health Maintenance Due Date Last Done Comments Breast Cancer Screening 1961 Diabetes: Annual Foot Exam 1971 Diabetes: Annual Retina Eye Exam 1971 Cervical Cancer Screening: Pap Smear 1982 Pneumococcal Vaccine: 50+ Years (2 of 2 - PCV) 07/05/2002 07/05/2001 Pneumococcal Vaccine: Pediatrics (0 to 5 Years) and At-Risk Patients (6 to 64 Years) (2 of 2 - PCV) 07/05/2002 07/05/2001 Zoster Vaccines (1 of 2) 2011 RSV Immunization Patients 60+ Years Old (1 - Risk 60-74 years 1-dose series) 2021 DTaP,Tdap,and Td Vaccines (3 - Td or Tdap) 03/12/2022 03/12/2012, 08/20/1988 COVID-19 Vaccine ( - season) 2024 Influenza Vaccine (#1) 2024 , 05/27/2019, 10/03/2018, Additional history exists Depression Screening 06/27/2024 Medicare Annual Wellness Visit 06/27/2024 Social Influencers of Health Screening 06/27/2024 Diabetes: Annual Urine Albumin-Creatinine Ratio (uACR) 10/06/2024 Diabetes: Blood Sugar Control Test (HGBA1C) 03/19/2025 09/19/2024 Colorectal Cancer Screening: FIT-DNA (Cologuard) 04/11/2025 04/11/2022 Diabetes: Annual GFR (Glomerular Filtration Rate) 10/20/2025 10/20/2024 Hypertension/CHF/CAD Annual BMP Blood Test 10/20/2025 10/20/2024 Cholesterol Screening (Lipid Panel) 09/19/2029 09/19/2024 Hepatitis B Vaccines Completed 11/16/2009, 10/22/2007, 02/28/2007 [...] patient's age to complete this topic Meningococcal B Vacine Aged Out No lo nger eligible based on patient's age to complete this topic RSV Immunization Patients Under 20 months Aged Out No longer eligible based on patient's age to complete this topic Varicella Vaccines Aged Out No longer eligible based on patient's age to complete this topic Procedures Procedure Name Priority Date/Time Associated Diagnosis Comments COMPREHENSIVE METABOLIC PANEL Routine 10/20/2024 11:21 AM EST Dermatophytosis of nail INJECTION TENDON OR LIGAMENT Routine 10/06/2024 1:30 PM EST Plantar fasciitis from Last 3 Months Results * (ABNORMAL) Comprehensive metabolic panel (10/20/2024 11:21 AM EST) Sodium 139 133 - 145 mmol/L LAB CHEMISTRY METHOD 10/20/2024 2:53 PM EST [facility] Potassium 4.5 3.5 - 5.5 mmol/L LAB CHEMISTRY METHOD 10/20/2024 2:53 PM EST [facility] Chloride 104 96 - 110 mmol/L LAB CHEMISTRY METHOD 10/20/2024 2:53 PM EST [facility] CO2 28 21 - 32 mmol/L LAB CHEMISTRY METHOD 10/20/2024 2:53 PM [facility] Anion Gap 7 3 - 11 LAB CHEMISTRY METHOD 10/20/2024 2:53 PM [facility] Glucose 175(H) 70 - 100 mg/dL LAB CHEMISTRY METHOD 10/20/2024 2:53 PM [facility] BUN 18 5 - 25 mg/dL LAB CHEMISTRY METHOD 10/20/2024 2:53 PM [facility] Creatinine 1.15(H) 0.50 - 1.10 mg/dL LAB CHEMISTRY METHOD 10/20/2024 2:53 PM [facility] eGFR 54(L) >=60 mL/min/1. 73m2 LAB CHEMISTRY METHOD 10/20/2024 2:53 PM [facility] Comment:Calculation based on the??Chronic Kidney Disease Epidemiology Collaboration (CKD-EPI) equation refit??without adjustment for race. BUN/Creatinine Ratio 15.7 LAB CHEMISTRY METHOD 10/20/2024 2:53 PM [facility] Calcium 9.8 8.5 - 10.5 mg/dL LAB CHEMISTRY METHOD 10/20/2024 2:53 PM [facility] AST (SGOT) 14 10 - 42 unit/L LAB CHEMISTRY METHOD 10/20/2024 2:53 PM [facility] ALT (SGPT) 25 10 - 60 unit/L LAB CHEMISTRY METHOD 10/20/2024 2:53 PM [facility] Alkaline Phosphatase 77 42 - 121 unit/L LAB CHEMISTRY METHOD 10/20/2024 2:53 PM [facility] Total Protein 7.2 6.0 - 8.0 g/dL LAB CHEMISTRY METHOD 10/20/2024 2:53 PM [facility] Albumin 3.7 3.2 - 5.0 g/dL LAB CHEMISTRY METHOD 10/20/2024 2:53 PM [facility] Total Bilirubin 0.4 0.0 - 1.4 mg/dL LAB CHEMISTRY METHOD 10/20/2024 2:53 PM EST [facility] Blood Venous blood specimen / Unknown Venipuncture / Unknown 10/20/2024 11:21 AM EST 10/20/2024 11:21 AM EST us Meño Wilcox DPM LAB BLOOD ORDERABLES Final Result [facility] [address] [place] [address], * Injection tendon or ligament (10/06/2024 1:30 PM EST) Narrative Meño Wilcox DPM - 10/06/2024 1:30 PM EST Meño Wilcox DPM ? 10/06/2024 ??6:40 PM Injection tendon or ligament Indications: pain Details: 25 G needle Medications: 0.5 mL lidocaine (PF) 1 %; 40 mg triamcinolone acetonide 40 mg/mL Informed Consent: ??Laterality: ??Bilateral us Meño Wilcox DPM IN CLINIC/BEDSIDE ORDERABLE S Final Result from Last 3 Months Insurance MEDICAID - [place] [employer] MEDICARE Member Subscriber Plan / Payer (Ef fective 2023-Present) Name:Wanda Salgueroa I Relation to Subscriber:Self Name:Colon Lakshmi I Payer ID:[id number] Group ID:[id number] Type:Not on file Address: [address] [place] [address] Care Teams Warhead Maintenance Specialist Relationship Specialty Start Date End Date Physician, Pcp Unknown PCP - General 10/02/24
--- OUTSIDE RECORDS SUMMARY | 2024-10-21 11:59 | XMS_ITS | Encounter Summary ---
Author Organization [facility] Address [address] [place] [phone] Care Team Providers Care Body Builder Name Role Phone Physician, Pcp Unknown Primary Care Provider Shelly vailable Encounter Details Date Type Department Care Team (Late st Contact Info) Description 10/17/2024 Telephone Orthopedic Surgery - [place] [address] [address] Meño Wilcox DPM [address] [address] Social History Tobacco Use Types Packs/Day Years Used Date Smoking Tobacco: Never Assessed Comments Unknown Sex and Gender Information Value Date Recorded Sex Assigned at Not on file Legal Sex Female 1:31 PM EST Gender Identity Not on file Sexual Orientation Not on file documented as of this encounter Progress Notes * Amita Jamison MA - 10/17/2024 11:21 AM EST Called patient I put in a lab order for a CMP to check liver enzymes before prescribing terbinafine, quantum came back positive. Patient is aware of this request. I did ask her if she takes tylenol or advil a lot Only sometimes I asked she not take any before her labs documented in this encounter Plan of Treatment Upcoming Encounters Date Type Department Care Team (Late Contact Info) Description 10/22/2024 1:30 PM EST Office Visit Orthopedic Surgery - [place] [address] [phone] Meño Wilcox DPM [address] [address] documented as of this encounter Results * (ABNORMAL) Comprehensive metabolic panel (10/20/2024 11:21 AM EST) Sodium 139 133 - 145 mmol/L LAB CHEMISTRY METHOD 10/20/2024 2:53 PM [facility] Potassium 4.5 3.5 - 5.5 mmol/L LAB CHEMISTRY METHOD 10/20/2024 2:53 PM [facility] Chloride 104 96 - 110 mmol/L LAB CHEMISTRY METHOD 10/20/2024 2:53 PM [facility] CO2 28 21 - 32 mmol/L LAB CHEMISTRY METHOD 10/20/2024 2:53 PM [facility] Anion Gap 7 3 - 11 LAB CHEMISTRY METHOD 10/20/2024 2:53 PM [facility] Glucose 175(H) 70 - 100 mg/dL LAB CHEMISTRY METHOD 10/20/2024 2:53 PM [facility] BUN 18 5 - 25 mg/dL LAB CHEMISTRY METHOD 10/20/2024 2:53 PM [facility] Creatinine 1.15(H) 0.50 - 1.10 mg/dL LAB CHEMISTRY METHOD 10/20/2024 2:53 PM [facility] eGFR 54(L) >=60 mL/min/1. 73m2 LAB CHEMISTRY METHOD 10/20/2024 2:53 PM [facility] Comment:Calculation based on the??Chronic Kidney Disease Epidemiology Collaboration (CKD-EPI) equation refit??without adjustment for race. BUN/Creatinine Ratio 15.7 LAB CHEMISTRY METHOD 10/20/2024 2:53 PM [facility] Calcium 9.8 8.5 - 10.5 mg/dL LAB CHEMISTRY METHOD 10/20/2024 2:53 PM [facility] AST (SGOT) 14 10 - 42 unit/L LAB CHEMISTRY METHOD 10/20/2024 2:53 PM [facility] ALT (SGPT) 25 10 - 60 unit/L LAB CHEMISTRY METHOD 10/20/2024 2:53 PM EST [facility] Alkaline Phosphatase 77 42 - 121 unit/L LAB CHEMISTRY METHOD 10/20/2024 2:53 PM [facility] Total Protein 7.2 6.0 - 8.0 g/dL LAB CHEMISTRY METHOD 10/20/2024 2:53 PM EST [facility] Albumin 3.7 3.2 - 5.0 g/dL LAB CHEMISTRY METHOD 10/20/2024 2:53 PM [facility] Total Bilirubin 0.4 0.0 - 1.4 mg/dL LAB CHEMISTRY METHOD 10/20/2024 2:53 PM [facility] Blood Venous blood specimen / Unknown Venipuncture / Unknown 10/20/2024 11:21 AM EST 10/20/2024 11:21 AM EST us Meño Wilcox DPM LAB BLOOD ORDERABLES Final Result [facility] [address] [place] [address], documented in this encounter Visit Diagnoses Diagnosis Dermatophytosis of nail- Primary documented in this encounter Care Teams Body Builder Relationship Specialty Start Date End Date Physician, Pcp Unknown PCP - General 10/02/24 documented as of this encounter
--- OUTSIDE RECORDS SUMMARY | 2024-10-21 11:59 | XMS_ITS | Encounter Summary ---
Author Organization [employer] Address [address] [place] [address] 7[address] [place] [address] Care Team Providers Care Operations Administrative Assistant Name Role Phone Rubi Weston MD Primary Care Provider [phone] Encounter Details Date Type Department Care Team ([facility] st Contact Info) Description 05/30/2024 Telephone [facility] 230 [place], [place] [phone] Rubi Weston MD 230 [place], [place] [phone] Social History Tobacco Use Types Packs/Day Years [...] on filedocumented in this encounter Care Teams Operations Administrative Assistant Relationship Specialty Start Date End Date Rubi Weston MD [address] [place] [address] PCP - General Family Medicine 09/28/20 documented as of this encounter
== END 2024-10-21 10:03 | disposition home or self-care (01) ==
LOC: HO.MAMMO 10:02
PROVIDERS: PCP General Practice; Visit Provider General Practice
DX: R92.1 Mammographic calcification found on diagnostic imaging of breast (principal)
CPT/HCPCS: 77062; 77065

== ENCOUNTER 2025-03-25 10:28 | Outpatient (REF) | payer OTHER, SELFPAY ==
--- NOTE | ~2025-03-25 | XR_ITS ---
EXAMINATION: XR LUMBAR SPINE 2-3 VIEWS HISTORY: chronic low BP COMPARISON: Comparison is made with the prior examination dated 03/29/2018. FINDINGS: AP, lateral, and coned down views of the lumbar spine are submitted. Osseous mineralization is normal. Five nonrib-bearing lumbar vertebral bodies are identified, maintaining normal height without evidence of fracture. There is slight spondylolisthesis of L4 on L5. There is mild degenerative disc disease with disc space narrowing and osteophyte formation. The posterior elements are intact. The visualized paraspinal soft tissues are unremarkable. XR/XR lumbar spine 2-3V IMPRESSION: Mild degenerative disc disease. Slight spondylolisthesis of L4 on L5. Electronically signed by: Daniel Wilson MD 03/25/2025 11:22 AM EDT
--- OUTSIDE RECORDS SUMMARY | 2025-03-25 11:08 | XMS_ITS | Clinical Summary ---
Author Organization [address] [place] [address] Address [address] [place] [address] Phone Care Team Providers Care Public Area Attendant Name Role Phone Physician, Pcp Unknown Primary Care Provider Shelly vailable Allergies No known active allergies Medications No known medications Encounters Date Type Department Care Team Description 01/22/2025 2:00 PM EDT Office Visit Orthopedic Surgery [facility] 250 175 [facility] 250 [place] [address] Meño Wilcox DPM Controlled type 2 diabetes with neuropathy (CMS/HCC V24, CMS/HCC V28) (Primary Dx); Dermatophytosis of nail; Equinus contracture of right ankle; Plantar fasciitis from Last 3 Months Social [...] - - Weight 65.8 kg (145 lb) 01/22/2025 1:44 PM EDT Height 165.1 cm (5' 5 ) 01/22/2025 1:44 PM EDT Body Mass Index 24.13 01/22/2025 1:44 PM EDT Plan of Treatment Health Maintenance Due Date Last Done Comments Breast Cancer Screening 1961 Diabetes: Annual Foot Exam 1971 Diabetes: Annual Retina Eye Exam 1971 Cervical Cancer Screening: Pap Smear 1982 Pneumococcal Vaccine: 50+ Years (2 of 2 - PCV) 07/05/2002 07/05/2001 Zoster Vaccines (1 of 2) 2011 RSV Immunization Adult Patients (1 - Risk 60-74 years 1-dose series) 2021 DTaP,Tdap,and Td Vaccines (3 - Td or Tdap) 03/12/2022 03/12/2012, 08/20/1988 COVID-19 Vaccine (1 - 2023- season) 2024 Medicare Annual Wellness Visit 06/27/2024 Social Influencers of Health Screening 06/27/2024 Depression Screening 08/20/2024 Diabetes: Annual Urine Albumin-Creatinine Ratio (uACR) 10/06/2024 Diabetes: Blood Sugar Control Test (HGBA1C) 03/19/2025 09/19/2024 Influenza Vaccine (#1) 2025 , 05/27/2019, 10/03/2018, Additional history exists Diabetes: Annual GFR (Glomerular Filtration Rate) 10/20/2025 10/20/2024 Hypertension/CHF/CAD Annual BMP Blood Test 10/20/2025 10/20/2024 Colorectal Cancer Screening: FIT-DNA (Cologuard) 11/05/2027 11/04/2024, 04/11/2022 Cholesterol Screening (Lipid Panel) 09/19/2029 09/19/2024 Hepatitis [...] age to complete this topic Meningococcal B Vaccine Aged Out No l onger eligible based on patient's age to complete this topic RSV Immunization Patients Under 20 months Aged Out No longer eligible based on patient's age to complete this topic Varicella Vaccines Aged Out No longer eligible based on patient's age to complete this topic Procedures Procedure Name Priority Date/Time Associated Diagnosis Comments INJECTION TENDON OR LIGAMENT Routine 01/22/2025 2:00 PM EDT Plantar fasciitis COMPREHENSIVE METABOLIC PANEL Routine 10/20/2024 11:21 AM EST Dermatophytosis of nail from Last 3 Months or Most Recently Relevant to Health Maintenance Results * Injection tendon or ligament (01/22/2025 2:00 PM EDT) Narrative Meño Wilcox DPM - 01/22/2025 2:00 PM EDT Meño Wilcox DPM 01/22/2025 6:36 PM Injection tendon or ligament Indications: pain Details: 25 G needle Medications: 0.5 mL lidocaine (PF) 1 %; 40 mg triamcinolone acetonide 40 mg/mL Informed Consent: Laterality: Left us Meño Wilcox DPM IN CLINIC/BEDSIDE ORDERABLE S Final Result * (ABNORMAL) Comprehensive metabolic panel (10/20/2024 11:21 AM EST) Sodium 139 133 - 145 mmol/L LAB CHEMISTRY METHOD 10/20/2024 2:53 PM [facility] Potassium 4.5 3.5 - 5.5 mmol/L LAB CHEMISTRY METHOD 10/20/2024 2:53 PM [facility] Chloride 104 96 - 110 mmol/L LAB CHEMISTRY METHOD 10/20/2024 2:53 PM [facility] CO2 28 21 - 32 mmol/L LAB CHEMISTRY METHOD 10/20/2024 2:53 PM [facility] Anion Gap 7 3 - 11 LAB CHEMISTRY METHOD 10/20/2024 2:53 PM [facility] Glucose 175(H) 70 - 100 mg/dL LAB CHEMISTRY METHOD 10/20/2024 2:53 PM [facility] BUN 18 5 - 25 mg/dL LAB CHEMISTRY METHOD 10/20/2024 2:53 PM [facility] Creatinine 1.15(H) 0.50 - 1.10 mg/dL LAB CHEMISTRY METHOD 10/20/2024 2:53 PM [facility] eGFR 54(L) >=60 mL/min/1. 73m2 LAB CHEMISTRY METHOD 10/20/2024 2:53 PM [facility] Comment:Calculation based on the Chronic Kidney Disease Epidemiology Collaboration (CKD-EPI) equation refit without adjustment for race. BUN/Creatinine Ratio 15.7 LAB CHEMISTRY METHOD 10/20/2024 2:53 PM [facility] Calcium 9.8 8.5 - 10.5 mg/dL LAB CHEMISTRY METHOD 10/20/2024 2:53 PM [facility] AST (SGOT) 14 10 - 42 unit/L LAB CHEMISTRY METHOD 10/20/2024 2:53 PM [facility] ALT (SGPT) 25 10 - 60 unit/L LAB CHEMISTRY METHOD 10/20/2024 2:53 PM [facility] Alkaline Phosphatase 77 42 - 121 unit/L LAB CHEMISTRY METHOD 10/20/2024 2:53 PM [facility] Total Protein 7.2 6.0 - 8.0 g/dL LAB CHEMISTRY METHOD 10/20/2024 2:53 PM [facility] Albumin 3.7 3.2 - 5.0 g/dL LAB CHEMISTRY METHOD 10/20/2024 2:53 PM [facility] Total Bilirubin 0.4 0.0 - 1.4 mg/dL LAB CHEMISTRY METHOD 10/20/2024 2:53 PM [facility] Blood Venous blood specimen / Unknown Venipuncture / Unknown 10/20/2024 11:21 AM EST 10/20/2024 11:21 AM EST us Meño Wilcox DPM LAB BLOOD ORDERABLES Final Result [facility] [address] [place] [address], [place] [phone] from Last 3 Months or Most Recently Relevant to Health Maintenance Insurance MEDICAID - [place] [employer] MEDICARE Member Subscriber Plan / Payer (Ef fective 2023-Present) Name:LAKSHMI SALGUERO Relation to Subscriber:Self Name:Lakshmi Salguero I Payer ID:[id number] Group ID:[id number] Type:Not on file Address: [address] [place] [address] Care Teams Public Area Attendant Relationship Specialty Start Date End Date Physician, Pcp Unknown PCP - General 10/02/24
--- OUTSIDE RECORDS SUMMARY | 2025-03-25 11:08 | XMS_ITS | Encounter Summary ---
Author Organization [employer] Address [address] [place] [address] 7 [place] [address] Care Team Providers Care Academic Support Center Director Name Role Phone Rubi Weston MD Primary Care Provider [phone] Reason for Visit * Reason Onset Date Comments Nurse Triage 03/24/2025 Encounter Details Date Type Department Care Team ([facility] st Contact Info) Description 03/24/2025 Telephone [facility] 230 [place] [address] Rubi Weston MD 230 [place], [place] [phone] Nurse Triage Social History Tobacco Use Types Packs/Day Years [...] the past 12 months, has t he [employer] threatened to shut off services in your [...] encounter Miscellaneous Notes * Telephone Encounter - Makenna Hernandez RN - 03/24/2025 1:29 PM EDT called pt to triage, spoke to pt. through [employer] Intelligence Support Officer. pt states several days duration of low back pain. pt states sometimes radiates down the right leg with intermittent tingling. pt states has a history of a kidney infection and this feels similar. pt states mild urinary burning, frequency, and urgency with mild strong odor. pt denies fever, vomiting, or other associated symptoms. given appt tomorrow with blue team provider at 9:45 for exam. advised home care: rest, fluids, ice, heat, OTC pain or fever reliever as needed and call back if worsening or new concerns. pt understands and agrees with plan. insurance verified. no available appt with PCP until next week. Protocol Used: Back Pain (Adult) Protocol-Based Disposition: See in Office or Video Visit within 3 Days Video visit offer not recorded Positive Triage Question: * Patient wants to be seen * All higher-acuity triage questions were negative Care Advice Discussed: * Reassurance and Education - Back Pain * Cold or Heat * Sleep * Continue Activity * Pain Medicines * Reasons To Call Back - Fever occurs - Numbness or weakness occurs - Loss of control of your bladder or bowel - Severe pain not better after taking pain medicines - Pain begins to shoot into the leg - Pain lasts over 2 weeks - Pain becomes worse - You become worse * Telephone Encounter - Hiren Sulaiman - 03/24/2025 12:56 PM EDT Symptom: Back Pain - Not From Injury Outcome: Schedule an urgent appointment (within 1 hour) or talk to a nurse or provider soon Reason: Weakness of the leg Please contact pt at [phone]. (Czech Speaker) documented in this encounter Plan of Treatment Not on file documented as of this encounter Visit Diagnoses Not on filedocumented in this encounter Care Teams Academic Support Center Director Relationship Specialty Start Date End Date Rubi Weston MD [address] [place] [phone] PCP - General Family Medicine 09/28/20 documented as of this encounter
== END 2025-03-25 10:29 | disposition home or self-care (01) ==
LOC: HO.HHCX 10:28
PROVIDERS: PCP General Practice
DX: M54.41 Lumbago with sciatica, right side (principal); G89.29 Other chronic pain
CPT/HCPCS: 72100

== ENCOUNTER → 2025-03-25 10:45 | Outpatient (BNV) | payer OTHER, SELFPAY | PROVIDERS: PCP General Practice; Visit Provider Radiology Diagnostic Radiology | DX: M54.50 Low back pain, unspecified (principal) | CPT/HCPCS: 72100 ==

== ENCOUNTER 2025-04-27 14:00 | Outpatient (REF) | payer OTHER, SELFPAY ==
--- NOTE | ~2025-04-27 | MM_ITS ---
EXAMINATION: MM DIAGNOSTIC DIGITAL BREAST TOMOSYNTHESIS, BILATERAL CLINICAL INFORMATION: This is a 6-month follow-up for right breast calcifications. COMPARISON: Comparison made to multiple prior, most recent right diagnostic mammogram on October 21, 2024, and most remote December 18, 2018. TECHNIQUE: Digital breast tomosynthesis is performed in both the mediolateral oblique and craniocaudal views along with computer-aided detection (CAD). Synthesized 2D images are generated from the tomosynthesis. Magnified spot compression views of the right breast calcifications were obtained. FINDINGS: BREAST COMPOSITION: There are scattered areas of fibroglandular density (ACR BI-RADS breast composition Category b). RIGHT BREAST: Grouped calcifications in the upper outer quadrant at about 8-9 cm from the nipple are unchanged from prior spot magnified compression views from April 2024. Two tissue markers from previous needle core biopsies are in place. History of previous excisional biopsy. No significant masses, new calcifications or other abnormalities are seen. LEFT BREAST: History of previous excisional biopsy. No significant masses, suspicious calcifications or other abnormalities are seen. MM/MM tomosynthesis diagnostic BI IMPRESSION: RIGHT BREAST: Grouped calcifications in the upper outer quadrant are unchanged from April 2024. Probably benign. A 12-month follow-up diagnostic mammogram is recommended. LEFT BREAST: Benign, no mammographic evidence of malignancy. Normal interval follow-up is recommended in 12 months. ASSESSMENT: BI-RADS 3 - Probably benign finding(s) - 12 month follow-up suggested RECOMMENDATION: 12 month diagnostic follow up Results were provided to the patient at time of visit by the technologist. This patient's information was entered into a reminder system with a target due date for their next mammogram. Electronically signed by: Sloan Wilson MD 04/27/2025 06:31 PM EDT
--- OUTSIDE RECORDS SUMMARY | 2025-04-27 16:22 | XMS_ITS | Encounter Summary ---
Author Organization [employer] Address [address] [place] [address] [address] [place] [address] Care Team Providers Care Board Operator Name Role Phone Rubi Weston MD Primary Care Provider Encounter Details Date Type Department Care Team ([facility] st Contact Info) Description 03/18/2024 Telephone [facility] 230 [place], [place] [phone] Rubi Weston MD [address] [place], [place] [phone] Social History Tobacco Use Types Packs/Day Years [...] as of this encounter Plan of Treatment Upcoming Encounters Date Type Department Care Team (Late st Contact Info) Description 06/26/2025 2:15 PM EST Office Visit [facility] [address] [place] [address] Rubi Weston MD [address] [place] [address] documented as of this encounter Visit Diagnoses Not on filedocumented in this encounter Care Teams Board Operator Relationship Specialty Start Date End Date Rubi Weston MD [address] [place], [place] [phone] PCP - General Family Medicine 09/28/20 documented as of this encounter
--- OUTSIDE RECORDS SUMMARY | 2025-04-27 16:22 | XMS_ITS | Encounter Summary ---
Author Organization [facility] Address [address] [place] [address] [place] [address] Care Team Providers Care Heliotherapist Name Role Phone Rubi Weston MD Primary Care Provider Reason for Visit * Reason Onset Date Comments Prior Authorization 04/24/2025 HERMILA PA: Lido salty 5% Patch Encounter Details Date Type Department Care Team ([facility] st Contact Info) Description 04/24/2025 Telephone [facility] [address] [place], [place] [phone] Rubi Weston MD [address] [place], [place] [phone] Prior Authorization (HERMILA PA: Lidocaine 5% Patch) Social History Tobacco Use Types Packs/Day Years Used Date Smoking Tobacco: Never Passive Smoke Exposure: Never Smokeless Tobacco: Never Alcohol Use Standard Drinks/Week Comments Never 0 (1 standard drink = 0.6 oz pur e alcohol) Housing Stability Answer Date Recorded What is your housing situation today? I have elaine turnre 06/09/[address] you li [...] encounter Miscellaneous Notes * Telephone Encounter - Linda Hilario - 04/24/2025 4:16 PM EDT KORTNEY initiated on Covermymeds for Lidocaine 5% Patch . Approval/denial pending. (Barraza: [id number]) KORTNEY Rx #: [id number] documented in this encounter Plan of Treatment Upcoming Encounters Date Type Department Care Team (Late st Contact Info) Description 06/26/2025 2:15 PM EST Office Visit [facility] [address] [place] [phone] Rubi Weston MD [address] [place] [phone] documented as of this encounter Visit Diagnoses Not on filedocumented in this encounter Care Teams Heliotherapist Relationship Specialty Start Date End Date Rubi Weston MD [address] [place] [phone] PCP - General Family Medicine 09/28/20 documented as of this encounter
--- OUTSIDE RECORDS SUMMARY | 2025-04-27 16:22 | XMS_ITS | Encounter Summary ---
Author Organization [email or web address] Address [address] [place] [address] 7 [place] [address] Care Team Providers Care Hospital Pharmacy Director Name Role Phone Rubi Weston MD Primary Care Provider [phone] Reason for Visit * Reason Onset Date Comments Appointment Request 03/05/2024 Encounter Details Date Type Department Care Team ([facility] st Contact Info) Description 03/05/2024 Telephone [facility] [address] [place] [address] Rubi Weston MD [address] [place], [place] [phone] Appointment Request Social History Tobacco Use Types [...] the past 12 months, has t he [email or web address] or [employer] threatened to shut off services in your [...] Miscellaneous Notes * Telephone Encounter - Hiren Hilario - 03/05/2024 2:32 PM EDT Tc from pt calling in regards to 01/27 appt stated pcp advised pt to follow up in a month but pt stated she has not received a call or appt notice. Please contact pt at [phone]. documented in this encounter Plan of Treatment Upcoming Encounters Date Type Department Care Team (Late st Contact Info) Description 06/26/2025 2:15 PM EST Office Visit [facility] [address] [place] [address] Rubi Weston MD [address] [place] [address] documented as of this encounter Visit Diagnoses Not on filedocumented in this encounter Care Teams Hospital Pharmacy Director Relationship Specialty Start Date End Date Rubi Weston MD [address] [place] [address] PCP - General Family Medicine 09/28/20 documented as of this encounter
--- OUTSIDE RECORDS SUMMARY | 2025-04-27 16:22 | XMS_ITS | Clinical Summary ---
Author Organization [employer] Address [address] [place] [address] [address] [place] [address] Care Team Providers Care Driver Lifter Of Sanitation Truck Name Role Phone Rubi Weston MD Primary Care Provider [phone] Allergies Active Allergy Reactions Criticality Noted Date Comments Aspirin Rash Low 08/30/2010 Doxycycline 08/30/2010 Other reaction(s): nausea: vomiting, migraine Medications lidocaine (Lidoderm) 5 % patchIndications:F ibromyositis Apply 1 patch topically in the morning. 30 patch 1 08/16/20 22 Active Blood Glucose Monitoring Suppl (Oxane MaterialsStyle [place] Lite) w/Device kit Use to test blood sugar bid dx dm 1 kit 04/25/20 23 Active Sharps Container (Sharps Model And Mold Maker Plaster) misc 1 Units if needed in the [...] or split. 90 tablet 3 01/28/20 24 Active Additional Information Patient taking differently:500 mg OralDaily PRN, Do not crush, chew, or split. , Reported on 04/01/2024 fish oil ([place]-3) 500 MG capsule Take 1 capsule [...] day. 90 capsule 3 03/26/20 24 Active cyclobenzaprine (Flexeril) 5 MG tablet Take [...] SPLIT. 90 tablet 1 08/12/20 24 Active ibuprofen 800 MG tabletIndications: Primary osteoarthritis of left hip Take 1 tablet (800 mg) by mouth if needed in the morning and at bedtime for moderate pain. 60 tablet 3 09/19/19 25 Active cholecalciferol VITAMIN D (Vitamin D-3) 50 MCG (1999 UT) capsule Take 1 capsule by mouth Once per day. 03/26/20 24 Active cromolyn (NasalCrom) 5.2 MG/ACT nasal sprayIndications:V iral upper respiratory infection Administer 1 spray into each nostril if needed in the morning, at noon, and at bedtime for rhinitis for up to 5 days. 26 mL 11/22/19 25 Active loratadine (Claritin) 10 MG tabletIndications: Cough, unspecified type Take 1 tablet (10 mg) by mouth Once per day. 30 tablet 02/10/20 25 Active albuterol 108 (90 Base) MCG/ACT inhalerIndications :Cough, unspecified type Inhale 2 puffs every 6 (six) hours if needed for wheezing. 18 g 02/10/20 25 026 Active fluticasone (Flonase) 50 MCG/ACT nasal sprayIndications:C ough, unspecified type Administer 1 spray into each nostril 2 times daily. Shake gently. Before first use, prime pump. After use, clean tip and replace cap. 16 g 1 02/10/20 25 Active Ascorbic Acid (vitamin C) 500 MG tablet TAKE 1 TABLET BY MOUTH ONCE DAILY WITH IRON 90 tablet 3 02/28/20 25 Active cyclobenzaprine (Flexeril) 10 MG tabletIndications: Chronic right-sided low back pain with right-sided sciatica Take 0.5 tablets (5 mg) by mouth 3 times daily for 10 days. 15 tablet 03/25/20 25 Active lidocaine (Lidoderm) 5 % patchIndications:C hronic right-sided low back pain with right-sided sciatica Apply 1 patch topically Once per day. Remove & discard patch within 12 hours or as directed by MD. 30 patch 03/25/20 25 Active Hospital, Clinic, or Other Facility Administered Medication Ordered Dose Route Frequency Start Date End Date Status triamcinolone acetonide (Kenalog-40) injection 40 mgIndications:Localized primary osteoarthritis of left shoulder region 40 mg IX Once 10/07/2024 Acti ve lidocaine (Xylocaine) 2 % injection 40 mgIndications:Localized primary osteoarthritis of left shoulder region 40 mg IJ Once 10/07/2024 Acti ve Active Problems Problem Noted Date Diagnosed Date Viral upper respiratory infection 11/21/2024 Assessment & Plan (11/21/2024 11:45 AM EDT): COVID, Flu and Strep negative. No evidence of respiratory distress. Symptoms mild. No evidence of dehydration. Exam reassuring and consistent with flu-like syndrome. -Recommended OTC medications, antipyretics and analgesics as needed for fever and body aches. -Prescribed Acetaminophen 500 MG capsule -Supportive care advised. -Isolation recommendations discussed. Nasal congestion 11/21/2024 Assessment & Plan (11/21/2024 11:45 AM EDT): Moderate nasal congestion on exam. Likely due to underlying URI. -prescribed cromolyn (NasalCrom) 5.2 MG/ACT nasal spray History of laparoscopic appendectomy 03/21/2024 Assessment & [...] Plan (01/28/2024 8:25 AM EDT): Maintenance: Lisinopril/HCTZ 25 BMP: eGFR 59 (03/2023) Lipid Panel: Lab [...] Encounters Date Type Department Care Team Description 04/24/[address] [address] Rubi Weston MD Prior Authorization ([facility] PA: Lidocaine 5% Patch) 03/25/2025 9:45 AM EDT Office Visit [address] [address] Tara Cassidy, CLIF Chronic right-sided low back pain with right-sided sciatica (Primary Dx) 03/25/2025 Travel 03/24/[address] [address] Rubi Weston MD Nurse Triage 02/26/[address] [phone] Rubi Weston MD 02/09/2025 3:15 PM EDT Office Visit [address] [address] Acacia Lazcano, SPECIAL EDUCATION INCLUSION TEACHER Cough, unspecified type 02/09/2025 Travel 02/09/[address] [address] Rubi Weston MD Nurse Triage from Last 3 Months Immunizations Immunization Administration Dates Next Due Hep B, adult [...] Sign Reading Time Taken Comments Blood Pressure 138/68 03/25/2025 9:53 AM EDT Pulse 59 03/25/2025 9:53 AM EDT Temperature 36.9 C (98.4 F) 02/09/2025 4:08 PM EDT Respiratory Rate 20 03/25/2025 9:53 AM EDT Oxygen Saturation 98% 02/09/2025 4:08 PM EDT Inhaled Oxygen Concentration - - Weight 88.6 kg (195 lb 6.4 oz) 03/25/2025 9:53 A M EDT Height 160 cm (5' 3 ) 03/25/2025 9:53 AM EDT Body Mass Index 34.61 03/25/2025 9:53 AM EDT Plan of Treatment Upcoming Encounters Date Type Department Care Team (Late st Contact Info) Description 06/26/2025 2:15 PM EST Office Visit [facility] [address] [facility] [place] [address] Rubi Weston MD [address] [facility] [place] [address] Health Maintenance Due Date Last Done Comments CT Colonography 1960 Colonoscopy 1961 FIT 1961 Sigmoidoscopy 1960 Disability Screening 1961 Eye Exam 1971 Alcohol/Substance Use Screening 1973 Pneumococcal Vaccine: 50+ Years (2 of 2 - PCV) 07/05/2002 07/05/2001 Zoster Vaccines (1 of 2) 2011 DTaP/Tdap/Td Vaccines (2 - Td or Tdap) 03/12/2022 03/12/2012, 08/20/1988 Depression Screening 04/11/2024 04/11/2023, 04/11/20 23 SDOH Screening 01/17/2025 01/18/2024 Diabetes: Hemoglobin A1C 03/19/2025 025, 03/26/2024, 01/28/2024, Additional history exists Diabetes: Urine Protein Screening 03/26/2025 03/26/2024, 09/30/2020 COVID-19 Vaccine ( season) 2025 Influenza Vaccine (#1) 2025 , 05/27/2019, 10/03/2018, Additional history exists Diagnostic Breast Imaging 04/23/20252024, 04/23/2024, 04/23/2024 Diabetes: Foot Exam 05/28/2025 05/28/2024, 05/28/2024, 05/28/2024, Additional history exists Lipid Panel 09/19/2025 09/19/2024, 0811/2022, 03/30/2022, Additional history exists FOBT 11/04/2025 11/04/2024, 04/11/2022 Cervical Cancer Screening 11/12/2025 HPV/Cotest 11/12/2025 11/12/2020 Pap Smear 11/12/2025 11/12/2020 Tobacco Screening 03/25/2026 03/25/2025 Colorectal Cancer Screening 11/05/2027 FIT DNA/Cologuard 11/05/2027 11/04/2024, 04/11/2022 RSV Patients and Patients Aged 60 years [...] Name Priority Date/Time Associated Diagnosis Comments POCT URINALYSIS DIPSTICK Routine 03/25/2025 10:44 AM EDT Chronic right-sided low back pain with right-sided sciatica XR LUMBAR SPINE 2-3 VIEWS Routine 03/25/2025 10:09 AM EDT Chronic right-sided low back pain with right-sided sciatica POCT INFLUENZA B (ID NOW RAPID MOLECULAR) Routine 02/09/2025 4:23 PM EDT Cough, unspecified type POCT INFLUENZA A (ID NOW RAPID MOLECULAR) Routine 02/09/2025 4:22 PM EDT Cough, unspecified type POCT RAPID COVID ANTIGEN Routine 02/09/2025 4:14 PM EDT Cough, unspecified type LAB COLOGUARD COLON CANCER SCREEN Routine 11/04/2024 12:15 PM EDT Colon cancer screening BI MAMMOGRAM DIAGNOSTIC RIGHT Routine 10/21/2024 10:10 AM EST LIPID PANEL, STANDARD Routine 09/19/2024 12:23 PM EST Type 2 diabetes mellitus without complication, without long-term current use of insulin (CMS/HCC) POCT GLYCATED HEMOGLOBIN, TOTAL Routine 09/19/2024 11:48 [...] without long-term current use of insulin (CMS/HCC) HPV MRNA E6/E7 Routine 11/12/2020 3:01 PM EDT THINPREP PAP Routine 11/12/2020 3:01 PM EDT from Last 3 Months or Most Recently Relevant to Health Maintenance Results * POCT Urinalysis (03/25/2025 10:44 AM EDT) Color, UA Yellow Clarity, UA Clear Glucose, UA Negative Bilirubin, UA Negative Ketones, UA Negative Spec Grav, UA 1.005 Blood, UA Negative Negative, None Detected pH, UA 6.0 Protein, UA Negative Urobilinogen, UA 0.2 Leukocytes, UA Negative Negative, Rare, Trace Nitrite, UA Negative Negative, None Detected Appearance, UA clear QC Media Lot # [id number] Lot# Expiration Date [id number] Urine 03/25/2025 10:4 4 AM EDT Tara Cassidy QUALITY CONTROL ENGINEER POINT OF CARE TEST ENTER/ EDIT ORDERABLES Final Result * XR Lumbar Spine 2-3 Views (03/25/2025 10:09 AM EDT) Anatomical Region Laterality Modality Spine, L-spine Radiographic Bertha ging 03/25/2025 10:0 9 AM EDT Narrative 03/25/2025 11:25 AM EDT [address] [address] XRay Report Signed Patient: Lakshmi Salguero MR#: [id number] : 1960 Acct:[id number] Age/Sex: 64 / F ADM Date: 03/25/25 Loc: [facility] Attending Dr: Tara Cassidy SPECIAL EDUCATION INCLUSION TEACHER Ordering Physician: Tara Cassidy Date of Service: 03/25/25 Procedure(s): XR lumbar spine 2-3V Accession Number(s): [id number] cc: Rubi Weston; Tara Cassidy EXAMINATION: XR LUMBAR SPINE 2-3 VIEWS HISTORY: chronic low BP COMPARISON: Comparison is made with the prior examination dated 03/29/2018. FINDINGS: AP, lateral, and coned down views of the lumbar spine are submitted. Osseous mineralization is normal. Five nonrib-bearing lumbar vertebral bodies are identified, maintaining normal height without evidence of fracture. There is slight spondylolisthesis of L4 on L5. There is mild degenerative disc disease with disc space narrowing and osteophyte formation. The posterior elements are intact. The visualized paraspinal soft tissues are unremarkable. XR/XR lumbar spine 2-3V IMPRESSION: Mild degenerative disc disease. Slight spondylolisthesis of L4 on L5. Electronically signed by: Daniel Wilson MD 03/25/2025 11:22 AM EDT Dictated By: Daniel Wilson MD Signed By: <Electronically signed by Daniel Wilson MD in OV> 03/25/25 1122 DD/ 1009 TD/TT: 03/25/25 1020 Ring Maker: Procedure Note Brennen, Image - 03/25/[address] [address] XRay Report Signed Patient: Lamont Salguero#: [id number] : 1960cct:[id number] Age/Sex: 64 / FADM Date: 03/25/25 Loc: HO.CL Attending Dr: Tara Cassidy SPECIAL EDUCATION INCLUSION TEACHER Ordering Physician: Tara Cassidy Date of Service: 03/25/25 Procedure(s): XR lumbar spine 2-3V Accession Number(s): [id number] cc: Rubi Weston; Tara Cassidy EXAMINATION: XR LUMBAR SPINE 2-3 VIEWS HISTORY: chronic low BP COMPARISON: Comparison is made with the prior examination dated 03/29/2018. FINDINGS: AP, lateral, and coned down views of the lumbar spine are submitted. Osseous mineralization is normal. Five nonrib-bearing lumbar vertebral bodies are identified, maintaining normal height without evidence of fracture. There is slight spondylolisthesis of L4 on L5. There is mild degenerative disc disease with disc space narrowing and osteophyte formation. The posterior elements are intact. The visualized paraspinal soft tissues are unremarkable. XR/XR lumbar spine 2-3V IMPRESSION: Mild degenerative disc disease. Slight spondylolisthesis of L4 on L5. Electronically signed by: Daniel Wilson MD 03/25/2025 11:22 AM EDT RP Dictated By: Daniel Wilson MD Signed By: <Electronically signed by Daniel Wilson MD in OV> 03/25/25 1122 DD/ 1009 TD/TT: 03/25/25 1020 Ring Maker: Traa Cassidy QUALITY CONTROL ENGINEER IMG XR PROCEDURES Final R esult * POCT Rapid Influenza B AGUIAR ID NOW (02/09/2025 4:23 PM EDT) Influenza B Negative Negative, Indeterminate [facility] QC Media Lot # [id number] [facility] Lot# Expiration Date [facility] Swab 02/09/2025 4:23 PM EDT us Acacia Appram SPECIAL EDUCATION INCLUSION TEACHER POINT OF CARE TEST ENTER/EDIT O RDERABLES Final Result Performing Organization Address [facility] Co de Phone Number [facility] [address] [place] [phone] * POCT Rapid Influenza A AGUIAR ID NOW (02/09/2025 4:22 PM EDT) Influenza A Negative Negative, Indeterminate [facility] QC Media Lot # [id number] [facility] Lot# Expiration Date [facility] Swab 02/09/2025 4:22 PM EDT us Acacia Appram SPECIAL EDUCATION INCLUSION TEACHER POINT OF CARE TEST ENTER/EDIT O RDERABLES Final Result Performing Organization Address [facility] Co de Phone Number [facility] [address] [place] [phone] * POCT Rapid Covid-19 BinaxNOW (02/09/2025 4:14 PM EDT) Rapid COVID Ag Negative QC Media Lot # [id number] Lot# Expiration Date [id number] Swab 02/09/2025 4:14 PM EDT us Acacia Appram SPECIAL EDUCATION INCLUSION TEACHER POINT OF CARE TEST ENTER/EDIT O RDERABLES Final Result * Cologuard?? colon cancer screening (11/04/2024 12:15 PM EDT) Cologuard Result Negative Negative 11/09/19 12:48 PM EDT [facility] (CLIA #:[id number]) Comment: NEGATIVE TEST RESULT. A negative Cologuard result indicates a low likelihood that a colorectal cancer (CRC) or advanced adenoma (adenomatous polyps with more advanced pre-malignant features) is present. The chance that a person with a negative Cologuard test has a colorectal cancer is less than 1 in 1500 (negative predictive value >99.9%) or has an advanced adenoma is less than 5.3% (negative predictive value 94.7%). These data are based on a prospective cross-sectional study of 10,000 individuals at average risk for colorectal cancer who were screened with both Cologuard and colonoscopy. (Florencio Brewer. et al, N Engl J Med 2014;370(14):8162-2750) The normal value (reference range) for this assay is negative. COLOGUARD RE-SCREENING RECOMMENDATION: Periodic colorectal cancer screening is an important part of preventive healthcare for asymptomatic individuals at average risk for colorectal cancer. Following a negative Cologuard result, the Indian Cancer Society and U.S. Multi-Society Task Force screening guidelines recommend a Cologuard re-screening interval of 3 years. References: Indian Cancer Society Guideline for Colorectal Cancer Screening: https://www.cancer.org/cancer/pfmeh-ukjeyu-ygwrvh/kzbvjaogb-ytegwttvf-pdwuhmc/ac s-rec ommendations.html.; Tobi MENDEZ, Jeffrey DUFFY, Benita MUKHERJEE, Colorectal Cancer Screening: Recommendations for Physicians and Patients from the U.S. Multi-Society Task Force on Colorectal Cancer Screening , Am J Gastroenterology 2017; 112:4301-4883. TEST DESCRIPTION: Composite algorithmic analysis of stool DNA-biomarkers with hemoglobin immunoassay. Quantitative values of individual biomarkers are not reportable and are not associated with individual biomarker result reference ranges. Cologuard is intended for colorectal cancer screening of adults of either sex, 45 years or older, who are at average-risk for colorectal cancer (CRC). Cologuard has been approved for use by the U.S. FDA. The performance of Cologuard was established in a cross sectional study of average-risk adults aged 50-84. Cologuard performance in patients ages 45 to 49 years was estimated by sub-group analysis of near-age groups. Colonoscopies performed for a positive result may find as the most clinically significant lesion: colorectal cancer [4.0%], advanced adenoma (including sessile serrated polyps greater than or equal to 1cm diameter) [20%] or non- advanced adenoma [31%]; or no colorectal neoplasia [45%]. These estimates are derived from a prospective cross-sectional screening study of 10,000 individuals at average risk for colorectal cancer who were screened with both Cologuard and colonoscopy. (Florencio Celis et al, N Engl J Med 2014;370(14):4806-3234.) Cologuard may produce a false negative or false positive result (no colorectal cancer or precancerous polyp present at colonoscopy follow up). A negative Cologuard test result does not guarantee the absence of CRC or advanced adenoma (pre-cancer). The current Cologuard screening interval is every 3 years. (Indian Cancer Society and U.S. Multi-Society Task Force). Cologuard performance data in a 10,000 patient pivotal study using colonoscopy as the reference method can be accessed at the following location: www.[facility]/results. Additional description of the Cologuard test process, warnings and precautions can be found at www.[facility].com. Stool specimen (specimen) 11/04/2024 12:15 PM EDT 11/05/2024 12:03 PM EDT Rubi Weston MD LAB MOLECULAR DIAGNOSTICS JESE FRY Final Result [facility] (CLIA #:[id number]) [address] [place] [address], * Mammogram Diagnostic Right (10/21/2024 10:10 AM EST) Anatomical Region Laterality Modality Breast Right Mammography 10/21/2024 10:1 0 AM EST Narrative 10/21/2024 10:38 AM EST [facility] [address] [place], [place] [address] Mammography Report Signed Patient: Lakshmi Salguero MR#: [id number] : 1960 Acct:[id number] Age/Sex: 64 / F ADM Date: 10/21/24 Loc: HO.MAMMO Attending Dr: Rubi Weston MD Ordering Physician: Rubi Weston Results: 3.6MProba yuriy Benign Finding - Short 6 M F/U Suggested Date of Service: 10/21/24 Follow Up: 6 Month F/U Procedure(s): MM diagnostic mammo unilat RT Accession Number(s): [id number] cc: Rubi Weston EXAMINATION: MM DIAGNOSTIC DIGITAL [...] DO Signed By: <Electronically signed by Kati Firoe DO in OV> 10/21/24 1035 DD/ 1010 TD/TT: 10/21/24 1025 Ring Maker: Procedure Note Donotuseinterpreter, Image - 10/21/2024 [facility] [address] [place], [place] [address] Mammography Report Signed Patient: Myla SalgueroR#: [id number] : 1960cct:[id number] Age/Sex: 64 / FADM Date: 10/21/24 Loc: HO.MAMMO Attending Dr: Rubi Weston MD Ordering Physician: Michel Westonults: 3.6MProba yuriy Benign Finding - Short 6 M F/U Suggested Date of Service: 10/21/24Follow Up: 6 Month F/U Procedure(s): MM diagnostic mammo unilat RT Accession Number(s): [id number] cc: Rubi Weston EXAMINATION: MM DIAGNOSTIC DIGITAL [...] 10/21/24 1035 DD/ 1010 TD/TT: 10/21/24 1025 Ring Maker: Rubi Weston MD IMG BI PROCEDURES Final Result * Lipid Panel, Standard (09/19/2024 12:23 PM EST) Triglycerides 72 <150 mg/dL [facility] Comment:Desirable Triglyceri de: less than 150 mg/dLBorderline High Triglyceride 150-199 mg/dLHigh Triglyceride: 200-499 mg/dLVery High Triglyceride: greater than or equal to 5OO mg/dL Cholesterol 155 <200 mg/dL [facility] Comment:Desirable Cholestero l: less than 200 mg/dLBorderline High Cholesterol: 200-239 mg/dLHigh Cholesterol: greater than 239 mg/dL LDL Cholesterol Calculated 95 <100 mg/dL [facility] Comment:Desirable LDL: less than 100 mg/dLNear Optimal/Above Optimal LDL: 110- 129 mg/dLBorderline High LDL: 130-159 mg/dLHigh LDL: 160-189 mg/dLVery High LDL: greater than or equal to 190 mg/dL HDL Cholesterol 46 >40 mg/dL [facility] Comment:Desirable HDL: great er than 40 mg/dL Note: This HDL assay may give artificially low results in patients with liver disease. Blood Venous blood specimen / Unknown 09/19/2024 12:23 PM EST 09/19/2024 1:29 PM EST Rubi Weston MD LAB BLOOD ORDERABLES Final Res ult [facility] [address] [place] [phone] * POCT HGB A1C (09/19/2024 11:48 AM EST) Hemoglobin A1C 5.8 4.0 - 6.0 % QC Media Lot # [id number] Lot# Expiration Date 023 Blood 09/19/2024 11:4 8 AM EST Rubi Weston MD POINT OF CARE TEST ENTER/EDIT ORDERABLES Final Result * Albumin, Random Urine W/Creatinine (03/26/2024 11:05 AM EDT) Creatinine, Urine 82.20 mg/dL [facility] Microalbumin Urine <5.0 mg/L H [facility] Microalbum Creatinine Ratio Ur TNP <30 ug/mg cr [facility] Comment:Unable to calculate albumin/creatinine ratio due to lowmicroalbumin or creatinine result. Urine (Urine, Random) 03/26/2024 11:05 AM EDT 03/26/2024 12:54 PM EDT Rubi Weston MD LAB URINE ORDERABLES Final Res ult Performing Organization Address [facility] Co de Phone Number [facility] [address] [place] [phone] * Hepatitis C Antibody with Reflex to HCV, RNA, Quantitative, Real-Time PCR (03/26/2024 11:05 AM EDT) Hepatitis C Antibody Nonreactive Nonreactive [facility] Comment:Antibodies to HCV no t detected; does not exclude early acuteHCV infection. Blood Venous blood specimen / Unknown 03/26/2024 11:05 AM EDT 03/26/2024 1:09 PM EDT Rubi Weston MD LAB BLOOD ORDERABLES Final Res ult Performing Organization Address [facility] Co de Phone Number [facility] [address] [place] [phone] * HIV-1/2 Antigen and Antibodies, Fourth Generation, with Reflexes (03/26/2024 11:05 AM EDT) HIV AB/AG Nonreactive Nonreactive [facility] Comment:HIV-1 p24 Ag and/or HIV-1/HIV-2 Ab not detected.A test result that is nonreactive does not exclude thepossibility of exposure to or infection with HIV-1 and/orHIV-2. Nonreactive results in this assay for individualswith prior exposure to HIV-1 and/or HIV-2 may be due toantigen and antibody levels that are below the limit ofdetection of this assay.The [place] HIV Ag/Ab Combo assay result andsupplemental assay results should be interpreted inconjunction with the patient's clinical presentation,history and other laboratory results. If the results areinconsistent with clinical evidence, additional testing issuggested to confirm the result. Blood Venous blood specimen / Unknown 03/26/2024 11:05 AM EDT 03/26/2024 1:09 PM EDT Rubi Weston MD LAB BLOOD ORDERABLES Final Res ult Performing Organization Address City/[facility]/ZIP Co de Phone Number [facility] [address] [place] [phone] * THINPREP PAP (11/12/2020 3:01 PM EDT) Clinical Information: None given [facility] COMMENT SEE COMMENT [facility] Comment: EXPLANATORY NOTE: The Pap is a screening test for cervical cancer. It is not a diagnostic test and is subject to false negative and false positive results. It is most reliable when a satisfactory sample, regularly obtained, is submitted with relevant clinical findings and history, and when the Pap result is evaluated along with historic and current clinical information. Aviation Electronics Technician: SEE COMMENT [facility] Comment: DANTE WALLS(ASCP) CT screening location: [place] [address] Interpretation/Res ult: SEE COMMENT [facility] [...] PATHOLOGY ORDERABLES Final Result Performing Organization Address [facility]/ZIP Co de Phone Number [facility] [address] [place] [address], * HPV mRNA E6/E7 (11/12/2020 3:01 PM EDT) HPV nRNA E6/E7 Not Detected Not Detected [facility] Comment: Methodology: Gem Stone Cutter-Mediated Amplification This assay detects E6/E7 viral messenger RNA (mRNA) from 14 high-risk HPV types (16,18,31,33,35,39,45,51,52,56,58,59,66,68). The analytical performance characteristics of this assay have been determined by [employer]. The modifications have not been cleared or approved by the FDA. This assay has been validated pursuant to the CLIA regulations and is used for clinical purposes. For additional information, please refer to http://education.[employer]/faq/LFB747s2 (This link if provided for information/ educational purposes only.) 11/12/2020 3:01 PM EDT us Rubi Weston MD LAB BLOOD ORDERABLES Final Res ult Performing Organization Address City/State/[facility] Co de Phone Number [facility] [address] from Last 3 Months or Most Recently Relevant to Health Maintenance Insurance ONE CARE < [address] [place] [phone] Care Teams Driver Lifter Of Sanitation Truck Relationship Specialty Start Date End Date Rubi Weston MD [address] [place] [id number] PCP - General Family Medicine 09/28/20
--- OUTSIDE RECORDS SUMMARY | 2025-04-27 16:22 | XMS_ITS | Encounter Summary ---
Author Organization [employer] Address [address] [place] [address] 7t [place] [address] Care Team Providers Care Lawnmower Repair Mechanic Name Role Phone Rubi Weston MD Primary Care Provider Encounter Details Date Type Department Care Team ([facility] st Contact Info) Description 05/30/2024 Telephone [facility] [address] [place], [place] [phone] Rubi Weston MD [address] [place], [place] [phone] Social History Tobacco Use Types Packs/Day Years [...] Description 06/26/2025 2:15 PM EST Office Visit [facility] [address] [place] [address] Rubi Weston MD [address] [place] [address] documented as of this encounter Visit Diagnoses Not on filedocumented in this encounter Care Teams Lawnmower Repair Mechanic Relationship Specialty Start Date End Date Rubi Weston MD [address] [place], [place] [phone] PCP - General Family Medicine 09/28/20 documented as of this encounter
--- OUTSIDE RECORDS SUMMARY | 2025-04-27 16:22 | XMS_ITS | Clinical Summary ---
Author Organization [address] [place] [address] Address [address] [place] [address] Phone Care Team Providers Care Dough Panner Name Role Phone Physician, Pcp Unknown Primary Care Provider Shelly vailable Allergies No known active allergies Medications No known medications Social History Tobacco Use Types Packs/Day Years [...] - Td or Tdap) 03/12/2022 03/12/2012, 08/20/1988 Medicare Annual Wellness Visit 06/27/2024 Social Influencers of Health Screening 06/27/2024 Depression Screening 08/20/2024 Diabetes: Annual Urine Albumin-Creatinine Ratio (uACR) 10/06/2024 Diabetes: Blood Sugar Control Test (HGBA1C) 03/19/2025 09/19/2024 COVID-19 Vaccine ( season) 2025 Influenza Vaccine (#1) 2025 3, 05/27/2019, 10/03/2018, Additional history exists Diabetes: Annual [...] Recently Relevant to Health Maintenance Results * (ABNORMAL) Comprehensive metabolic panel (10/20/2024 11:21 AM EST) Sodium 139 133 - 145 mmol/L LAB CHEMISTRY METHOD 10/20/2024 2:53 PM EST [facility] Potassium 4.5 3.5 - 5.5 mmol/L LAB CHEMISTRY METHOD 10/20/2024 2:53 PM [facility] Chloride 104 96 - 110 mmol/L LAB CHEMISTRY METHOD 10/20/2024 2:53 PM [facility] CO2 28 21 - 32 mmol/L LAB CHEMISTRY METHOD 10/20/2024 2:53 PM [facility] Anion Gap 7 3 - 11 LAB CHEMISTRY METHOD 10/20/2024 2:53 PM [facility] Glucose 175(H) 70 - 100 mg/dL LAB CHEMISTRY METHOD 10/20/2024 2:53 PM [facility] BUN 18 5 - 25 mg/dL LAB CHEMISTRY METHOD 10/20/2024 2:53 PM [facility] Creatinine 1.15(H) 0.50 - 1.10 mg/dL LAB CHEMISTRY METHOD 10/20/2024 2:53 PM [facility] eGFR 54(L) >=60 mL/min/1. 73m2 LAB CHEMISTRY METHOD 10/20/2024 2:53 PM [facility] Comment:Calculation based on the Chronic Kidney Disease Epidemiology Collaboration (CKD-EPI) equation refit without adjustment for race. BUN/Creatinine Ratio 15.7 LAB CHEMISTRY METHOD 10/20/2024 2:53 PM [facility] Calcium 9.8 8.5 - 10.5 mg/dL LAB CHEMISTRY METHOD 10/20/2024 2:53 PM [facility] AST (SGOT) 14 10 - 42 unit/L LAB CHEMISTRY METHOD 10/20/2024 2:53 PM [facility] ALT (SGPT) 25 10 - 60 unit/L LAB CHEMISTRY METHOD 10/20/2024 2:53 PM [facility] Alkaline Phosphatase 77 42 - 121 unit/L LAB CHEMISTRY METHOD 10/20/2024 2:53 PM [facility] Total Protein 7.2 6.0 - 8.0 g/dL LAB CHEMISTRY METHOD 10/20/2024 2:53 PM EST [facility] Albumin 3.7 3.2 - 5.0 g/dL LAB CHEMISTRY METHOD 10/20/2024 2:53 PM EST [facility] Total Bilirubin 0.4 0.0 - 1.4 mg/dL LAB CHEMISTRY METHOD 10/20/2024 2:53 PM EST [facility] Blood Venous blood specimen / Unknown Venipuncture / Unknown 10/20/2024 11:21 AM EST 10/20/2024 11:21 AM EST Meño Wilcox DPM LAB BLOOD ORDERABLES Final Result [facility] ([facility] [address] [place] [address], from Last 3 Months or Most Recently Relevant to Health Maintenance Insurance [place]ICAID - [place] [facility] MEDICARE Member Subscriber Plan / Payer (Ef fective 2023-Present) Name:COLON LAKSHMI Relation to Subscriber:Self Name:Colon Lakshmi I Payer ID:[id number] Group ID:[id number] Type:Not on file Address: [address] [place] [address] Care Teams Dough Panner Relationship Specialty Start Date End Date Physician, Pcp Unknown PCP - General 10/02/24
--- OUTSIDE RECORDS SUMMARY | 2025-04-27 16:22 | XMS_ITS | Encounter Summary ---
Author Organization [employer] Address [address] [place] [address] 7t [place] [address] Care Team Providers Care Staff Development Educator Name Role Phone Rubi Weston MD Primary Care Provider [phone] Encounter Details Date Type Department Care Team ([facility] st Contact Info) Description 03/19/2024 Orders Only [facility] [address] [place], [place] [phone] Rubi Weston MD [address] [place], [place] [phone] Social History Tobacco Use Types Packs/Day Years [...] Description 06/26/2025 2:15 PM EST Office Visit [facility] [address] [place] [address] Rubi Weston MD [address] [place] [address] documented as of this encounter Visit Diagnoses Not on filedocumented in this encounter Care Teams Staff Development Educator Relationship Specialty Start Date End Date Rubi Weston MD [address] [place], [place] [phone] PCP - General Family Medicine 09/28/20 documented as of this encounter
--- OUTSIDE RECORDS SUMMARY | 2025-04-27 16:22 | XMS_ITS | Encounter Summary ---
Author Organization [employer] Address [address] [place] [address] [address] [place] [address] Care Team Providers Care Merchandising Manager Name Role Phone Rubi Weston MD Primary Care Provider [phone] Reason for Visit * Reason Onset Date Comments Results 04/25/2023 Encounter Details Date Type Department Care Team (Late st Contact Info) Description 04/25/2023 Telephone [facility] [address] [place], [place] [phone] Rubi Weston MD [address] [place], [place] [phone] Results Social History Tobacco Use Types Packs/Day [...] below message, pt. States she already see DrSony And no questions or concerns right now. Advised to give call back on [phone] if any questions or concerns. * Telephone Encounter - Soumya Harden - 04/25/2023 9:25 AM EDT Tc from pt requesting a call in regards to recent lab results. Please contact pt at [phone] documented in this encounter Plan of Treatment Upcoming Encounters Date Type Department Care Team (Late st Contact Info) Description 06/26/2025 2:15 PM EST Office Visit [facility] [address] [place] [address] Rubi Weston MD [address] [place] [phone] documented as of this encounter Visit Diagnoses Not on filedocumented in this encounter Care Teams Merchandising Manager Relationship Specialty Start Date End Date Rubi Weston MD [address] [place] [phone] PCP - General Family Medicine 09/28/20 documented as of this encounter
== END 2025-04-27 14:01 | disposition home or self-care (01) ==
LOC: HO.MAMMO 14:00
PROVIDERS: Visit Provider General Practice
DX: R92.1 Mammographic calcification found on diagnostic imaging of breast (principal)
CPT/HCPCS: 77062; 77066

== ENCOUNTER → 2025-04-27 14:30 | Outpatient (BNV) | payer OTHER, SELFPAY | PROVIDERS: Visit Provider Radiology Body Imaging | DX: R92.1 Mammographic calcification found on diagnostic imaging of breast (principal) | CPT/HCPCS: 77066; G0279 ==

== ENCOUNTER 2025-07-20 14:30 | Outpatient (AMB) | payer OTHER, SELFPAY ==
--- NOTE | 2025-07-20 14:57 | A.OFFVIS_ITS ---
Vital Signs 07/20/25 14:58 Height 5 ft 3 in Weight 195 lb 12.328 oz BMI 34.7 BP 100/62 Blood Pressure Location Lt brachial Position Sitting Pulse 68 Pulse Source Monitor Intake Visit Reasons: r/s 05/06/25 1 yr followup w/ekg Intake Note: 1 yr f/up Property [employer] Casualty Insurance Agent Required: Yes Property And Casualty Insurance Agent Language: Crew Lead Name: voyce/sami Accompanied by: Self / Same As Patient Allergies aspirin (ASA) Allergy (Intermediate, Verified 06/25/24 11:37) Rash doxycycline (DOXYCYCLINE) Allergy (Intermediate, Verified 06/25/24 11:37) CHEST PAIN, RASH Medication List - Last Reconciled 07/20/25 by Salo Delgado MD ascorbic acid (vitamin C) (Vitamin C) 1 tab PO DAILY cholecalciferol (vitamin D3) (Vitamin D3) 1 cap PO DAILY ferrous sulfate 1 tab PO BID lisinopril-hydrochlorothiazide 20-25 mg 1 tab PO DAILY metformin ER 500 mg PO DAILY metoprolol succinate ER (Toprol XL) 25 mg PO DAILY omeprazole 20 mg PO DAILY HPI Comments Details: [age] year female who is here for follow-up. She has background history of hypertension and hyperlipidemia. She is a diabetic. She is currently taking metoprolol succinate, lisinopril and hydrochlorothiazide. Blood pressure in the office today is little low. She is saying that she has been feeling tired but these symptoms are present all the time on most days. She has not checked her blood pressure at home recently. I have advised her to check her blood pressure at home. She will call us with a log. No chest discomfort. She occasionally gets dyspnea with activities. Her last LDL cholesterol was 95. Her target LDL is less than 70 ideally less than 55 being a diabetic. [facility] Medical History Abscess of appendix Trochanteric bursitis, left hip Trochanteric bursitis, right hip Osteoarthritis involving multiple joints on both sides of body Hair loss Fibromyalgia Lumbar spondylosis Surgical History Hx of carpal tunnel repair Hx of cholecystectomy History of lumpectomy of left breast Family History Mother HTN (hypertension) Brother Prostate cancer Daughter Diabetes Asthma HTN (hypertension) Social History Household Members: Spouse and Children Housing: House Are you a primary medicare insurance specialist to a significant other at home: No Do you presently have visiting nurse or other home services: No Alcohol intake: never Patient Tobacco Use Status: Never used Tobacco service: No Current occupational status: disabled Review of Systems Const Denies chills, Denies fatigue, Denies fever(s), Denies frequent falls, Denies weakness, Denies weight gain and Denies weight loss ENT Denies dizziness Card Denies chest pain, Denies leg edema, Denies lightheadedness, Denies palpitations, Denies dyspnea and Denies dyspnea on exertion Resp Denies cough, Denies dyspnea and Denies dyspnea on exertion GI Denies hematochezia Musc Denies abnormal gait, Denies muscle weakness, Denies numbness, Denies radiating pain into limb and Denies tingling Neuro Denies abnormal gait, Denies dizziness, Denies frequent falls, Denies numbness, Denies tingling and Denies weakness Endo Denies fatigue and Denies palpitations Physical Exam Vital Signs: Last Vital Signs Pulse 68 07/20/25 14:58 BP 100/62 07/20/25 14:58 BMI result Body Mass Index 34.7 GENERAL APPEARANCE: in no acute distress, pleasant. NECK: no carotid bruit, no jugular venous distention. SKIN: no suspicious lesions, warm and dry. HEART: no murmurs, regular rate and rhythm. LUNGS: clear to auscultation bilaterally. ABDOMEN: soft, nontender. EXTREMITIES: no edema. PERIPHERAL PULSES: equal. NEUROLOGIC: No gross deficits, AAO X 3 Office Procedures EKG Details: Sinus rhythm 68 beats per minute, left axis deviation, left ventricular hypertrophy, T-wave changes consider inferolateral ischemia, QTC 433 milliseconds. [id number], Complete Assessment & Plan Assessment & Plan (1) Essential hypertension: Code(s): I10 - Essential (primary) hypertension Category: Medical (2) Hyperlipidemia: Code(s): E78.5 - Hyperlipidemia, unspecified Category: Medical Plan Pleasant 65 year lady who is here for follow-up. She has background history of hypertension and palpitations. She was anemic and palpitations were secondary to anemia in the past. She is feeling tired and her blood pressure is low. I have advised her to check her blood pressure at home and keep a log for the next week and then call us. If systolic blood pressure less than 100 then I think we need to decrease her antihypertensive medications. I will start with cutting the hydrochlorothiazide to 12.5 mg daily. LDL cholesterol is high being a diabetic. I have advised her to start Crestor 2 0 mg daily. We will send him to her pharmacy. She will see us back in 4 months. Thank you for allowing me to participate in the care of your patient. Please feel free to contact me if you have any questions. Medications: New rosuvastatin 20 mg PO DAILY 60 tabs 3RF E78.5 - Hyperlipidemia, unspecified Coding Level of Care Code Est Pt Level 4 (45361) Diagnoses Essential hypertension I10 Hyperlipidemia E78.5 CPT Codes EKG - CPT: 37989-[id number], Complete ([id number])
[2025-07-20 14:58] VITALS: BP 100/62; PULSE 68; BMI 34.7
--- OUTSIDE RECORDS SUMMARY | 2025-07-20 17:48 | XMS_ITS | Encounter Summary ---
Author Organization [employer] Address [address] [place] [address] 7t [place] [address] Care Team Providers Care Senior Portfolio Analyst Name Role Phone Rubi Weston MD Primary Care Provider [phone] Encounter Details Date Type Department Care Team ([facility] st Contact Info) Description 05/30/2024 Telephone [facility] [address] [place], [place] [phone] Rubi Weston MD [address] [place], [place] [phone] Social History Tobacco Use Types Packs/Day Years [...] filedocumented in this encounter Care Teams Senior Portfolio Analyst Relationship Specialty Start Date End Date Rubi Weston MD [address] [place] [address] PCP - General Family Medicine 09/28/20 documented as of this encounter
--- OUTSIDE RECORDS SUMMARY | 2025-07-20 17:48 | XMS_ITS | Clinical Summary ---
Author Organization [address] [place] [address] Address [address] [place] [address] Phone Care Team Providers Care Maintenance Mgr Name Role Phone Physician, Pcp Unknown Primary [...] (2 of 2 - PCV) 07/05/2002 07/05/2001 RSV Immunization Adult Patients (1 - Risk 50-74 years 1-dose series) 2011 Zoster Vaccines (1 of 2) 2011 DTaP,Tdap,and Td Vaccines (3 - Td or [...] LAB CHEMISTRY METHOD 10/20/2024 2:53 PM EST [facility] Potassium 4.5 3.5 - 5.5 mmol/L [...] LAB CHEMISTRY METHOD 10/20/2024 2:53 PM EST [facility] Albumin 3.7 3.2 - 5.0 g/dL LAB CHEMISTRY METHOD 10/20/2024 2:53 PM EST [facility] Total Bilirubin 0.4 0.0 - 1.4 mg/dL LAB CHEMISTRY METHOD 10/20/2024 2:53 PM EST [facility] Blood Venous blood specimen / Unknown Venipuncture / Unknown 10/20/2024 11:21 AM EST 10/20/2024 11:21 AM EST Meño Wilcox DPM LAB BLOOD ORDERABLES Final Result [facility] ([facility]) [facility] [address] [place] [address], from Last 3 Months or Most Recently Relevant to Health Maintenance Insurance [place] - [place] [facility] MEDICARE Member Subscriber Plan / Payer (Ef fective 2023-Present) Name:COLONJENNIFERLAKSHMI Relation to Subscriber:Self Name:Colon Lakshmi I Payer ID:[id number] Group ID:[id number] Type:Not on file Address: [address] [place] [address] Care Teams Maintenance Mgr Relationship Specialty Start Date End Date Physician, Pcp Unknown PCP - General 10/02/24
--- OUTSIDE RECORDS SUMMARY | 2025-07-20 17:48 | XMS_ITS | Clinical Summary ---
Author Organization [employer] Address [address] [place] [address] [address] [place] [address] Care Team Providers Care Polishing Machine Tender Name Role Phone Rubi Weston MD Primary Care Provider [phone] Allergies Active Allergy Reactions Criticality Noted Date Comments Aspirin Rash Low 08/30/2010 Doxycycline 08/30/2010 Other reaction(s): nausea: vomiting, migraine Medications lidocaine (Lidoderm) 5 % patchIndications: Fibromyositis Apply 1 patch topically in the morning. 30 patch 1 022 Active Blood Glucose Monitoring Suppl (FreeStyle [place] Lite) w/Device kit Use to test blood sugar bid dx dm 1 kit 023 Active Sharps Container (Sharps Pulp Making Plant Operator) misc 1 Units if needed in the morning and at bedtime (sharps). Dispose used sharps in container. 1 each 3 023 Active clotrimazole (Lotrimin) 1 % cream APPLY CREAM TOPICALLY TWICE DAILY 024 Active metFORMIN XR (Glucophage-XR) 500 MG 24 hr tablet Take 1 tablet (500 mg) by mouth with evening meal. Do not crush, chew, or split. 90 tablet 3 024 Active Additional Information Patient taking differently:500 mg OralDaily PRN, Do not crush, chew, or split. , Reported on 04/01/2024 Alcohol Swabs (Alcohol Pads) 70 % pads Use as directed on skin 100 each Active FreeStyle lancets 1 each by Other route 2 times daily. Use bid, dx type 2 diabetes 60 each 024 Active glucose blood (FREESTYLE LITE) test strip Use bid. Dx diabetes 60 each Active ferrous sulfate 325 (65 Fe) MG EC tablet TAKE 1 TABLET BY MOUTH ONCE DAILY BREAKFAST. DO NOT CRUSH, CHEW OR SPLIT. 90 tablet 1 Active ibuprofen 800 MG tabletIndications :Primary osteoarthritis of left hip Take 1 tablet (800 mg) by mouth if needed in the morning and at bedtime for moderate pain. 60 tablet 3 Active cholecalciferol VITAMIN D (Vitamin D-3) 50 MCG (1999 UT) capsule Take 1 capsule by mouth Once per day. Active albuterol 108 (90 Base) MCG/ACT inhalerIndication s:Cough, unspecified type Inhale 2 puffs every 6 (six) hours if needed for wheezing. 18 g 025 2025 Active fluticasone (Flonase) 50 MCG/ACT nasal sprayIndications: Cough, unspecified type Administer 1 spray into each nostril 2 times daily. Shake gently. Before first use, prime pump. After use, clean tip and replace cap. 16 g 1 Active Ascorbic Acid (vitamin C) 500 MG tablet TAKE 1 TABLET BY MOUTH ONCE DAILY WITH IRON 90 tablet 3 Active metoprolol succinate XL (Toprol-XL) 25 MG 24 hr tablet Take 1 tablet by mouth once daily 90 tablet 3 Active lisinopril-hydroC HLOROthiazide 20-25 MG tablet Take 1 tablet by mouth once daily 90 tablet 3 Active Cholecalciferol (Vitamin D) 50 MCG (1999 UT) capsule Take 1 capsule by mouth once daily 90 capsule 3 Active loratadine (Claritin) 10 MG tabletIndications :Cough, unspecified type Take 1 tablet (10 mg) by mouth Once per day. 90 tablet 3 Active cyclobenzaprine (Flexeril) 5 MG tablet Take 1 tablet (5 mg) by mouth if needed each day for muscle spasms. 30 tablet Active pregabalin (Lyrica) 25 MG capsule Take 1 capsule (25 mg) by mouth 2 times daily. 60 capsule 025 2024 Active fish oil ([place]-3) 500 MG capsule Take 1 capsule (500 mg) by mouth Once per day. 90 capsule 3 024 2024 Discontinued(T herapy completed) cyclobenzaprine (Flexeril) 5 MG tablet Take 5 mg by mouth if needed each day for muscle spasms. 2024 Discontinued(R eorder (will not trigger notification to Pharmacy)) cromolyn (NasalCrom) 5.2 MG/ACT nasal sprayIndications: Viral upper respiratory infection Administer 1 spray into each nostril if needed in the morning, at noon, and at bedtime for rhinitis for up to 5 days. 26 mL 2024 Discontinued(T herapy completed) cyclobenzaprine (Flexeril) 10 MG tabletIndications :Chronic right-sided low back pain with right-sided sciatica Take 0.5 tablets (5 mg) by mouth 3 times daily for 10 days. 15 tablet 2024 Discontinued(T herapy completed) lidocaine (Lidoderm) 5 % patchIndications: Chronic right-sided low back pain with right-sided sciatica Apply 1 patch topically Once per day. Remove & discard patch within 12 hours or as directed by MD. 30 patch 2024 Discontinued(T herapy completed) Hospital, Clinic, or Other Facility Administered Medication Ordered Dose Route Frequency Start Date End Date Status triamcinolone acetonide (Kenalog-40) injection 40 mgIndications:Localiz ed primary osteoarthritis of left shoulder region 40 mg IX Once 10/07/2024 06/26/2025 Disc ontinued lidocaine (Xylocaine) 2 % injection 40 mgIndications:Localiz ed primary osteoarthritis of left shoulder region 40 mg IJ Once 10/07/2024 06/26/2025 Disc ontinued Active Problems Problem Noted Date Diagnosed Date [...] capsule -Supportive care advised. -Isolation recommendations discussed. History of laparoscopic appendectomy 03/21/2024 Assessment & [...] Plan (03/26/2024 11:03 AM EDT): Maintenance: Lisinopril/HCTZ 25 BMP: eGFR [...] Plan (01/28/2024 8:25 AM EDT): Maintenance: Lisinopril/HCTZ 2025 BMP: eGFR 59 (03/2023) Lipid Panel: Lab [...] 02/11/2021 HGB 10.8 (L) 09/30/2020 Obesity 07/27/2015 Resolved Problems Problem Noted Date Diagnosed Date Resolved Date Nasal congestion 11/21/2024 06/26/2025 Assessment & Plan (11/21/2024 11:45 AM EDT): Moderate nasal congestion on exam. Likely due to underlying URI. -prescribed cromolyn (NasalCrom) 5.2 MG/ACT nasal spray Encounters Date Type Department Care Team Description 07/03/2025 Telephone [facility] [address] [place] [phone] Rubi Weston MD Prior Authorization ([place]: Pregabalin (Lyrica) 25 MG capsule) 06/26/2025 2:15 PM EST Office Visit [facility] [address] [place] [address] [phone] Rubi Weston MD Type 2 diabetes mellitus without complication, without long-term current use of insulin (HCC) (Primary Dx); Essential hypertension; Fibromyalgia; Atypical lobular hyperplasia of breast; Encounter for immunization 06/26/2025 Travel 06/19/2025 Refill [facility] [address] [place] [phone] Acacia Lazcano NP Cough, unspecified type 06/19/2025 Refill [facility] [address] [place] [address] [phone] Rubi Weston MD Cough, unspecified type 04/27/2025 Orders Only [facility] [address] [place] [address] [phone] Rubi Weston MD 04/24/[address] [address] Rubi Weston MD Prior Authorization ([facility]: Lidocaine 5% Patch) from Last 3 Months Immunizations Immunization Administration Dates Next Due Hep B, adult 11/16/2009,10/22/2007,02/28/2007 Influenza injectable quadriv alent IIV4 with preservative 05/17/2017,10/24/2016,07/27/2015 Influenza injectable quadriv alent preservative free 05/21/2023,05/27/2019,10/03/2018,10/13 Influenza, IIV3, injectable 07/28/2005, 1,06/06/1999 Influenza, Split (incl. raysa fied surface antigen) 06/05/2013,05/13/2012 Influenza, seasonal, injecta ble, preservative free 06/26/2025 Pneumococcal Conjugate PCV 20 06/26/2025 Pneumococcal Polysaccharide PPSV23 07/05/2001 TD (adult), 2 Lf tetanus tox oid, preservative free, adsorbed 08/20/1988 Tdap 03/12/2012 Social History Tobacco Use Types Packs/Day Years Used Date Smoking Tobacco: Never Passive Smoke Exposure: Never Smokeless Tobacco: Never Tobacco Cessation:Counseling Given: Not Answered Alcohol Use Standard Drinks/Week Comments Never 0 (1 standard drink = 0.6 oz pur e alcohol) Depression Answer Date Recorded Patient Health Questionnaire-9 Score 7 06/26/2025 Patient Health Questionnaire-9 Score 7 06/26/2025 Last PHQ-9: Questionnaire Data Not on file 1 08/26/2024 Housing Stability Answer Date Recorded What is [...] the past 12 months, has t he [employer], [employer], oil or water company threatened to shut off services in your home? No 06/09/2023 Depression Answer Date Recorded Patient Health Questionnaire-2 Score 2 06/26/2025 Comments Unknown Sex and Gender Information Value Date Recorded Sex Assigned at Female 06/19/2022 10:14 AM EDT Legal Sex Female 10:14 AM EDT Gender Identity Female 06/19/2022 10:14 AM EDT Sexual Orientation Straight 06/19/2022 10 :14 AM EDT Last Filed Vital Signs Vital Sign Reading Time Taken Comments Blood Pressure 110/64 06/26/2025 3:19 PM EST Pulse 64 06/26/2025 3:19 PM EST Temperature 36.3 C (97.4 F) 06/26/2025 3:19 PM EST Respiratory Rate 18 06/26/2025 3:19 PM EST Oxygen Saturation 98% 06/26/2025 3:19 PM EST Inhaled Oxygen Concentration - - Weight 89 kg (196 lb 3.2 oz) 06/26/2025 3:19 PM EST Height 160 cm (5' 3 ) 06/26/2025 3:19 PM EST Body Mass Index 34.76 06/26/2025 3:19 PM EST Plan of Treatment Health Maintenance Due Date Last Done Comments CT Colonography 1960 Colonoscopy 1960 FIT 1960 Sigmoidoscopy 1960 Disability Screening 1960 Alcohol/Substance Use Screening 1973 Zoster Vaccines (1 of 2) 2011 DTaP/Tdap/Td Vaccines (2 - Td or Tdap) 03/12/2022 03/12/2012, 08/20/1988 SDOH Screening 01/17/2025 01/18/2024 Diabetes: Urine Protein Screening 03/26/2025 03/26/2024, 09/30/2020 COVID-19 Vaccine ( season) 2025 Diabetes: Foot Exam 05/28/2025 05/28/2024, 05/28/2024, 05/28/2024, Additional history exists Lipid Panel 09/19/2025 09/19/2024, 08/2 11/2022, 03/30/2022, Additional history exists FOBT 11/04/2025 11/04/2024, 04/11/2022 Cervical Cancer Screening 11/12/2025 HPV/Cotest 11/12/2025 11/12/2020 Pap Smear 11/12/2025 11/12/2020 Diabetes: Hemoglobin A1C 12/24/2025 025, 09/19/2024, 03/26/2024, Additional history exists Diagnostic Breast Imaging 04/27/20262024, 10/21/2024, 04/23/2024, Additional history exists Mammogram 04/27/2026 04/27/2025, 11/2024, 04/23/2024, Additional history exists Depression Screening 06/26/2026 06/26/2025, 06/26/20 Tobacco Screening 06/26/2026 06/26/2025 Eye Exam 12/18/2026 12/18/2024 Colorectal Cancer Screening 11/05/2027 FIT DNA/Cologuard 11/05/2027 11/04/2024, 04/11/2022 RSV Patients and Patients Aged 60 years or older (1 - 1-dose 75+ series) 2036 Hepatitis B Vaccines Completed 11/16/2009, 10/22/2007, 02/28/2007 HIV Screening Completed 03/26/2024 Hepatitis C Screening Completed 03/26/2024 Influenza Vaccine Completed 06/26/2025, , 05/27/2019, Additional history exists Pneumococcal Vaccine: 50+ Years Completed 06/26/2025, 07/05/2001 HIB Vaccines Aged Out No longer eligi [...] on patient's age to complete this topic Goals Goal Patient Goal Type Associated Problems Recent Progress Patient-Stated? Author Help patients manage their type 2 diabetes Care Plan Help patients manage their type 2 diabetes No iLnda Hilario Weekly blood pressure task Care Plan Weekly blood pressure task No Linda Hilario Help patients manage their type 2 diabetes Care Plan Help patients manage their type 2 diabetes No Linda Hilario Patient has chronic kidney disease Care Plan Patient has chronic kidney disease No Linda Hilario Weekly blood pressure task Care Plan Weekly blood pressure task No Linda Hilario Patient has chronic kidney disease Care Plan Patient has chronic kidney disease No Linda Hilario Procedures Procedure Name Priority Date/Time Associated Diagnosis Comments POCT GLYCATED HEMOGLOBIN, TOTAL Routine 06/26/2025 3:00 PM EST Type 2 diabetes mellitus without complication, without long-term current use of insulin (HCC) POCT GLUCOSE Routine 06/26/2025 2:59 PM EST Type 2 diabetes mellitus without complication, without long-term current use of insulin (HCC) BI MAMMOGRAM DIAGNOSTIC TOMOSYNTHESIS BILATERAL Routine 04/27/2025 2:10 PM EDT LAB COLOGUARD COLON CANCER SCREEN Routine 11/04/2024 12:15 PM EDT Colon cancer screening LIPID PANEL, STANDARD Routine 09/19/2024 12:23 PM [...] Relevant to Health Maintenance Results * (ABNORMAL) POCT Hgb A1c (06/26/2025 3:00 PM EST) Hemoglobin A1C 6.0(A) 4.0 - 5.7 % QC Media Lot # [id number] Lot# Expiration Date 51,227 Blood 06/26/2025 3:00 PM EST Rubi Weston MD POINT OF CARE TEST ENTER/EDIT ORDERABLES Final Result * POCT Glucose (06/26/2025 2:59 PM EST) Glucose Blood, POC 95 60 - 200 mg/dL QC Media Lot # [id number] Lot# Expiration Date 31,126 Blood Capillary blood specimen / Unknown 06/26/2025 2:59 PM EST Rubi Weston MD POINT OF CARE TEST ENTER/EDIT ORDERABLES Final Result * BI Mammogram Diagnostic Tomosynthesis Bilateral (04/27/2025 2:10 PM EDT) Anatomical Region Laterality Modality Breast Bilateral Mammography 04/27/2025 2:10 PM EDT Narrative 04/27/2025 6:34 PM EDT [facility] [address] Doyle, [place] [id number] Mammography Report Signed Patient: Lakshmi Salguero MR#: [id number] : 1960 Acct:[id number] Age/Sex: 64 / F ADM Date: 04/27/25 Loc: HO.MAMMO Attending Dr: Rubi Weston MD Ordering Physician: Rubi Weston Results: 3.12MProb ably Benign Finding - 12 month F/U Suggested Date of Service: 04/27/25 Follow Up: 12 month diagnos tic follow up Procedure(s): MM tomosynthesis diagnostic BI Accession Number(s): [id number] cc: Rubi Weston EXAMINATION: MM DIAGNOSTIC DIGITAL BREAST TOMOSYNTHESIS, BILATERAL CLINICAL INFORMATION: This is a 6-month follow-up for right breast calcifications. COMPARISON: Comparison made to multiple prior, most recent right diagnostic mammogram on October 21, 2024, and most remote December 18, 2018. TECHNIQUE: Digital breast tomosynthesis is performed in both the mediolateral oblique and craniocaudal views along with computer-aided detection (CAD). Synthesized 2D images are generated from the tomosynthesis. Magnified spot compression views of the right breast calcifications were obtained. FINDINGS: BREAST COMPOSITION: There are scattered areas of fibroglandular density (ACR BI-RADS breast composition Category b). RIGHT BREAST: Grouped calcifications in the upper outer quadrant at about 8-9 cm from the nipple are unchanged from prior spot magnified compression views from April 2024. Two tissue markers from previous needle core biopsies are in place. History of previous excisional biopsy. No significant masses, new calcifications or other abnormalities are seen. LEFT BREAST: History of previous excisional biopsy. No significant masses, suspicious calcifications or other abnormalities are seen. MM/MM tomosynthesis diagnostic BI IMPRESSION: RIGHT BREAST: Grouped calcifications in the upper outer quadrant are unchanged from April 2024. Probably benign. A 12-month follow-up diagnostic mammogram is recommended. LEFT BREAST: Benign, no mammographic evidence of malignancy. Normal interval follow-up is recommended in 12 months. ASSESSMENT: BI-RADS 3 - Probably benign finding(s) - 12 month follow-up suggested RECOMMENDATION: 12 month diagnostic follow up Results were provided to the patient at time of visit by the technologist. This patient's information was entered into a reminder system with a target due date for their next mammogram. Electronically signed by: Sloan Wilson MD 04/27/2025 06:31 PM EDT Dictated By: Sloan Wilson MD Signed By: <Electronically signed by Sloan Wilson MD in OV> 04/27/25 1831 DD/ 1410 TD/TT: 04/27/25 1436 Cement Worker: Procedure Note Donotuseinterpreter, Image - 04/27/2025 [place] [facility] [address] [place] [address] Mammography Report Signed Patient: Lamont Salguero#: [id number] : 1960cct:[id number] Age/Sex: 64 / FADM Date: 04/27/25 Loc: HO.MAMMO Attending Dr: Rubi Weston MD Ordering Physician: Michel Westonults: 3.12MProb ably Benign Finding - 12 month F/U Suggested Date of Service: 04/27/25Follow Up: 12 month diagnos tic follow up Procedure(s): MM tomosynthesis diagnostic BI Accession Number(s): [id number] cc: Rubi Weston EXAMINATION: MM DIAGNOSTIC DIGITAL BREAST TOMOSYNTHESIS, BILATERAL CLINICAL INFORMATION: This is a 6-month follow-up for right breast calcifications. COMPARISON: Comparison made to multiple prior, most recent right diagnostic mammogram on October 21, 2024, and most remote December 18, 2018. TECHNIQUE: Digital breast tomosynthesis is performed in both the mediolateral oblique and craniocaudal views along with computer-aided detection (CAD). Synthesized 2D images are generated from the tomosynthesis. Magnified spot compression views of the right breast calcifications were obtained. FINDINGS: BREAST COMPOSITION: There are scattered areas of fibroglandular density (ACR BI-RADS breast composition Category b). RIGHT BREAST: Grouped calcifications in the upper outer quadrant at about 8-9 cm from the nipple are unchanged from prior spot magnified compression views from April 2024. Two tissue markers from previous needle core biopsies are in place. History of previous excisional biopsy. No significant masses, new calcifications or other abnormalities are seen. LEFT BREAST: History of previous excisional biopsy. No significant masses, suspicious calcifications or other abnormalities are seen. MM/MM tomosynthesis diagnostic BI IMPRESSION: RIGHT BREAST: Grouped calcifications in the upper outer quadrant are unchanged from April 2024. Probably benign. A 12-month follow-up diagnostic mammogram is recommended. LEFT BREAST: Benign, no mammographic evidence of malignancy. Normal interval follow-up is recommended in 12 months. ASSESSMENT: BI-RADS 3 - Probably benign finding(s) - 12 month follow-up suggested RECOMMENDATION: 12 month diagnostic follow up Results were provided to the patient at time of visit by the technologist. This patient's information was entered into a reminder system with a target due date for their next mammogram. Electronically signed by: Sloan Wilson MD 04/27/2025 06:31 PM EDT Dictated By: Sloan Wilson MD Signed By: <Electronically signed by Sloan Wilson MD in OV> 04/27/25 1831 DD/ 1410 TD/TT: 04/27/25 1436 Cement Worker: Rubi Weston MD IMG BI PROCEDURES Edited Resul t - Final * Cologuard?? colon cancer screening (11/04/2024 12:15 PM EDT) Cologuard Result Negative Negative 11/09/19 12:48 PM EDT [facility] (CLIA #:[id number]) Comment: NEGATIVE TEST RESULT. A negative Cologuard [...] Celis et al, N Engl J Med 2014;370(14):8891-5352) The normal value (reference range) for this assay is negative. COLOGUARD RE-SCREENING RECOMMENDATION: Periodic colorectal cancer screening is an important part of preventive healthcare for asymptomatic individuals at average risk for colorectal cancer. Following a negative Cologuard result, the [employer] [employer] and U.S. Multi-Society Task Force screening guidelines recommend a Cologuard re-screening interval of 3 years. References: [employer] [employer] Guideline for Colorectal Cancer Screening: https://www.cancer.org/cancer/umexm-iabzfs-acvrpe/rcqgyflfj-zymsbhzwy-dqnzgtt/ac s-rec ommendations.html.; Tobi MENDEZ, Jeffrey DUFFY, Benita MUKHERJEE, Colorectal Cancer Screening: Recommendations for Physicians and Patients from the U.S. Multi-Society Task Force on Colorectal Cancer Screening , Am J Gastroenterology 2017; 112:2744-0404. TEST DESCRIPTION: Composite algorithmic analysis of stool [...] Celis et al, N Engl J Med 2014;370(14):1683-9562.) Cologuard may produce a false negative or false positive result (no colorectal cancer or precancerous polyp present at colonoscopy follow up). A negative Cologuard test result does not guarantee the absence of CRC or advanced adenoma (pre-cancer). The current Cologuard screening interval is every 3 years. ([employer] [employer] and U.S. Multi-Society Task Force). Cologuard performance data in a 10,000 patient pivotal study using colonoscopy as the reference method can be accessed at the following location: www.Dragonplay/results. Additional description of the Cologuard test process, warnings and precautions can be found at www.cologuard.com. Stool specimen (specimen) 11/04/2024 12:15 PM EDT 11/05/2024 12:03 PM EDT Rubi Weston MD LAB MOLECULAR DIAGNOSTICS ORDE RABLES Final Result Performing Organization Address [facility]/ZIP Co de Phone Number [facility] (CLIA #:[id number]) [address] [place] [address], * Lipid Panel, Standard (09/19/2024 12:23 PM EST) Triglycerides 72 <150 mg/dL [facility] Comment:Desirable Triglyceri de: less than 150 mg/dLBorderline High Triglyceride 150-199 mg/dLHigh Triglyceride: 200-499 mg/dLVery High Triglyceride: greater than or equal to 5OO mg/dL Cholesterol 155 <200 mg/dL [facility] Comment:Desirable Cholestero l: less than 200 mg/dLBorderline High Cholesterol: 200-239 mg/dLHigh Cholesterol: greater than 239 mg/dL LDL Cholesterol Calculated 95 <100 mg/dL [facility] Comment:Desirable LDL: less than 100 mg/dLNear Optimal/Above Optimal LDL: 110- 129 mg/dLBorderline High LDL: 130-159 mg/dLHigh LDL: 160-189 mg/dLVery High LDL: greater than or equal to 190 mg/dL HDL Cholesterol 46 >40 mg/dL [facility] Comment:Desirable HDL: great er than 40 mg/dL Note: This HDL assay may give artificially low results in patients with liver disease. Blood Venous blood specimen / Unknown 09/19/2024 12:23 PM EST 09/19/2024 1:29 PM EST Rubi Weston MD LAB BLOOD ORDERABLES Final Res ult Performing Organization Address City/[facility]/ZIP Co de Phone Number [facility] [address] [place] [phone] * Albumin, Random Urine W/Creatinine (03/26/2024 11:05 AM EDT) Creatinine, Urine 82.20 mg/dL [facility] Microalbumin Urine <5.0 mg/L [facility] Microalbum Creatinine Ratio Ur TNP <30 ug/mg cr [facility] Comment:Unable to calculate albumin/creatinine ratio due to lowmicroalbumin or creatinine result. Urine (Urine, Random) 03/26/2024 11:05 AM EDT 03/26/2024 12:54 PM EDT Rubi Weston MD LAB URINE ORDERABLES Final Res ult Performing Organization Address [facility]/[employer] Co de Phone Number [facility] [address] [place] [phone] * Hepatitis C Antibody with Reflex to HCV, RNA, Quantitative, Real-Time PCR (03/26/2024 11:05 AM EDT) Pathologist [facility] Hepatitis C Antibody Nonreactive Nonreactive [facility] Comment:Antibodies to HCV no t detected; does not exclude early acuteHCV infection. Blood Venous blood specimen / Unknown 03/26/2024 11:05 AM EDT 03/26/2024 1:09 PM EDT us Rubi Weston MD LAB BLOOD ORDERABLES Final Res ult Performing Organization Address [facility] Co de Phone Number [facility] [address] [place] [address] [phone] * HIV-1/2 Antigen and Antibodies, Fourth Generation, with Reflexes (03/26/2024 11:05 AM EDT) Pathologist [facility] HIV AB/AG Nonreactive Nonreactive [facility] Comment:HIV-1 p24 Ag and/or HIV-1/HIV-2 Ab not detected.A test result that is nonreactive does not exclude thepossibility of exposure to or infection with HIV-1 and/orHIV-2. Nonreactive results in this assay for individualswith prior exposure to HIV-1 and/or HIV-2 may be due toantigen and antibody levels that are below the limit ofdetection of this assay.The [employer] HIV Ag/Ab Combo assay result andsupplemental assay results should be interpreted inconjunction with the patient's clinical presentation,history and other laboratory results. If the results areinconsistent with clinical evidence, additional testing issuggested to confirm the result. Blood Venous blood specimen / Unknown 03/26/2024 11:05 AM EDT 03/26/2024 1:09 PM EDT Rubi Weston MD LAB BLOOD ORDERABLES Final Res ult Performing Organization Address [facility] de Phone Number [facility] [address] [place] [phone] * THINPREP PAP (11/12/2020 3:01 PM [...] along with historic and current clinical information. Tower Crane Operator: SEE COMMENT [facility] Comment: AngelineXM, CT(ASCP) CT screening location: [address] [address] Interpretation/Res ult: SEE COMMENT [facility] Comment: Negative for intraepithelial lesion or malignancy. Atrophic pattern; predominantly parabasal cells LMP: NONE [facility] Prev. BX: NONE [facility] Prev. PAP: NONE GIVEN [facility] SOURCE: None given [facility] Statement Of Adequacy: SATISFACTORY FOR EVALUATION [facility] 11/12/2020 3:01 PM EDT Rubi Weston MD LAB PATHOLOGY ORDERABLES Final Result Performing Organization Address [facility] Co de Phone Number [facility] [address] * HPV mRNA E6/E7 (11/12/2020 3:01 PM EDT) HPV nRNA E6/E7 Not Detected Not Detected [facility] Comment: Methodology: Engineering Laboratory Technician-Mediated Amplification This assay detects E6/E7 viral messenger RNA (mRNA) from 14 high-risk HPV types (16,18,31,33,35,39,45,51,52,56,58,59,66,68). The analytical performance characteristics of this assay have been determined by [employer]. The modifications have not been cleared or approved by the FDA. This assay has been validated pursuant to the CLIA regulations and is used for clinical purposes. For additional information, please refer to http://education.[facility]/faq/MJP381s3 (This link if provided for information/ educational purposes only.) 11/12/2020 3:01 PM EDT us Rubi Weston MD LAB BLOOD ORDERABLES Final Res ult Performing Organization Address [facility] de Phone Number [facility] [address] from Last 3 Months or Most Recently Relevant to Health Maintenance Additional Health Concerns Active Problems Noted Date Diagnosed Date Help patients manage their type 2 diabetes 07/03 Weekly blood pressure task 07/03/2025 Help patients manage their type 2 diabetes 07/03 Patient has chronic kidney disease 07/03/2025 Weekly blood pressure task 07/03/2025 Patient has chronic kidney disease 07/03/2025 Insurance ONE CARE < [address] [place] [id number] Care Teams Polishing Machine Tender Relationship Specialty Start Date End Date Rubi Weston MD [address] [place] [address] PCP - General Family Medicine 09/28/20
--- OUTSIDE RECORDS SUMMARY | 2025-07-20 17:48 | XMS_ITS | Encounter Summary ---
Author Organization [employer] Address [address] [place] [address] [address] [place] [address] Care Team Providers Care Trash Truck Driver Name Role Phone Rubi Weston MD Primary Care Provider [phone] Encounter Details Date Type Department Care Team ([facility] st Contact Info) Description 03/18/2024 Telephone [facility] MEDICINE [address] [place], [place] [phone] Rubi Weston MD [address] [place], [place] [phone] Social History Tobacco Use Types Packs/Day Years [...] on filedocumented in this encounter Care Teams Trash Truck Driver Relationship Specialty Start Date End Date Rubi Weston MD [address] [place] [address] PCP - General Family Medicine 09/28/20 documented as of this encounter
--- OUTSIDE RECORDS SUMMARY | 2025-07-20 17:48 | XMS_ITS | Encounter Summary ---
Author Organization [employer] Address [address] [place] [address] 7t [place] [address] Care Team Providers Care Pickle Sorter Name Role Phone Rubi Weston MD Primary Care Provider [phone] Encounter Details Date Type Department Care Team ([facility] st Contact Info) Description 03/19/2024 Orders Only [facility] MEDICINE [address] [place], [place] [phone] Rubi Weston MD [address] [place], [place] [phone] Social History Tobacco Use Types Packs/Day Years [...] on filedocumented in this encounter Care Teams Pickle Sorter Relationship Specialty Start Date End Date Rubi Weston MD [address] [place] [address] PCP - General Family Medicine 09/28/20 documented as of this encounter
--- OUTSIDE RECORDS SUMMARY | 2025-07-20 17:48 | XMS_ITS | Encounter Summary ---
Author Organization [employer] Address [address] [place] [address] 7 [place] [address] Care Team Providers Care Occup Ther Name Role Phone Rubi Weston MD Primary Care Provider [phone] Reason for Visit * Reason Onset Date Comments Results 04/25/2023 Encounter Details Date Type Department Care Team (Late st Contact Info) Description 04/25/2023 Telephone [facility] MEDICINE [address] [place], [place] [phone] Rubi Weston MD [address] [place], [place] [phone] Results Social History Tobacco Use Types Packs/Day [...] Miscellaneous Notes * Telephone Encounter - Na Antonoi RN - 04/26/2023 10:36 AM EDT T/C to pt. For below message, pt. States she already see DrSony And no questions or concerns right now. Advised to give call back on [phone] if any questions or concerns. * Telephone Encounter - Soumya Harden - 04/25/2023 9:25 AM EDT Tc from pt requesting a call in regards to recent lab results. Please contact pt at [phone] documented in this encounter Plan of Treatment Not on file documented as of this encounter Visit Diagnoses Not on filedocumented in this encounter Care Teams Occup Ther Relationship Specialty Start Date End Date Rubi Weston MD [address] [place] [address] PCP - General Family Medicine 09/28/20 documented as of this encounter
--- OUTSIDE RECORDS SUMMARY | 2025-07-20 17:48 | XMS_ITS | Data Portability ---
Author Organization [email or web address] [facility], [email or web address] Address [address] [place] [address] Care Team Providers Care Hospitality Associate Name Role Phone Unavailable Primary Care Provider [phone] HIM CCA OTHER Assessment Encounter Date Assessment Date Assessment LastModified by Organization Details LastModified Time 07/24/2024 07/24/2024 I provided real -time medical direction via phone for this encounter, and was available for additional phone based assistance as needed. I have reviewed and agree with the Assessment and Plan as documented by the Resist Coater Developer. We discussed the diagnostic uncertainty of home [...] verbalized understanding of instructions to the medic [email or web address] Not available 07/24/2024 13:00:12 11/20/2024 11/20/2024 I have reviewed and agree with the assessment and plan as documented by the gold assayer. I provided real time medical direction for this encounter and was immediately available to provide additional phone based assistance as needed. History as noted by gold assayer. Pt reporting 3-4 days of URI symptoms with BINDER COVERSTITCH cough, congestion, WATTERS, sore throat and feeling feverish. No CP or SOB. She is using coricidin for cough. On exam, pt appears well, no distress. Vitals and O2 sat normal. Afebrile. Lung exam normal. Rapid Covid, flu and strep all negative. Impression: Pt with a viral URI and diagnosis d/w the pt. Pt is prescribed guaifenesin and benzonatate to use for her symptoms and she is informed that she may have a copay for the benzonatate. She is also told to use her tylenol and/or ibuprofen prn sore throat. Pt instructed to seek medical attention right away with any worsening or new symptoms, which are reviewed with her. [email or web address] Not available 11/20/2024 13:36:02 Plan of Treatment Reminders Order Date Submit Date Provider Last Modified By Organization Details Last Modified Time Details Appointments None recorded. Lab rapid SARS CoV 2 Ag, QL IA, respiratory specimen 2024 025 [facility], [address] [place] [address], [id number] 5 16:20:05 rapid flu (A+B) [address], [address] [place] [address] 5 16:20:41 rapid strep group A, throat [address], [phone] 5 16:21:41 rapid SARS CoV 2 Ag, QL IA, respiratory specimen 2023 024 [email or web address] 0 [facility], [address] [place] [address], [address] [place] [address] 4 13:10:11 rapid flu (A+B) 2023 024 [email or web address] 0 [facility], [address] [place] [address], [id number] 4 13:10:11 rapid strep group A, throat 2023 024 [email or web address] 0 [facility], [address] [place] [address], [id number] 4 13:10:11 glucose, fingerstick , blood 2023 024 [email or web address] 0 [facility] - [address], [address] [place] [address] 4 13:10:40 Referral None recorded. Procedures None recorded. Surgeries None recorded. Imaging None recorded. Medication Orders guaifenesin ER 600 mg tablet, extended release 12 hr 2024 025 [facility], [address] [place] [address], [address], 5 13:32:08 benzonatate 200 mg capsule 2024 025 [facility], [address] [place] [address], [address], 5 13:32:09 fluticasone propionate 50 mcg/actuati on nasal spray,suspe nsion 2023 024 [facility], [address] [place] [address], [address], 4 13:10:19 benzonatate 200 mg capsule 2023 024 [facility], [address] [place] [address], [address], 4 13:10:20 Patient TargetsNo targets recorded. Patient InstructionsNo instructions recorded. Reason for Referral None Reported. Results Created Date Observation Date Name Description Value Unit Range Abnormal Flag Note LastModifiedBy Organization Detail LastModifiedTime 07/24/20 24 07/24/2024 gluco se, finge rstic k, blood Blood Glucose: mg/dl 189 Not Available [facility] [address] [place] [address], [phone] 07/24/2024 13:10:26 07/24/20 24 07/24/2024 rapid strep group A, throa t Strep negati ve Not Available [facility] [address] [place] [address], [id number] 07/24/2024 13:04:14 07/24/20 24 07/24/2024 rapid flu (A+B) Flu negati ve Not Available [facility] [address] [place] [address], [phone] 07/24/2024 13:04:13 07/24/20 24 07/24/2024 rapid SARS CoV 2 Ag, QL IA, respi rator y speci men rapid SARS CoV 2 Ag, QL IA, respiratory specimen negati ve Not Available [facility] [address] [place] [address], [phone] 07/24/2024 13:04:12 11/21/19 25 11/20/2024 rapid strep group A, throa t Strep negati ve Not Available [facility] ed [address] [place] [address], [address] 11/20/2024 13:29:43 11/21/19 25 11/20/2024 rapid flu (A+B) Flu negati ve Not Available [facility] ed [address] [place] [address], [phone] 11/20/2024 13:29:40 11/21/19 25 11/20/2024 rapid SARS CoV 2 Ag, QL IA, respi rator y speci men rapid SARS CoV 2 Ag, QL IA, respiratory specimen negati ve Not Available [facility] ed [address] [place] [address], [address] 11/20/2024 13:29:35 Result Notes None recorded. Medical Equipment None Reported. Medications Name Sig Start Date Stop Date [...] tablet TAKE 1 TABLET BY MOUTH ONCE DAILY, WITH IRON active Not Available Not Available No t Available cetirizine 10 mg tablet active Not Available Not Available No t Available ibuprofen 800 mg tablet TAKE 1 TABLET BY MOUTH NEEDED IN THE MORNING AND 1 TABLET AT BEDTIME FOR MODERATE PAIN active Not Available Not Available No t Available benzonatate 200 mg capsule Take 1 capsule 3 times a day by oral route as needed for 10 days, for cough. 2024 active Not Available Not Available Not Avai [...] 1 TABLET BY MOUTH ONCE DAILY WITH BREAKFAST. DO NOT CRUSH, CHEW OR SPLIT active Not Available Not Available No t [...] Not Available Not Available No t Available guaifenesin ER 600 mg tablet, extended release 12 hr Take 1 tablet every 12 hours by oral route as needed for 10 days, for cough, congestion . 2024 active Not Available Not Available Not Avai lable Vitals Date Recorded Respiratory rate Body height Heart rate Body weight Body temperature Oxygen saturation Systolic And Diastolic Provider Name and Address Organization Details Last Updated DateTime 5 14 /min 162.56 cm 76 /min 37767.6 g 98.4 [degF] 99 % 131/69 mm[Hg] Not Available [facility] 5 13:25:08 Date Recorded Oxygen saturation Heart rate Body weight Body temperature Respiratory rate Systolic And Diastolic Provider Name and Address Organization Details Last Updated DateTime 4 98 % 84 /min 98642.5 6 g 97.8 [degF] 16 /min 118/76 mm[Hg] Not Available [facility] production 12:49:50 Social History None recorded. Functional Status None recorded. Mental Status None recorded. Family History Nothing Reported. Medical History No medical history recorded. Gynecological HistoryNo gynecological history recorded. Obstetrics History GPAL:G 0 P 0 0 0 0 Past Encounters Encounter ID Performer Location Encounter Start Date Encounter Closed Date Diagnosis/Indication Diagnosis SNOMED-CT Code Diagnosis ICD10 Code Diagnosis IMO Codes Diagnosis Note [id number] Mini Wick MD [facility] [address] [place] [phone] 07/24/2024 12:49:41 07/24/2024 13:56:10 Upper respiratory infection 12608468 J06.9 Likely viral, patient is afebrile with [...] rx card-to help defray costs-Red flags reviewed [id number] Irineo Hess MD [facility] [address] [place] [phone] 11/20/2024 13:24:50 11/20/2024 15:26:27 Viral upper respiratory tract infection 775010078 J06.9 [id number] Health Concerns Section Related Observation LastModified by Organization Detai ls LastModified Time None Recorded Concern Status LastModified by Organization Details LastModified Time None Recorded Advance Directives Directive None Recorded Payers Insurance Date Sequence Insurance Name Policy Number Policy Mancilla Covered Member ID Mancilla Member ID Guarantor Name 11/20/2024 1 [facility] - DOS ON OR AFTER 2022 - DUAL ELIGIBLE - LONGTERM OPTIONS AND ONE CARE (MEDICARE REPLACEMENT/ADV ANTAGE - HMO) Lakshmi Colon [id number] Lakshmi Colon Notes Date Note Type Note Provider Name and Address Organization Details Recorded Time 07/24/2024 text/html ROS as noted in the [facility] CRC Nurse Triage Notes (Demetra Orellana): Reason [...] n/v/d. She would like to be evaluated. Resist Coater Developer Organization Information for Serg Padilla Business Legal Name: [facility] Address: [address] [place] [address], [place] [address], Blocker Hand: Ayo Adair MD CLIA No.: [id number] Resist Coater Developer POC Test Results from Serg Padilla Rapid [...] .................... .................... .................... .................... .................... .................... . Resist Coater Developer Note From Serg Padilla: Pt co cold [...] Pt had good skin color and turgor. [facility] [place] contacted and RX for Flonase and Benzonate called in for garbage pick up worker. Pt aware benzonatate may not be covered with insurance. Pt advised to drink fluids and rest. Pt advised to monitor symptoms and of worsen to call back or contact PCP. Pt education on signs indicating the ER. Pt signed hard copy consent and was uploaded. .................... .................... .................... .................... .................... .................... .................... . [facility] Consulted: Mini Wick .................... .................... .................... .................... .................... .................... .................... . Disposition: Fulfilled Mini Wick MD [address] [facility],[address], [place], [phone], [employer] 07/24/2024 13:45:37 11/20/2024 text/html ROS as noted in the HPI This was a supervised home visit with gold assayer Hubert Britton. CRC Nurse Triage Notes (Avis Dupree - AILEEN): Reason For Request: Pt reporting headache that is affecting vision and sleep>fever/chills>n egative with home covid test>sore throat, cough, denies congestion>symptoms going 3-4 days Chief Complaints: Common Cold PMH: Hypertension, Diabetes Mellitus Type 2, Appendectomy, Fibromyalgia, Depression, Anxiety Disorder PMH Reviewed at 11/20/2024 - :07 Allergies Reviewed at 11/20/2024 - : Comments: c/o fever, not feeling good, coughing, headaches, sore throat, not sleeping good, no sick contacts. Taking OTC meds, hx of HTN. Not helping, symptoms for 3-4 days Education provided on the response time and the member was advised to monitor reported s/s and seek emergency treatment if needed Jacinda GALLAGHER Resist Coater Developer Organization Information for Hubert Britton Legal Name: [facility] Address: [address] [place] [address], [place] [address], Blocker Hand: Ayo Adair MD [place] No.: [id number] Resist Coater Developer POC Test Results from Hubert Britton Rapid COVID antigen (13:15:04) COVID: - Rapid influenza antigen (13:15:05) Flu: - Rapid strep test (13:21:37) Strep: - .................... .................... .................... .................... .................... .................... .................... . Resist Coater Developer Note From Hubert Britton: Patient alert and oriented, complains of headache, congestion, frequent nonproductive cough times three days. Patient also complains of tiredness. Patient denies chest pain, nausea, vomiting, diarrhea, or any other pain or complaints. Patient reports normal appetite, intake and elimination. Patient reports insomnia due to coughing last night. Patient reports using Coricidin HBP with a little effect. Patient pink warm dry secondary exam unremarkable. Lung sounds clear negative increased work of breathing positive full sentences abdomen soft, nontender extremities unremarkable no edema noted. Patient negative for Covid strep and flu via rapid POC. [facility] recommends ibuprofen or Tylenol, will prescribe Mucinex and benzonatate to patient s local pharmacy for garbage pick up worker. Patient demonstrates understanding of care and plan. Red flags patient education discussed. [facility] Lab Orders: rapid SARS CoV 2 Ag, QL IA, respiratory specimen: Performed rapid flu (A+B): Performed rapid strep group A, throat: Performed .................... .................... .................... .................... .................... .................... .................... . [facility] Consulted: Irineo Hess .................... .................... .................... .................... .................... .................... .................... . Disposition: Fulfilled Irineo Hess MD [address] [facility],[address], [place], [address], [employer] 11/20/2024 14:02:05 OBGyn Episode No OBEpisode recorded.
--- OUTSIDE RECORDS SUMMARY | 2025-07-20 17:48 | XMS_ITS | Encounter Summary ---
Author Organization [employer] Address [address] [place] [address] [address] [place] [address] Care Team Providers Care Mechanical Process Engineer Name Role Phone Rubi Weston MD Primary Care Provider [phone] Reason for Visit * Reason Onset Date Comments Appointment Request 03/05/2024 Encounter Details Date Type Department Care Team ([facility] st Contact Info) Description 03/05/2024 Telephone [facility] MEDICINE [address] [place] [address] Rubi Weston MD [address] [place], [place] [phone] Appointment Request Social History Tobacco Use Types [...] the past 12 months, has t he [employer], [employer], [employer] or water e[employer] threatened to shut off services in your [...] or appt notice. Please contact pt at [phone]. documented in this encounter Plan of Treatment Not on file documented as of this encounter Visit Diagnoses Not on filedocumented in this encounter Care Teams Mechanical Process Engineer Relationship Specialty Start Date End Date Rubi Weston MD [address] [place] [address] PCP - General Family Medicine 09/28/20 documented as of this encounter
== END 2025-07-20 15:18 | disposition home or self-care (01) ==
PROVIDERS: PCP General Practice; Visit Provider Internal Medicine Cardiovascular Disease
DX: I10 Essential (primary) hypertension (principal); E78.5 Hyperlipidemia, unspecified
CPT/HCPCS: 93010; 99214

== ENCOUNTER → 2025-07-20 14:30 | Outpatient (BNVA) | payer OTHER, SELFPAY | PROVIDERS: Visit Provider Internal Medicine Cardiovascular Disease | DX: I10 Essential (primary) hypertension (principal); E78.5 Hyperlipidemia, unspecified; E11.9 Type 2 diabetes mellitus without complications; Z79.899 Other long term (current) drug therapy; Z79.84 Long term (current) use of oral hypoglycemic drugs | CPT/HCPCS: 93005; 99212 ==